=== PATIENT | female | born 1950 | race Caucasian/White ===

== ENCOUNTER 2020-04-09 13:37 | Emergency (ER) | payer MEDICARE, SELFPAY ==
--- NOTE | ~2020-04-09 | XR_ITS ---
XR ankle RT min 3V DATE: 04/09/2020 13:55 INDICATION: Fell one week ago. Right ankle and foot pain TECHNIQUE: 4 views COMPARISON: None FINDINGS: There is a virtually nondisplaced lateral malleolar fracture. The medial malleolus and post erior malleolus appear intact and the ankle mortise is preserved. Diffuse osteopenia. Plantar calcaneal enthesopathy. IMPRESSION: Virtually nondisplaced lateral malleolar fracture Reviewed, dictated and finalized at location B. TING PRESS MACHINE OPERATOR
--- NOTE | ~2020-04-09 | XR_ITS ---
XR foot RT min 3V DATE: 04/09/2020 13:55 INDICATION: Fall one week ago. Right ankle and foot pain TECHNIQUE: 4 views COMPARISON: None FINDINGS: Diffuse osteopenia. Mild plantar calcaneal enthesopathy. There is soft tissue swelling particularly along the dorsum of the forefoot. Minimally displaced lateral malleolar fracture is again demonstrated. No other fracture or dislocatio n. No periosteal reaction or bone destruction. IMPRESSION: Minimally displaced lateral malleolar fracture Plantar calcaneal enthesopathy Osteopenia Reviewed, dictated and finalized at location B. MANAGER
[2020-04-09 13:45] VITALS: BP 148/84; PULSE 75; RESP 16; TEMP 36.3; O2SAT 99
--- NOTE | 2020-04-09 14:09 | ED.LOWEXIN ---
HPI - Extremity Injury (Lower) General Chief Complaint: Extremity Injury, Lower Stated Complaint: FALL/INJURED R ANKLE/FOOT Time Seen by Provider: 04/09/20 14:00 Source: patient Mode of arrival: ambulatory Limitations: no limitations History of Present Illness HPI Narrative: Vibha Ryan is a 70 yo femalw with a PMH of breast cancer, nocturnal seizures, and high cholesterol, who comes [facility] today with right foot and ankle pain and swelling after a fall that occurred 1 week ago. Patient is feeding birds and fell on the ice and has had pain with ambulation, has been using cane to ambulate. There is mild swelling to the lower leg below the patella but no tenderness are redness, but lateral ankle appears quite swollen, rates pain as 4-5 out of 10 when tries to ambulate, not much pain at rest MD complaint: hip injury Related Data Home Medications Medication Instructions Recorded Confirmed levetiracetam 750 mg PO BID 04/09/20 04/09/20 omeprazole 20 mg PO DAILY 04/09/20 04/09/20 pravastatin 40 mg PO EVERY OTHER DAY 04/09/20 04/09/20 Allergies Allergy/AdvReac Type Severity Reaction Status Date / Time adhesive Allergy Unknown ITCHING Verified 04/09/20 14:16 cyclosporine [From Restasis] Allergy Blurry Verified 04/09/20 14:21 Vision exemestane Allergy Swelling Verified 04/09/20 14:21 ibandronate sodium Allergy Rash Verified 04/09/20 14:21 [From Boniva] melatonin Allergy Depression Verified 04/09/20 14:21 piroxicam Allergy Nose Bleed Verified 04/09/20 14:21 tamoxifen Allergy Other Verified 04/09/20 14:21 zolpidem Allergy Depression Verified 04/09/20 14:21 Review of Systems Review of Systems: Narrative: CONSTITUTIONAL: Denies fever, chills, sweats. EYES: Denies visual changes, redness, discharge. ENT: Denies rhinorrhea, congestion, sore throat, otalgia. CARDIOVASCULAR: Denies chest pain, palpitations, edema. RESPIRATORY: Denies dyspnea, wheezing, cough GASTROINTESTINAL: Denies abdominal pain, nausea, vomiting, diarrhea. GENITOURINARY: Denies dysuria, hematuria, abnormal discharge SKIN: Denies rash or itching. NEUROLOGIC: Denies numbness, or focal weakness. PSYCHIATRIC: Denies anxiety or depression. Right ankle pain and swelling (swelling starts below knee to foot) PMF Past Medical History Medical History (Updated 04/09/20 @ 14:43 by Jennifer Ho CNP) Breast cancer High cholesterol Nocturnal seizures Osteopenia Surgical History Surgical History H/O mastectomy Social History Social History (Updated 04/09/20 @ 14:37 by Jennifer Ho CNP) Smoking status: Never smoker Alcohol intake: current Comments At time of signature, I agree with nursing past medical, surgical, social and family history. There is no relevant family history pertinent to the presenting complaint. Exam Narrative: Exam Narrative: GENERAL: This is a well-nourished, well-developed patient, in mild distress. HEAD: normocephalic, atraumatic. EYES: PSclera clear/white. Vision is grossly intact. EARS: External ears normal, n. Hearing grossly intact. NOSE: External nose normal without nasal discharge, nares without redness, no rhinorrhea. THROAT: Mucous membranes moist, NECK: Neck supple, CARDIOVASCULAR: Regular rate and rhythm without murmurs, gallops, or rubs. RESPIRATORY: Clear to auscultation. Breath sounds equal bilaterally. No wheezes, rales, or rhonchi. GASTROINTESTINAL: Abdomen soft, SKIN: warm, intact with no suspicious lesions or rash, good texture and turgor. NEURO: awake, alert, and oriented to person, place and time. There were no obvious focal neurologic abnormalities. Steady gait EXTREMITIES: Normal range of motion on L; right ankle lateral swelling, able to wiggle toes with pain on any movement, pedal pulse, leg are swollen below the patella to foot but no warmth redness or pain in the calf, patient has normal strength and extremity normal
== END 2020-04-09 14:55 | disposition home or self-care (01) ==
PROVIDERS: Emergency Provider Nurse Practitioner; PCP Internal Medicine
DX: S82.61XA Displaced fracture of lateral malleolus of right fibula, initial encounter for closed fracture (principal); W00.0XXA Fall on same level due to ice and snow, initial encounter; Z85.3 Personal history of malignant neoplasm of breast; E78.00 Pure hypercholesterolemia, unspecified; M85.80 Other specified disorders of bone density and structure, unspecified site; G40.909 Epilepsy, unspecified, not intractable, without status epilepticus; Z90.10 Acquired absence of unspecified breast and nipple
CPT/HCPCS: 73610; 73630; 99214; G0463

== ENCOUNTER 2020-08-04 16:16 | Outpatient (CLI) | payer MEDICARE, SELFPAY ==
--- NOTE | ~2020-08-04 | US_ITS ---
EXAMINATION: US venous doppler LE RT DATE: 08/04/2020 16:47 INDICATION: Right lower limb pain and swelling TECHNIQUE: Grayscale ultrasound images without and with compression and Doppler ultrasound images of the right lower extremity veins were obtained. COMPARISON: None. FINDINGS: The [id number] right popliteal vein is noncompressible, filled with hypoechoic thrombus with smal l amount of residual flow seen on color Doppler. The visualized portions of right common femoral vein , profunda (deep) femoral vein, femoral vein, proximal popliteal vein, posterior tibial veins, perone al veins, gastrocnemius vein and greater saphenous vein outflow are patent. IMPRESSION: 1. Nonocclusive deep venous thrombosis in the pcpnz-[id number]-bgxd right popliteal vein. Reviewed, dictated and finalized at location A. IMPRESSION: 1. Nonocclusive deep venous thrombosis in the [id number]-[id number] right popliteal v ein.
[2020-08-04 17:46] LABS: Basophils Absolute Auto 0.1 K/mm3 (0.0-0.1); Basophils Percent Auto 0.7 % (0.2-1.2); Eosinophils Absolute Auto 0.1 K/mm3 (0-0.3); Eosinophils Percent Auto 1.2 % (0-4.4); Hematocrit 42.6 % (37.0-47.0); Hemoglobin 13.7 g/dL (12.0-15.0); Immature Granulocyte Absolute 0.03 K/mm3 (0.00-0.031); Immature Granulocyte Percent A 0.4 % (0-0.5); Lymphocytes Absolute Auto 2.29 K/mm3 (0.9-3.2); Lymphocytes Percent Auto 27.9 % (18.3-44.2); Mean Corpuscular HGB Conc 32.2 g/dl (32-36); Mean Corpuscular Hemoglobin 31.2 pg (26-34); Mean Platelet Volume 9.2 fl (7.4-10.4); Monocytes Absolute Auto 0.6 K/mm3 (0.1-0.6); Monocytes Percent Auto 7.3 % (2.6-8.5); Neutrophils Absolute Auto 5.1 K/mm3 (1.3-6.7); Neutrophils Percent Auto 62.5 % (45.5-73.1); Platelet Count Result 298 k/mm3 (150-375); Red Blood Count 4.39 M/mm3 (4.2-5.4); Red Cell Distribution Width 13.4 % (11.5-14.5); White Blood Count 8.2 K/mm3 (4.5-10.0)
[2020-08-04 17:56] LABS: Alanine Aminotransferase 38 U/L (4-35); Alkaline Phosphatase 76 U/L (38-126); Anion Gap 11 mmol/L (8-16); Aspartate Amino Transferase 50 U/L (14-36); Bilirubin,Total 0.5 mg/dL (0.2-1.3); Blood Urea Nitrogen 16 mg/dL (7-17); Calcium 10.1 mg/dL (8.4-10.2); Carbon Dioxide 28 mmol/L (22-30); Chloride 104 mmol/L (98-107); Estimated Glomerular Filt Rate > 60; Glucose 92 mg/dL (65-105); Potassium 4.2 mmol/L (3.4-5.0); Sodium 143 mmol/L (137-145)
== END 2020-08-04 16:17 | disposition home or self-care (01) ==
PROVIDERS: PCP Internal Medicine; Visit Provider Clinical Nurse Specialist
DX: I82.431 Acute embolism and thrombosis of right popliteal vein (principal)
CPT/HCPCS: 36415; 80053; 85025; 93971

== ENCOUNTER 2020-11-10 12:19 | Outpatient (CLI) | payer MEDICARE, SELFPAY ==
--- NOTE | ~2020-11-10 | US_ITS ---
EXAMINATION: US venous doppler LE RT DATE: 11/10/2020 12:51 INDICATION: Acute embolism and thrombosis of unspecified deep veins of unspecified lower extremity. TECHNIQUE: Grayscale ultrasound images without and with compression and Doppler ultrasound images of the right lower extremity veins were obtained. COMPARISON: Ultrasound 08/04/2020 FINDINGS: The visualized portions of right common femoral vein, profunda (deep) femoral vein, femoral vein, pop liteal vein, peroneal veins, posterior tibial veins, and greater saphenous vein outflow are patent. IMPRESSION: 1. No deep venous thrombosis. Reviewed, dictated and finalized at location A.
== END 2020-11-10 12:20 | disposition home or self-care (01) ==
LOC: ANHIMG 12:25
PROVIDERS: PCP Internal Medicine; Visit Provider Clinical Nurse Specialist
DX: I82.401 Acute embolism and thrombosis of unspecified deep veins of right lower extremity (principal); I82.431 Acute embolism and thrombosis of right popliteal vein
CPT/HCPCS: 93971

== ENCOUNTER 2020-11-25 08:00 | Outpatient (RCR) | payer MEDICARE, SELFPAY ==
--- NOTE | 2020-09-02 11:37 | PTOPEVAL ---
Thank you for referring Vibha Ryan to [facility].? The patient is scheduled to be seen for therapy? 2 x/week for 6 weeks. Please review, sign, date and return this plan of care MO. I agree with and certify that the following plan of care is medically necessary. Referring Physician Date Attending Provider: Rand Alvarado NP Diagnosis right fibula fx, left knee and hip pain with OA Onset 04/02/20 Cause fall Additional Evaluation Detail She went to feed the birds and she slipped on a wet ground. She was in a boot for 8 wks. She did not have an AD. On blood thinners due to DVT right lower leg Subjective Information She currently c/o right ankle Query Text:As Reported By Patient/ pain and left knee/hip pain. Family She reports limitations with walking, ADL's, bending activities, car transfers, transfers from low surfaces, negotiating steps. She has difficulty with prolonged standing. She has difficulty sleeping at night due to pain. She denies popping/clicking of left hip, but constant groin pain. Pain Assessment Left Knee(s) Reported Pain Level 1 Pain Description Aching Pain Frequency Continuous Lowest Pain Intensity 1 Greatest Pain Intensity 4 Pain Aggravating Factors ADL's,Bending,Lifting Left Hip(s) Reported Pain Level 4 Pain Description Sharp,Shooting Pain Frequency Continuous Greatest Pain Intensity 8 Pain Aggravating Factors ADL's,Bending,Exercise/ Activity,Lifting,Stair Climbing,Walking,Weight Bearing/Standing Right Ankle(s) Reported Pain Level 1 Pain Description Aching Pain Frequency Continuous Lowest Pain Intensity 1 Greatest Pain Intensity 8 Pain Aggravating Factors ADL's,Bending,Exercise/ Activity,Stair Climbing, Walking,Weight Bearing/ Standing Lower Extremity Range of Motion Ankle/Foot Range of Motion Right Ankle Dorsiflexion With Knee Extension 5 Range of Motion - Active Ankle Plantarflexion Range of Motion - 34 Active
--- NOTE | 2020-10-07 15:05 | PTOPEVAL ---
Physical Therapy Progress Note Thank you for referring Vibha Ryan to [facility].? She has received 10 therapy visits to address limitations. She is progressing slowly towards goals. See summary below for detail of information. The patient is scheduled to be seen for therapy? 1-2 x/week for 4 weeks. Please review, sign, date and return this plan of care MO. I agree with and certify that the following plan of care is medically necessary. Referring Physician Date Attending Provider: Rand Alvarado Diagnosis right fibula fx, left knee and hip pain with OA Onset 04/02/20 Cause fall Additional Evaluation Detail She went to feed the birds and she slipped on a wet ground. She was in a boot for 8 wks. She did not have an AD. On blood thinners due to DVT right lower leg until 11/09/20 Subjective Information She reports increased LE Query Text:As Reported By Patient/ swelling. She does feel her Family walking has improved with therapy. She has varied pain and ability to dominguez activities. She cont to intense left hip pain, ache pain of left knee and right ankle pain varies. She reports cont limitations with walking, ADL's, bending activities, car transfers, transfers from low surfaces, negotiating steps. She has difficulty with prolonged standing. She has difficulty sleeping at night due to left hip pain. Pain Assessment Left Knee(s) Reported Pain Level 3 Pain Description Aching,Tightness Lowest Pain Intensity 3 Greatest Pain Intensity 6 Pain Aggravating Factors Prolonged Position,Sitting Left Hip(s) Reported Pain Level 3 Pain Description Soreness,With Movement Pain Frequency Continuous Lowest Pain Intensity 3 Greatest Pain Intensity 7 Pain Aggravating Factors Exercise/Activity,Prolonged Position,Sitting,Walking, Weight Bearing/Standing Right Ankle(s) Reported Pain Level 3 Pain Description Tightness Lowest Pain Intensity 1 Greatest Pain Intensity 4 Pain Aggravating Factors ADL's,Bending,Exercise/ Activity,Stair Climb
--- NOTE | 2020-11-08 11:18 | PTOPEVAL ---
Physical Therapy progress note Thank you for referring Vibha Ryan to [facility].?Vibha has attended 19 therapy visits to address sona LE impairments. She is progress towards her therapy goals with improved pain, function, strength and joint motion. Please see update below for information on progress. The patient is scheduled to be seen for therapy? 2x/week for 4 weeks. Please review, sign, date and return this plan of care MO. I agree with and certify that the following plan of care is medically necessary. Referring Physician Date Admitting Provider: Attending Provider: Rand Alvarado NP Diagnosis right fibula fx, left knee and hip pain with OA Onset 04/02/20 Cause fall Additional Evaluation Detail She went to feed the birds and she slipped on a wet ground. She was in a boot for 8 wks. She did not have an AD. On blood thinners due to DVT right lower leg until 11/09/20 Subjective Information She reports improved right Query Text:As Reported By Patient/ ankle swelling. She has Family difficulty with sleeping due to pain and acheness with positional changes. She had increased pain after long car ride with prolong sitting position Pain Assessment Left Knee(s) Reported Pain Level 2 Pain Description Aching,Cramping Lowest Pain Intensity 1 Greatest Pain Intensity 5 Left Hip(s) Reported Pain Level 1 Pain Description Aching Lowest Pain Intensity 1 Greatest Pain Intensity 3 Right Ankle(s) Reported Pain Level 0 Lowest Pain Intensity 0 Greatest Pain Intensity 1 Lower Extremity Range of Motion General Lower Extremity Range of Motion Gross Lower Extremity Range of Motion left hip flex: 90 dg active Comments and 96 dg passive, left hip ext: -10 dg from neutral range and -2 passive hip ext from neutral left knee: 125 dg active Ankle/Foot Range of Motion Right Ankle Dorsiflexion With Knee Extension 5 Range of Motion - Active Ankle Plantarflexion Range of Motion - 50 Active Query Text: Ankle Eversion Range of Motion - Active 12 Ankle Eversion Range of Motion - Passive 18 Ankle Inversion Range of Motion - Active 22 Ankle Inversion Range of Motion - 25 Passive Ankle/Toe Range of Motion Limitations Edema,Soft Tissue Restriction Lower Extremity Muscle Strength Te
--- NOTE | 2020-11-29 11:58 | PCPTNOTE ---
This treatment is being continued on visit number [id number]. Please see documentation on both accounts to view progress. Completed interventions, outcomes, and problems have been marked as Inactive to facilitate the copying of the Care plan routine for recurring accounts.
== END 2020-11-29 09:22 | disposition home or self-care (01) ==
LOC: ANHPT 08:00
PROVIDERS: PCP Internal Medicine
DX: M17.12 Unilateral primary osteoarthritis, left knee (principal); M16.12 Unilateral primary osteoarthritis, left hip; S82.891D Other fracture of right lower leg, subsequent encounter for closed fracture with routine healing
CPT/HCPCS: 97110; 97112; 97140; 97162; 97530

== ENCOUNTER 2020-12-02 07:07 | Outpatient (RCR) | payer MEDICARE, SELFPAY ==
--- NOTE | 2020-11-29 11:59 | PCPTNOTE ---
The treatment documented on this account is a continuation of the treatment documented on visit number 23 from [id number]. Please see documentation on both accounts to view progress. The Plan of Care has been transitioned and updated within the new V#[id number]. I have addressed and agree with the discipline specific Problems, Interventions, and Goals for the current certification period. Completed interventions, outcomes, and problems have been marked as Inactive to facilitate the copying of the Care plan routine for recurring accounts.
--- NOTE | 2020-12-02 10:44 | PTOPEVAL ---
Physical Therapy Discharge Note Thank you for referring Vibha Ryan to [facility].? Vibha has attended 25 therapy visits to address her LE impairments. As result of skilled therapy services she demonstrates improved joint motion, LE strength, pain level and ability to perform functional task. She has partially achieved her therapy goals at this time. Will DC skilled therapy services with recommendations she continue with her walking and HEP. Please review, sign, date and return this discharge note MO. I agree with and certify that the following plan of care is medically necessary. Referring Physician Date Attending Provider: Rand Alvarado Diagnosis right fibula fx, left knee and hip pain with OA Onset 04/02/20 Cause fall Additional Evaluation Detail She went to feed the birds and she slipped on a wet ground. She was in a boot for 8 wks. She did not have an AD. On blood thinners due to DVT right lower leg until 11/09/20 Subjective Information She has improved right ankle Query Text:As Reported By Patient/ swelling, but change in shape Family of lower leg as swelling decreased. Reports improved ability to tolerate sleeping and turning in bed with improved symptoms. She denies any pain after long car ride with prolong sitting position. Pain Assessment Left Knee(s) Reported Pain Level 0 Pain Description Aching Lowest Pain Intensity 0 Greatest Pain Intensity 2 Left Hip(s) Reported Pain Level 3 Pain Description Aching Pain Frequency Continuous Lowest Pain Intensity 2 Greatest Pain Intensity 5 Right Ankle(s) Reported Pain Level 0 Lowest Pain Intensity 0 Greatest Pain Intensity 1 Lower Extremity Range of Motion General Lower Extremity Range of Motion Gross Lower Extremity Range of Motion sona hip flex: 110 dg passive left hip ext: 0 dg and 2 passive hip ext from neutral right hip ext: 8 dg left knee: 0-128 dg active Ankle/Foot Range of Motion Right Ankle Eversion Range of Motion - Active 15 Ankle Eversion Range of Motion - Passive 25 Ankle Inversion Range of Motion - Active 30 Lower Extremity Muscle Strength Testing Hip Strength Right Hip Flexion Strength 5 Normal Hip Extension Strength 4- Good - Hip Abduction Strength 4- Good - Left Hip Flexion Strength 5 Normal
== END 2020-12-02 15:34 | disposition home or self-care (01) ==
LOC: ANHPT 07:07
PROVIDERS: PCP Internal Medicine
DX: M17.12 Unilateral primary osteoarthritis, left knee (principal); M16.12 Unilateral primary osteoarthritis, left hip; S82.891D Other fracture of right lower leg, subsequent encounter for closed fracture with routine healing
CPT/HCPCS: 97110

== ENCOUNTER → 2020-12-15 13:21 | Outpatient (CLI) | payer MEDICARE, SELFPAY ==
--- NOTE | ~2020-12-15 | MM_ITS ---
EXAMINATION: MM screening kemal LT w enrike HISTORY: Screening mammogram TECHNIQUE: Craniocaudal and mediolateral oblique 3-D tomosynthesis images were obtained and synthetic 2-D images were generated. CAD analysis was submitted and interpreted. COMPARISON: No prior mammogram is available for comparison at this institution. BREAST PARENCHYMAL COMPOSITION: There are scattered areas of fibroglandular density. FINDINGS: There are two low density circumscribed 4 - 5 mm opacities in the mid to lower outer left b reast; the appearance is benign. There is no evidence of suspicious mass, calcification, or architec tural distortion to suggest malignancy in either breast. IMPRESSION: 1. No mammographic evidence of malignancy. 2. Recommend routine screening mammography in one year. BI-RADS Category 2: Benign finding(s). Reviewed, dictated and finalized at location A.
== END ==
PROVIDERS: PCP Internal Medicine; Visit Provider Clinical Nurse Specialist
DX: Z12.31 Encounter for screening mammogram for malignant neoplasm of breast (principal)
CPT/HCPCS: 77063; 77067

== ENCOUNTER 2020-12-27 01:56 | Day surgery (SDC) | payer MEDICARE, SELFPAY ==
[2020-12-07 12:50] VITALS: BMI 30.9
[2020-12-27 09:29] VITALS: BP 134/82; PULSE 84; RESP 22; TEMP 37.1; O2SAT 96; BMI 30.4
[2020-12-27] MEDS: LACTATED RINGERS 1,000 ML 150 ML IV CONT (09:40)
--- NOTE | 2020-12-27 09:46 | WPDANESEPPF ---
Anes - Initial Pre Proc Eval Procedure: Operation Date: 12/27/20 10:30 Proposed Procedures p Colonoscopy - Piter Mejia MD Date/Time: 12/27/20 09:46 Surgeon: Piter Mejia MD Pre Op Diagnosis: diarrhea Patient Data Age: 70 Gender: F Height: 1.75 m Weight: 93.5 kg Last Vital Signs Temp 37.1 C 12/27/20 09:29 Pulse 84 12/27/20 09:29 Resp 22 H 12/27/20 09:29 BP 134/82 12/27/20 09:29 Pulse Ox 96 12/27/20 09:29 Allergies Allergy/AdvReac Type Severity Reaction Status Date / Time adhesive Allergy Unknown ITCHING Verified 12/27/20 09:23 cyclosporine [From Restasis] Allergy Blurry Verified 12/27/20 09:23 Vision exemestane Allergy Swelling Verified 12/27/20 09:23 ibandronate sodium Allergy Rash Verified 12/27/20 09:23 [From Boniva] melatonin Allergy Depression Verified 12/27/20 09:23 piroxicam Allergy Nose Bleed Verified 12/27/20 09:23 tamoxifen Allergy Gave leg Verified 12/27/20 09:23 blood clot zolpidem Allergy Depression Verified 12/27/20 09:23 Home Medications Medication Instructions Recorded Confirmed Type aspirin 81 mg tablet,delayed 81 mg PO DAILY 04/13/20 12/07/20 History release calcium carbonate 600 mg calcium 600 mg PO DAILY 04/13/20 12/07/20 History (1,500 mg) tablet cholecalciferol (vitamin D3) 125 125 mcg PO DAILY 04/13/20 12/07/20 History mcg (5,000 unit) capsule mecobalamin (vitamin B12) 1,000 1,000 mcg PO DAILY 04/13/20 12/07/20 History mcg chewable tablet multivitamin 1 tablet PO DAILY 04/13/20 12/07/20 History vit C,E,zinc,copper-[id number] 250 1 cap PO DAILY 04/13/20 12/07/20 History mg-lutein 5 mg-zeaxanthin 1 mg capsule omeprazole 20 mg capsule,delayed 20 mg PO DAILY #90 cap 09/28/20 12/07/20 Rx release antiarthritic combination no.2 900 900 mg PO BID 11/17/20 12/07/20 History mg tablet atorvastatin 10 mg tablet 10 mg PO DAILY #90 tablet 11/23/20 12/07/20 Rx levetiracetam [Keppra] 750 mg PO BID 12/07/20 12/07/20 History azelastine-fluticasone 137 mcg-50 1 spray INTRANASAL BID #23 g 12/21/20 Rx mcg/spray nasal spray methylprednisolone 4 mg tablets in See Rx Instructions PO PER PKG DIR 12/21/20 Rx a dose pack #21 ea Patient hx anesthesia problems: none Family hx anesthesia problems: none Results Review: All pre-operative results and documents have been reviewed as part of the pre-operative evaluation. 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, permanent put in Right nipple reconstruction: 06/05/2011 H/O shoulder surgery Right: 03/24/2005 History of appendectomy 1979 History of arthroscopy of left knee 09/14/1997 History of hysterectomy 1979 History of rotator cuff surgery History of tonsillectomy 1958 Family History Family History Mother Cerebrovascular accident Sibling Thyroid disease Other Arthritis Social History Social History Smoking status: Never smoker Alcohol intake: current Drinks per week: 7 Substance use: never Substance use type: does not use Living arrangements: with family Gender identity (if verbalized by the patient): Female Spiritual care concerns: No Anes - Eval Final PreProcedure Day of Procedure 12/27/20 09:46 Patient weight: obese Heart: regular rate and rhythm Lungs: clear to auscultation Airway: Mallampati scale class 1 Neurological: alert and oriented Last oral inta
--- NOTE | 2020-12-27 10:11 | PM.HPGS ---
History of Present Illness History of Present Illness Consent: Risks, benefits, and alternatives have been discussed and questions answered. Patient agrees to proceed with procedure. Chief complaint: diarrhea Narrative: Vibha Ryan is a 70 year old female with last colonoscopy 7 years ago had polyp, self-limited diarrhea when she was using eliquis- discontinued and now back to her baseline BM's Review of Systems Constitutional: Constitutional: Denies headache(s) and Denies weakness Eyes: Eyes: Denies blurry vision ENT: Reports Normal hearing present, Denies headache(s) and Denies neck pain Cardiovascular: Cardiovascular: Denies chest pain and Denies dyspnea Respiratory: Respiratory: Denies dyspnea Gastrointestinal: Gastrointestinal: Reports no additional gastrointestinal complaints Genitourinary: Genitourinary: Denies dysuria Musculoskeletal: Musculoskeletal: Denies neck pain Integumentary/Breasts: Skin/Breast: Denies dry skin Neurologic: Reports Normal hearing present, Denies headache(s) and Denies weakness Psychiatric: Psychiatric: Denies anxiety Endocrine: Endocrine: Denies change in body appearance Hematologic/Lymphatic: Hematologic/Lymphatic: Denies easy bleeding Allergic/Immunologic: Allergic/Immunologic: Denies urticaria PMFSH Past Medical History Medical History (Updated 12/27/20 @ 10:24 by Piter Mejia MD) Adenomatous colon polyp Breast cancer Broken leg Right 03/2020 Constipation High cholesterol Mild acid reflux Nocturnal seizures Osteopenia Seizures Vision changes Wears glasses Surgical History Surgical History H/O hernia repair 1979 H/O mastectomy Right: 06/28/2010 H/O reduction mammoplasty 11/28/2010: Left breast Liposuction, him manager removed, permanent put in Right nipple reconstruction: 06/05/2011 H/O shoulder surgery Right: 03/24/2005 History of appendectomy 1979 History of arthroscopy of left knee 09/14/1997 History of hysterectomy 1979 History of rotator cuff surgery History of tonsillectomy 1958 Family History Family History Mother Cerebrovascular accident Sibling Thyroid disease Other Arthritis Social History Social History Smoking status: Never smoker Alcohol intake: current Drinks per week: 7 Substance use: never Substance use type: does not use Living arrangements: with family Gender identity (if verbalized by the patient): Female Spiritual care concerns: No Meds Home Medications and Allergies Home Medications Medication Instructions Recorded Confirmed Type aspirin 81 mg tablet,delayed 81 mg PO DAILY 04/13/20 12/07/20 History release calcium carbonate 600 mg calcium 600 mg PO DAILY 04/13/20 12/07/20 History (1,500 mg) tablet cholecalciferol (vitamin D3) 125 125 mcg PO DAILY 04/13/20 12/07/20 History mcg (5,000 unit) capsule mecobalamin (vitamin B12) 1,000 1,000 mcg PO DAILY 04/13/20 12/07/20 History mcg chewable tablet multivitamin 1 tablet PO DAILY 04/13/20 12/07/20 History vit C,E,zinc,copper-xuubj1s 250 1 cap PO DAILY 04/13/20 12/07/20 History mg-lutein 5 mg-zeaxanthin 1 mg capsule omeprazole 20 mg capsule,delayed 20 mg PO DAILY #90 cap 09/28/20 12/07/20 Rx release antiarthritic combination no.2 900 900 mg PO BID 11/17/20 12/07/20 History mg tablet atorvastatin 10 mg tablet 10 mg PO DAILY #90 tablet 11/23/20 12/07/20 Rx levetiracetam [Keppra] 750 mg PO BID 12/07/20 12/07/20 History azelastine-fluticasone 137 mcg-50 1 spray INTRANASAL BID #23 g 12/21/20 Rx mcg/spray nasal spray methylprednisolone 4 mg tablets in See Rx Instructions PO PER PKG DIR 12/21/20 Rx a dose pack #21 ea Allergies Allergy/AdvReac Type Severity Reaction Status Date / Time adhesive Allergy Unknown ITCHING Verified
[2020-12-27 10:26] VITALS: BP 108/76; PULSE 84; RESP 19; O2SAT 97
[2020-12-27 10:36] VITALS: BP 116/73; PULSE 81; RESP 20; O2SAT 97
[2020-12-27 10:46] VITALS: BP 129/78; PULSE 71; RESP 20; O2SAT 97
== END 2020-12-27 11:16 | disposition home or self-care (01) ==
PROVIDERS: PCP Internal Medicine; Visit Provider Internal Medicine Gastroenterology
PROC: 0DJD8ZZ Inspection of Lower Intestinal Tract, Via Natural or Artificial Opening Endoscopic (ICD-10-PCS; CPT 45378; principal; 2020-12-27 10:30)
DX: Z12.11 Encounter for screening for malignant neoplasm of colon (principal); D12.2 Benign neoplasm of ascending colon; K57.30 Diverticulosis of large intestine without perforation or abscess without bleeding; R19.7 Diarrhea, unspecified; K64.8 Other hemorrhoids; Z85.3 Personal history of malignant neoplasm of breast; E78.00 Pure hypercholesterolemia, unspecified; K21.9 Gastro-esophageal reflux disease without esophagitis; M19.90 Unspecified osteoarthritis, unspecified site; E66.9 Obesity, unspecified; Z68.30 Body mass index [BMI] 30.0-30.9, adult
CPT/HCPCS: 45385; 88305; J2704; J7120

== ENCOUNTER → 2021-02-09 08:43 | Outpatient (CLI) | payer MEDICARE, SELFPAY ==
--- NOTE | ~2021-02-09 | DEXA_ITS ---
Bone Density Report Name: PATEL ROBERTS Age: 70 Sex: Female Ethnicity: White Date of : 1950 Indication: postmenopausal; screening for osteoporosis; prior fracture; seizure disorder; hysterectomy; Referring Provider: Taniya Campbell Study: Bone densitometry was performed. Exam Date: February 09, 2021 Accession number: [id number] Bone Density: Region BMD T-score Z-score Classification AP Spine (L1, L2, L3) 0.986 -0.3 1.8 Normal Femoral Neck (Left) 0.863 0.1 2.0 Normal Total Hip (Left) 0.887 -0.5 1.1 Normal Femoral Neck (Right) 0.697 -1.4 0.5 Osteopenia Total Hip (Right) 0.872 -0.6 1.0 Normal Total Hip Mean 0.880 -0.6 1.1 Normal World Health Organization criteria for BMD impression classify patients as: Normal (T-score at or above -1.0), Osteopenia (T-score between -1.0 and -2.5), or Osteoporosis (T-score at or below -2.5). 10-year Fracture Risk(1): Major Osteoporotic Fracture 15% Hip Fracture 1.8% Reported Risk Factors: [place] (), Neck BMD=0.697, BMI=31.5, previous fracture (1) FRAX(R) Version 3.08. Fracture probability calculated for an untreated patient. Fracture probability may be lower if the patient has received treatment. Clinical Information Provided by Patient: Has had a low trauma fracture Has used the following medications: Vitamin D, Calcium, MTV Has the following medical conditions: Any Seizure Disorders, Hysterectomy, breast cancer age 60 Patient maximum height was 69 Menopause Age: 29 No regular weight bearing exercise Drinks caffeinated beverages Onset of menses at age 12 Number of children 2 Impression: The patient has low bone mass, based on the Right Femoral Neck T-score. The patient has an estimated ten-year risk of hip fracture of 1.8% and an estimated ten-year risk of major fracture of 15%, based on the WHO FRAX algorithm. The patient has risk factors, including: previous fracture. Discussion: BONE DENSITY IS LOW AT ONE OR MORE SKELETAL SITES. This patient's lowest T-score is low at one or more skeletal sites. It meets the World Health Organization's (WHO) criteria for ?low bone mass? (T-score between -1.0 and -2.5). The patient's 10-year risk of fracture as calculated by FRAX is less than the threshold where pharmacological therapy is recommended by the National Osteoporosis Foundation (NOF). However, all treatment decisions require clinical judgment and consideration of individual patient factors, including patient preferences, comorbidities, previous drug use, risk factors not captured in the FRAX model (e.g., frailty, falls, vitamin D deficiency, increased bone turnover, interval significant decline in bone density) and possible under or overestimation of fracture risk by FRAX. The patient should follow a healthful lifestyle (good nutrition with a
== END ==
PROVIDERS: PCP Internal Medicine; Visit Provider Clinical Nurse Specialist
DX: Z78.0 Asymptomatic menopausal state (principal); M85.851 Other specified disorders of bone density and structure, right thigh
CPT/HCPCS: 77080

== ENCOUNTER 2021-05-16 08:59 | Outpatient (CLI) | payer MEDICARE, SELFPAY ==
--- NOTE | 2021-05-16 | EST_ITS ---
Patient Info Name: Vibha Ryan Age: 71 years : 1950 Gender: Female Ht: 69 in Wt: 202 lbs BSA: 2.14 m2 HR: 61 bpm BP: 157 / 96 mmHg Heart Rhythm: Sinus Rhythm Exam Date: 05/16/2021 10:34 AM Exam Location: [facility], [place] Stress Patient Status: Outpatient Admit Date: 05/16/2021 Staff Ordering Physician: Jayy Morris DO Attending Provider: Jayy Morris DO Exercise Technologist: Tahira Morgan CT Exercise Physician: Urbano Franco DO Exam Type: CA stress test treadmill Study Info Indications R07.9 - Chest pain, unspecified A regadenoson stress test was performed. Summary 1. 1. Negative lexiscan stress test for ischemic ST changes by ECG criteria. 2. 2. Baseline hypertension. 3. 3. Nuclear scan to follow and will be reported separately. Please correlate with it. 4. 4. Patient informed of the above results. Protocol: Lexiscan Stress ECG Details Stage: REST Duration (min): 4 min : 13 sec HR (bpm): 65 SBP (mmHg): 147 DBP (mmHg): 92 Stage: REST Duration (min): 11 min : 39 sec HR (bpm): 62 SBP (mmHg): 147 DBP (mmHg): 92 Stage: STAGE 1 Duration (min): 1 min : 0 sec HR (bpm): 82 SBP (mmHg): 147 DBP (mmHg): 92 Stage: RECOVERY Duration (min): 1 min : 0 sec HR (bpm): 74 SBP (mmHg): 147 DBP (mmHg): 92 Stage: RECOVERY Duration (min): 2 min : 0 sec HR (bpm): 71 SBP (mmHg): 147 DBP (mmHg): 92 Stage: RECOVERY Duration (min): 3 min : 0 sec HR (bpm): 71 SBP (mmHg): 147 DBP (mmHg): 92 Stage: RECOVERY Duration (min): 3 min : 47 sec HR (bpm): 73 SBP (mmHg): 140 DBP (mmHg): 85 Rest HR: 62 bpm Peak HR: 82 bpm Rest Sys BP: 147 mmHg Peak Sys BP: 140 mmHg Max Pred HR: 149 bpm % Max Pred HR: 55 % Target HR: 127 bpm Max RPP: 11,480 bpm*mmHg Termination Reason: Completed protocol Cardiac Symptoms: Headache Total Time: 1 min : 0 sec Rest Davies BP: 92 mmHg Peak Davies BP: 85 mmHg Total Dose: 0.4 mg Resting ECG Sinus rhythm. Stress ECG No ST changes. Arrhythmias None. Report Signatures
--- NOTE | ~2021-05-16 | NM_ITS ---
EXAMINATION: NM ovi stress w perfusion DATE: 05/16/2021 13:02 INDICATION: Chest pain. TECHNIQUE: Rest images were obtained following intravenous administration of 9.7 mCi Tc99m tetrofosmi n (Myoview). The patient was infused intravenously with Lexiscan (regadenoson). Then, 30.4 mCi Tc99m tetrofosmin (Myoview) was administered intravenously, and stress images were obtained. Data was recon structed into short axis and horizontal and vertical long axis SPECT images. Gated SPECT images were also obtained. COMPARISON: None. FINDINGS: There is no definite reversible or fixed perfusion abnormality to suggest ischemia or infar ction. There is no segmental wall motion abnormality. Left ventricular ejection fraction measures 6 7%. IMPRESSION: 1. No definite ischemia or infarct. 2. Normal left ventricular ejection fraction measuring 67%. Reviewed, dictated and finalized at location A.
== END 2021-05-16 09:00 | disposition home or self-care (01) ==
PROVIDERS: PCP Internal Medicine; Visit Provider Internal Medicine
DX: R07.89 Other chest pain (principal)
CPT/HCPCS: 78452; 93017; A9502; J2785

== ENCOUNTER 2021-09-26 07:48 | Outpatient (CLI) | payer MEDICARE, SELFPAY ==
[2021-09-26 19:40] LABS: Alanine Aminotransferase 31 U/L (6-35); Albumin Level 4.6 g/dL (3.5-5.1); Alkaline Phosphatase 72 U/L (38-126); Anion Gap 10 mmol/L (8-16); Aspartate Amino Transferase 37 U/L (14-36); Bilirubin,Total 0.5 mg/dL (0.2-1.3); Blood Urea Nitrogen 16 mg/dL (7-17); Calcium 9.2 mg/dL (8.4-10.2); Carbon Dioxide 30 mmol/L (22-30); Chloride 104 mmol/L (98-107); Cholesterol 206 mg/dL (0-200); Estimated Glomerular Filt Rate > 60; Glucose 103 mg/dL (65-110); HDL Direct 34 mg/dL; Potassium 4.3 mmol/L (3.4-5.0); Sodium 144 mmol/L (137-145); Triglycerides 169 mg/dL (<150)
[2021-09-26 19:53] LABS: LDL Cholesterol Direct 114 mg/dL
[2021-09-26 20:02] LABS: Vitamin D 25 Hydroxy 71.1 ng/mL
[2021-09-26 20:26] LABS: Basophils Absolute Auto 0.1 K/mm3 (0.0-0.1); Eosinophils Absolute Auto 0.2 K/mm3 (0-0.3); Eosinophils Percent Auto 2.6 % (0-4.4); Hematocrit 42.1 % (37.0-47.0); Hemoglobin 12.7 g/dL (12.0-15.0); Immature Granulocyte Absolute 0.02 K/mm3 (0.00-0.031); Immature Granulocyte Percent A 0.3 % (0-0.5); Lymphocytes Percent Auto 31.9 % (18.3-44.2); Mean Corpuscular HGB Conc 30.2 g/dl (32-36); Mean Corpuscular Hemoglobin 30.8 pg (26-34); Mean Corpuscular Volume 102.2 fl (80-100); Mean Platelet Volume 9.9 fl (7.4-10.4); Monocytes Absolute Auto 0.6 K/mm3 (0.1-0.6); Monocytes Percent Auto 10.2 % (2.6-8.5); Neutrophils Absolute Auto 3.4 K/mm3 (1.3-6.7); Platelet Count Result 339 k/mm3 (150-375); Red Blood Count 4.12 M/mm3 (4.2-5.4); Red Cell Distribution Width 13.2 % (11.5-14.5); White Blood Count 6.3 K/mm3 (4.5-10.0)
[2021-09-29 08:06] LABS: Levetiracetam Keppra 21.2
== END 2021-09-26 07:49 | disposition home or self-care (01) ==
LOC: ANHGOSHLAB 07:50
PROVIDERS: PCP Internal Medicine; Visit Provider Clinical Nurse Specialist
DX: G40.909 Epilepsy, unspecified, not intractable, without status epilepticus (principal); E78.5 Hyperlipidemia, unspecified; E55.9 Vitamin D deficiency, unspecified
CPT/HCPCS: 36415; 80053; 80061; 80177; 82306; 84443; 85025

== ENCOUNTER → 2022-03-15 11:19 | Outpatient (CLI) | payer MEDICARE, SELFPAY ==
--- NOTE | ~2022-03-15 | MM_ITS ---
EXAMINATION: MM screening kemal LT w enrike HISTORY: Screening mammogram; status post right mastectomy for breast cancer TECHNIQUE: Craniocaudal and mediolateral oblique 3-D tomosynthesis images were obtained and synthetic 2-D images were generated. CAD analysis was submitted and interpreted. COMPARISON: 12/15/2020 bilateral screening mammogram BREAST PARENCHYMAL COMPOSITION: There are scattered areas of fibroglandular density. FINDINGS: At the outer most aspect of the lower outer quadrant of the left breast there is a chronic stable circumscribed 4 mm opacity, unchanged since 12/15/2020, benign in appearance and behavior. No suspicious mass, architectural distortion, malignant calcification, skin thickening or retraction or significant new or developing density is noted otherwise. IMPRESSION: 1. No mammographic evidence of malignancy. 2. Recommend routine screening mammography in one year. BI-RADS Category 2: Benign finding(s). Reviewed, dictated and finalized at location A. ESSIONAL BENEFITS SALES CONSULTANT
== END ==
PROVIDERS: PCP Clinical Nurse Specialist; Visit Provider Clinical Nurse Specialist
DX: Z12.31 Encounter for screening mammogram for malignant neoplasm of breast (principal)
CPT/HCPCS: 77063; 77067

== ENCOUNTER → 2022-04-05 08:28 | Outpatient (CLI) | payer MEDICARE, SELFPAY ==
--- NOTE | ~2022-04-05 | XR_ITS ---
XR hip LT min 2V 04/05/2022 08:50 Indication: Left hip pain Procedure: 2 views left Comparison: No prior studies for comparison. Findings: There is severe osteoarthritis of the left hip. No fracture or traumatic malalignment. No s ignificant soft tissue abnormality. No foreign bodies. Impression: 1: Severe osteoarthritis of the left hip. Reviewed, dictated and finalized at location A. EMATICS PROFESSOR Impression: 1: Severe osteoarthritis of the left hip.
--- NOTE | ~2022-04-05 | XR_ITS ---
XR knee LT 2V 04/05/2022 08:50 Indication: Left knee pain Procedure: 2 views left knee Comparison: No prior studies for comparison. Findings: There is mild osteoarthritis of the left knee. No fracture, subluxation or dislocation. No joint effusion. No foreign bodies. Impression: 1: Mild osteoarthritis of the left knee. Reviewed, dictated and finalized at location A. RAL PLANNER Impression: 1: Mild osteoarthritis of the left knee.
== END ==
PROVIDERS: PCP Internal Medicine; Visit Provider Nurse Practitioner Family
DX: M17.12 Unilateral primary osteoarthritis, left knee (principal); M16.12 Unilateral primary osteoarthritis, left hip
CPT/HCPCS: 73502; 73560

== ENCOUNTER → 2022-12-11 11:54 | Outpatient (CLI) | payer MEDICARE, SELFPAY ==
--- NOTE | ~2022-12-11 | CT_ITS ---
Clinical Indication: Pulmonary embolus CT Scan of the Chest with Contrast: Technique: Contiguous sections were acquired throughout the chest after intravenous administration of 100 cc of Omnipaque 350. Dose reduction technique was used on this scan by utilizing automated expos ure control and iterative reconstruction technique. The dose-length product (DLP) was 512.03 mGy-cm. Findings: There is no evidence of any significant mediastinal, hilar or axillary lymphadenopathy. There are pul monary emboli in the right main pulmonary artery at the bifurcation of the right middle and right low er lobar pulmonary arteries, extending into the right lower lobar/segmental branches. No left-sided p ulmonary embolus identified. No definite evidence for right heart strain.. There is no evidence of ao rtic dissection or aneurysm. There is no evidence of pleural or pericardial effusion. The lungs are clear. No pulmonary nodules or infiltrates are noted. Images through the upper abdomen reveal 1.3 cm right adrenal nodule, indeterminate by Hounsfield unit s. Impression: Pulmonary emboli the right main pulmonary artery at the bifurcation of the right middle and right low er lobar pulmonary arteries, extending to the right lower lobar/omental branches. No definite evidence for right heart strain. Indeterminate 1.3 cm right adrenal nodule. Consider follow-up nonemergent MR or comparison with prior exams to assess for adenoma/benign lesion. Case discussed with nurse practitioner Annamarie Campbell at the time of this reading. Reviewed, dictated and finalized at [facility]. Impression: Pulmonary emboli the right main pulmonary artery at the bifurcation of the righ t middle and right lower lobar pulmonary arteries, extending to the right lower lobar/omental branches. No definite evidence for right heart strain. Indeterminate 1.3 cm right adrenal nodule. Consider follow-up nonemergent MR or comparison with prior exams to assess for adenoma/benign lesion. Case discussed with nurse practitioner Annamarie Campbell at the time of this readanaid sifuentes
[2022-12-11 12:13] LABS: Estimated Glomerular Filt Rate > 60
== END ==
PROVIDERS: PCP Clinical Nurse Specialist; Visit Provider Clinical Nurse Specialist
DX: I82.409 Acute embolism and thrombosis of unspecified deep veins of unspecified lower extremity (principal); R06.02 Shortness of breath; I26.99 Other pulmonary embolism without acute cor pulmonale
CPT/HCPCS: 71275; Q9967

== ENCOUNTER 2022-12-14 10:43 | Outpatient (CLI) | payer MEDICARE, SELFPAY ==
--- NOTE | 2022-12-14 10:55 | ECHO_ITS ---
Patient Info Name: Vibha Ryan Age: 72 years : 1950 Gender: Female Ht: 69 in Wt: 200 lbs BSA: 2.12 m2 HR: 69 bpm BP: 141 / 86 mmHg Heart Rhythm: Sinus Rhythm Technical Quality: Good Exam Date: 12/14/2022 11:23 AM Exam Location: [facility] Patient Status: Outpatient Admit Date: 12/14/2022 Staff Ordering Physician: Taniya Campbell Medical Record Consultant: Angelita Carrillo RDCS Attending Provider: Taniya Campbell Referring Physician: Shannan BERRY; Exam Type: CA echo doppler color flow Study Info Indications - other pul embolism without acute cor pul Complete two-dimensional, color flow and Doppler transthoracic echocardiogram is performed. Summary 1. Complete two-dimensional, color flow and Doppler transthoracic echocardiogram is performed. 2. Normal left ventricular size and thickness with good contractility of all segments. No segmental wall motion abnormalities. Ejection fraction 66%. Normal diastolic function. 3. Normal right ventricular size and function. 4. Left atrial chamber dimension is mildly enlarged. 5. There is mild tricuspid valve regurgitation. 6. No pulmonary hypertension, estimated pulmonary arterial systolic pressure is 33 mmHg. 7. Normal sinus rhythm. Left Ventricle Left ventricular chamber dimension is normal. Left ventricular systolic function is normal, estimated at 65-70%. There is no increased left ventricular wall thickness. Left ventricular septal wall motion is normal. The left ventricular diastolic function is normal. Right Ventricle Right ventricular chamber dimension is normal. Right ventricular systolic function is normal. Left Atria Left atrial chamber dimension is mildly enlarged. Right Atria Right atrial chamber dimension is normal. Aortic Valve The aortic valve is trileaflet. There is no aortic valve sclerosis. There is no aortic valve stenosis. There is no aortic valve regurgitation. Pulmonic Valve The pulmonic valve is normal. There is no pulmonic valve stenosis. There is no pulmonic regurgitation. Mitral Valve The mitral valve has normal leaflets. There is no mitral valve stenosis. There is trace mitral valve regurgitation. Tricuspid Valve The tricuspid valve leaflets are normal. There is no significant tricuspid valve stenosis. There is mild tricuspid valve regurgitation. No pulmonary hypertension, estimated pulmonary arterial systolic pressure is 33 mmHg. Pericardium/Pleural The pericardium appears normal. There is no pericardial effusion. Inferior Vena Cava Normal inferior vena cava with >50% collapse upon inspiration consistent with Empty right atrial pressure, 10 mmHg. Aorta The aortic root size at the sinus of Valsalva is normal. The prox ascending aorta size is normal. Left Ventricular Outflow Tract Name Value Normal LVOT 2D LVOT Diameter 1.9 cm LVOT Doppler LVOT Peak Gradient 4 mmHg LVOT Mean Gradient 3 mmHg LVOT VTI 28 cm LVOT VTI/AV VTI Ratio 0.8 LVOT Stroke Volume 79 ml LVOT CO 4.8 l/min
== END 2022-12-14 10:44 | disposition home or self-care (01) ==
LOC: ANHCARD 10:49
PROVIDERS: PCP Clinical Nurse Specialist; Visit Provider Clinical Nurse Specialist
DX: I26.99 Other pulmonary embolism without acute cor pulmonale (principal); I36.1 Nonrheumatic tricuspid (valve) insufficiency
CPT/HCPCS: 93306

== ENCOUNTER 2023-03-05 08:27 | Outpatient (CLI) | payer MEDICARE, SELFPAY ==
--- NOTE | ~2023-03-05 | US_ITS ---
EXAMINATION: US venous doppler [facility] DATE: 03/05/2023 09:12 INDICATION: Recent prior acute deep venous thrombosis and pulmonary emboli. Patient currently on bloo d thinners. TECHNIQUE: Grayscale ultrasound images without and with compression and Doppler ultrasound images of the left lower extremity veins were obtained. COMPARISON: None. FINDINGS: The visualized portions of left common femoral vein, profunda (deep) femoral vein, proximal femoral v ein, popliteal vein, peroneal veins, posterior tibial veins and greater saphenous vein outflow are pa tent. Noncompressible nonocclusive deep venous thrombosis in the mid and distal right femoral vein an d in the right gastrocnemius vein. IMPRESSION: 1. Deep venous thrombosis in the mid to distal left femoral vein and left gastrocnemius vein. Prior imaging unavailable to assess whether this is new or chronic. Reviewed, dictated and finalized at location A. DENTIAL PROGRAM DIRECTOR IMPRESSION: 1. Deep venous thrombosis in the mid to distal left femoral vein and left john rocnemius vein. Prior imaging unavailable to assess whether this is new or supervisor wheel shop [place].
--- NOTE | ~2023-03-05 | CT_ITS ---
CT of the Abdomen and Pelvis: Indication: Adrenal nodule Technique: 2.5 mm axial scans were obtained through the abdomen and pelvis prior to and following in travenous administration of 100 cc of Omnipaque 350. Dose reduction technique was used on this scan b y utilizing automated exposure control and iterative reconstruction technique. The dose-length produc t (DLP) was 1815.83 mGy-cm. Findings: Scans through the lung bases demonstrate linear bibasilar atelectasis or scarring. The liver, spleen, pancreas, and gallbladder are within normal limits. There are small bilateral nono bstructing renal stones. There is a 1.5 cm right adrenal nodule, which demonstrates Hounsfield units of 12 on precontrast images, 110 on postcontrast images, and 33 on delayed images. No evidence of aor tic aneurysm. No lymphadenopathy. No bowel obstruction or bowel wall thickening. There is no evidence to suggest acute appendicitis. Images through the pelvis there are mildly degraded by streak artifact from left hip arthroplasty. Ur inary bladder unremarkable. No pelvic mass seen. No ascites seen. Fat-containing bilateral inguinal h ernias are present. Impression: 1.5 cm right adrenal nodule nodule. Based on Hounsfield units as detailed above, the precontrast and washout values are indicative of benign adenoma. Bilateral nonobstructing nephrolithiasis. Fat-containing bilateral inguinal hernias. Reviewed, dictated and finalized at [facility]. RVISOR DECORATING Impression: 1.5 cm right adrenal nodule nodule. Based on Hounsfield units as detailed above , the precontrast and washout values are indicative of benign adenoma. Bilateral nonobstructing nephrolithiasis. Fat-containing bilateral inguinal hernias.
[2023-03-05 09:26] LABS: Estimated Glomerular Filt Rate > 60
== END 2023-03-05 08:28 | disposition home or self-care (01) ==
PROVIDERS: PCP Clinical Nurse Specialist; Visit Provider Internal Medicine Hematology & Oncology
DX: E27.8 Other specified disorders of adrenal gland (principal); I82.4Y2 Acute embolism and thrombosis of unspecified deep veins of left proximal lower extremity; D35.01 Benign neoplasm of right adrenal gland; N20.0 Calculus of kidney; K40.20 Bilateral inguinal hernia, without obstruction or gangrene, not specified as recurrent
CPT/HCPCS: 74178; 93971; Q9967

== ENCOUNTER 2023-06-28 11:47 | Outpatient (CLI) | payer MEDICARE, SELFPAY ==
--- NOTE | ~2023-06-28 | US_ITS ---
EXAMINATION: US venous doppler [facility] DATE: 06/28/2023 13:01 INDICATION: Left lower limb pain. Acute deep vein thrombosis. TECHNIQUE: Grayscale ultrasound images without and with compression and Doppler ultrasound images of the bilateral lower extremity veins were obtained. COMPARISON: Ultrasound 03/05/2023 FINDINGS: The visualized portions of right common femoral vein, profunda (deep) femoral vein, femoral vein, pop liteal vein, peroneal veins, posterior tibial veins, and greater saphenous vein outflow are patent. The visualized portions of left common femoral vein, profunda femoral vein, popliteal vein, peroneal veins, posterior tibial veins, and greater saphenous vein outflow are patent. There is thrombus in le ft femoral vein and a left gastrocnemius vein. IMPRESSION: 1. Deep vein thrombosis again seen involving left femoral vein and a left gastrocnemius vein. Reviewed, dictated and finalized at location A. IMPRESSION: 1. Deep vein thrombosis again seen involving left femoral vein and a left john rocnemius vein.
== END 2023-06-28 11:48 | disposition home or self-care (01) ==
LOC: ANHIMG 11:50
PROVIDERS: PCP Clinical Nurse Specialist; Visit Provider Nurse Practitioner Family
DX: I82.4Y2 Acute embolism and thrombosis of unspecified deep veins of left proximal lower extremity (principal)
CPT/HCPCS: 93970

== ENCOUNTER 2023-11-08 13:31 | Outpatient (CLI) | payer MEDICARE, SELFPAY ==
--- NOTE | ~2023-11-08 | MM_ITS ---
EXAMINATION: MM screening kemal LT w enrike HISTORY: Screening mammogram TECHNIQUE: Craniocaudal and mediolateral oblique 3-D tomosynthesis images were obtained and synthetic 2-D images were generated. CAD analysis was submitted and interpreted. COMPARISON: 03/15/2022, 12/15/2020 BREAST PARENCHYMAL COMPOSITION:Not Dense. There are scattered areas of fibroglandular density. FINDINGS: Possible developing asymmetry in the outer left subareolar region. No suspicious mitral haroldo cification. IMPRESSION: Possible developing asymmetry in the outer left subareolar area. Spot compression views, and possibl y ultrasound, recommended for further evaluation. BI-RADS Category 0: Incomplete: Needs additional imaging evaluation. Reviewed, dictated and finalized at location . IMPRESSION: Possible developing asymmetry in the outer left subareolar area. Spot compress ion views, and possibly ultrasound, recommended for further evaluation. BI-RADS Category 0: Incomplete: Needs additional imaging evaluation.
== END 2023-11-08 13:32 | disposition home or self-care (01) ==
LOC: MICIMG 13:31
PROVIDERS: PCP Clinical Nurse Specialist; Visit Provider Clinical Nurse Specialist
DX: Z12.31 Encounter for screening mammogram for malignant neoplasm of breast (principal); R92.8 Other abnormal and inconclusive findings on diagnostic imaging of breast
CPT/HCPCS: 77063; 77067

== ENCOUNTER 2023-11-26 08:43 | Outpatient (CLI) | payer MEDICARE, SELFPAY ==
--- NOTE | ~2023-11-26 | MMUS_ITS ---
EXAMINATION: MM diagnostic kemal LT w enrike, US breast LT limited HISTORY: Left breast mass TECHNIQUE: Additional 3-D tomosynthesis images of the left breast were performed and synthetic 2-D im ages were generated. CAD analysis was submitted and interpreted. High resolution limited left breast ultrasound was performed. COMPARISON: 11/08/2023, 03/15/2022 BREAST PARENCHYMAL COMPOSITION:Not Dense. There are scattered areas of fibroglandular density. FINDINGS: MAMMOGRAPHIC FINDINGS: Additional views demonstrate a 9 mm mass at the outer right breast, low-density, circumscribed. ULTRASOUND: At the 3:00 position left breast, 3 cm from the nipple, there is a 1 cm circumscribed wider than tall anechoic cyst with posterior through transmission. IMPRESSION: No evidence for malignancy. 1 cm simple left breast cyst, as above. BI-RADS Category 2: Benign finding(s). Reviewed, dictated and finalized at location . IMPRESSION: No evidence for malignancy. 1 cm simple left breast cyst, as above. BI-RADS Category 2: Benign finding(s).
== END 2023-11-26 08:44 | disposition home or self-care (01) ==
LOC: MICIMG 08:43
PROVIDERS: PCP Internal Medicine; Visit Provider Clinical Nurse Specialist
DX: R92.8 Other abnormal and inconclusive findings on diagnostic imaging of breast (principal)
CPT/HCPCS: 76642; 77061; 77065; G0279

== ENCOUNTER 2023-12-28 22:02 | Emergency (ER) | payer MEDICARE, SELFPAY ==
[2023-12-28 22:02] VITALS: BP 133/80; PULSE 85; RESP 14; TEMP 36.6; O2SAT 95
[2023-12-28 22:12] VITALS: O2SAT 94
[2023-12-28 22:16] VITALS: BP 138/78; PULSE 88; RESP 17; O2SAT 95
[2023-12-28 23:03] LABS: Basophils Absolute Auto 0.1 K/mm3 (0.0-0.1); Basophils Percent Auto 0.7 % (0.2-1.2); Eosinophils Absolute Auto 0.1 K/mm3 (0-0.3); Eosinophils Percent Auto 1.2 % (0-4.4); Hematocrit 37.4 % (37.0-47.0); Hemoglobin 12.2 g/dL (12.0-15.0); Immature Granulocyte Absolute 0.12 K/mm3 (0.00-0.031); Immature Granulocyte Percent A 1.4 % (0-0.5); Lymphocytes Absolute Auto 1.72 K/mm3 (0.9-3.2); Lymphocytes Percent Auto 20.1 % (18.3-44.2); Mean Corpuscular HGB Conc 32.6 g/dl (32-36); Mean Corpuscular Hemoglobin 32.4 pg (26-34); Mean Corpuscular Volume 99.2 fl (80-100); Mean Platelet Volume 9.3 fl (7.4-10.4); Monocytes Absolute Auto 0.7 K/mm3 (0.1-0.6); Monocytes Percent Auto 7.6 % (2.6-8.5); Neutrophils Absolute Auto 5.9 K/mm3 (1.3-6.7); Platelet Count Result 233 k/mm3 (150-375); Red Blood Count 3.77 M/mm3 (4.2-5.4); Red Cell Distribution Width 12.9 % (11.5-14.5); White Blood Count 8.6 K/mm3 (4.5-10.0)
[2023-12-28 23:13] LABS: Alanine Aminotransferase 28 U/L (6-35); Albumin Level 4.4 g/dL (3.5-5.1); Alkaline Phosphatase 58 U/L (38-126); Anion Gap 6 mmol/L (4-12); Aspartate Amino Transferase 33 U/L (14-36); Bilirubin,Total 0.4 mg/dL (0.2-1.3); Blood Urea Nitrogen 15 mg/dL (7-17); Carbon Dioxide 28 mmol/L (22-30); Chloride 105 mmol/L (98-107); Estimated CRCL calculation 75 ml/min; Estimated Glomerular Filt Rate > 60; Glucose 144 mg/dL (65-110); Magnesium 2.3 mg/dL (1.6-2.3); Potassium 3.7 mmol/L (3.4-5.0); Sodium 139 mmol/L (137-145)
[2023-12-28] MEDS: ACETAMINOPHEN 500 MG TABLET 1000 MG PO (23:14)
[2023-12-28 23:27] VITALS: BP 144/80; PULSE 74; RESP 16; O2SAT 100
[2023-12-28 23:29] LABS: Add Urine Microscopic? YES; Appearance Urine Cloudy (Clear); Bacteria Urine 4+ /hpf; Bilirubin Urine Negative (Negative); Blood Urine Negative (Negative); Color Urine Yellow (Yellow); Glucose Urine UA Negative (Negative); Ketones Urine Trace mg/dL (Negative); Leukocyte Esterase Ur 2+ LEU/UL (Negative); Need Manual Microscopic Reviewed; Nitrate Urine Positive (Negative); Protein Urine 1+ mg/dL (Negative); RBC Urine 0-2 /hpf (0-2); Specific Grav Ur 1.021 (1.001-1.035); Squamous Epithelial Cell Urine Occasional /hpf (Few); Urobilinogen Urine 0.2 mg/dL (<2.0); WBC Urine 51-100 /hpf (0-3); pH Urine 5.5 (5.0-9.0)
[2023-12-29] MEDS: CEPHALEXIN 500 MG CAPSULE PO (00:13)
[2023-12-29] MEDS: levETIRAcetam 500 MG TABLET 1000 MG PO (00:14)
--- NOTE | 2023-12-29 00:16 | ED.SEIZURE ---
HPI - Seizure General Chief Complaint: Seizure Stated Complaint: seizure Time Seen by Provider: 12/28/23 22:24 Source: patient, family and EMS Mode of arrival: EMS Limitations: no limitations History of Present Illness HPI Narrative: This is a 73-year-old female, with history of seizures, brought in by EMS from home after a seizure. The patient's (at bedside) states patient was in her normal state of health, when at approximately 2100, the patient screamed and had a seizure. He states she typically has seizures in her sleep. She was seated in a recliner and did not fall or hit her head. The patient states she takes her medications regularly and has not missed any doses. She denies chest pain, cough, fevers, chills, nausea, vomiting and has no other complaints at this time. Seizure History: Yes (NOCTURNAL, ON MEDS) Related Data Home Medications Medication Instructions Recorded Confirmed calcium carbonate (Calcium 600) 600 mg PO DAILY 04/13/20 09/25/23 cholecalciferol (vitamin D3) 125 125 mcg PO DAILY 04/13/20 09/25/23 mcg (5,000 unit) capsule mecobalamin (vitamin B12) 1,000 1,000 mcg PO DAILY 04/13/20 09/25/23 mcg chewable tablet multivitamin (One-A-Day Essential 1 tablet PO DAILY 04/13/20 09/25/23 tablet) vit C,E,zinc,copper-qizbo2s 250 1 cap PO DAILY 04/13/20 09/25/23 mg-lutein 5 mg-zeaxanthin 1 mg capsule (Ocuvite Adult 50 Plus) antiarthritic combination no.2 900 900 mg PO BID 11/17/20 09/25/23 mg tablet (glucosamine-chondroitin) Allergies Allergy/AdvReac Type Severity Reaction Status Date / Time alendronate sodium Allergy Mild scalp Verified 09/25/23 10:01 [From Fosamax] burning,hairloss,acid reflux adhesive Allergy Unknown ITCHING Verified 09/25/23 10:01 cyclosporine [From Restasis] Allergy Blurry Verified 09/25/23 10:01 Vision exemestane Allergy Swelling Verified 09/25/23 10:01 ibandronate sodium Allergy Rash Verified 09/25/23 10:01 [From Boniva] melatonin Allergy Depression Verified 09/25/23 10:01 piroxicam Allergy Nose Bleed Verified 09/25/23 10:01 tamoxifen Allergy Gave leg Verified 09/25/23 10:01 blood clot zolpidem Allergy Depression Verified 09/25/23 10:01 Astrastatin Allergy Mild Nose Bleed Uncoded 09/25/23 10:01 crestor Allergy Mild Unknown Uncoded 09/25/23 10:01 Review of Systems Review of Systems: All systems reviewed & are unremarkable except as noted in HPI and below PMFSH Past Medical History Medical History Adenomatous colon polyp Breast cancer Broken leg Right 03/2020 Constipation High cholesterol Mild acid reflux Nocturnal seizures Osteopenia Seizures Vision changes Wears glasses Surgical History Surgical History H/O hernia repair 1979 H/O mastectomy Right: 06/28/2010 H/O reduction mammoplasty 11/28/2010: Left breast Liposuction, blanching machine operator removed, permanent put in Right nipple reconstruction: 06/05/2011 H/O shoulder surgery Right: 03/24/2005 History of appendectomy 1980 History of arthroscopy of left knee 09/14/1997 History of hysterectomy 1980 History of rotator cuff surgery History of tonsillectomy 1958 Hx of total mastectomy of right breast Status post left hip replacement Family History Family History Mother Cerebrovascular accident Sibling Thyroid disease Other Arthritis Social History Social History Smoking status: Never smoker Alcohol intake: current Drinks per week: 7 Substance use: never Substance use type: does not use Do You Feel Safe in your Home?: Yes Lack of Transportation: No Lack of Food: Never True Current Housing: I Have Housing Concerned About Future Housing: No Difficulty Paying Gas/Electric Bills: No Difficulty Paying for Meds: No Currently Unemployed: No Difficulty w/ Childcare or Family Care: No Living arrangements: with family Gender identity (if verbalized by the patient): Female Spiritual care concerns: No Exam Narrative: GENERAL: Well-developed, well-nourished, In no acute distress HEAD: Normocephalic, atraumatic. EYES: PERRLA and EOMI. CHEST: Clear to auscultation. No respiratory distress. No wheezes rales or rhonchi HEART: Regular rate and rhythm. No murmur heard. Normal peripheral pulses. ABDOMEN: Soft, nontender, nondistended, normal active bowel sounds. no CVA tenderness EXTREMITIES: Normal range of motion. No edema. SKIN: Warm, dry, no rash. NEURO: Alert and oriented x3. No focal deficit. Moving all 4 limbs spontaneously PSYCH: Normal mood and affect. Course Course Emergency Course: 00:05 - UA shows changes consistent with urinary tract infection. CBC unremarkable. Chemistries unremarkable. I suspect this is the cause of the patient's seizure. Will discharge with Keflex and recommendation for primary care and Neurology follow-up. I discussed the findings and recommendations with The patient and family. Discussed return and emergency precautions including signs/symptoms of acute abdomen and focal neural deficit. The patient voiced understanding and agreement with the plan. All questions answered to her satisfaction. Vital Signs Vital signs: Vital Signs Temperature 97.9 F 12/28/23 22:02 Pulse Rate 85 12/28/23 22:02 Respiratory Rate 14 12/28/23 22:02 Blood Pressure 133/80 12/28/23 22:02 Pulse Oximetry 95 12/28/23 22:02 Oxygen Delivery Room Air 12/28/23 22:02 Temperature 97.9 F 12/28/23 22:02 Pulse Rate 71 12/29/23 00:30 Respiratory Rate 16 12/29/23 00:30 Blood Pressure 144/76 H 12/29/23 00:30 Pulse Oximetry 100 12/29/23 00:30 Oxygen Delivery Room Air 12/28/23 22:12 MDM - Seizure MDM Narrative Medical decision making narrative: Plan: Labs, anti epileptics, reassess Differential Diagnosis Differential diagnosis: Likely generalized seizure, epileptic seizure and other ( medication noncompliance, metabolic abnormality, UTI, other) Lab Data 12/28/23 22:57 12/28/23 22:57 Labs: Lab Results 12/28/23 Range/Units 22:57 WBC 8.6 (4.5-10.0) K/mm3 RBC 3.77 L (4.2-5.4) M/mm3 Hgb 12.2 (12.0-15.0) g/dL Hct 37.4 (37.0-47.0) % MCV 99.2 (80-100) fl MCH 32.4 (26-34) pg MCHC 32.6 (32-36) g/dl RDW 12.9 (11.5-14.5) % Plt Count 233 (150-375) k/mm3 MPV 9.3 (7.4-10.4) fl Immature Gran % (Auto) 1.4 H (0-0.5) % Neut % (Auto) 69.0 (45.5-73.1) % Lymph % (Auto) 20.1 (18.3-44.2) % Emmet % (Auto) 7.6 (2.6-8.5) % Eos % (Auto) 1.2 (0-4.4) % Baso % (Auto) 0.7 (0.2-1.2) % Lymph # (Auto) 1.72 (0.9-3.2) K/mm3 Emmet # (Auto) 0.7 H (0.1-0.6) K/mm3 Eos # (Auto) 0.1 (0-0.3) K/mm3 Baso # (Auto) 0.1 (0.0-0.1) K/mm3 Abs Immat Gran (auto) 0.12 H (0.00-0.031) K/mm3 Absolute Neuts (auto) 5.9 (1.3-6.7) K/mm3 Absolute Nucleated RBC 0.000 (0.0-0.012) K/mm3 Nucleated RBC % 0.0 (0.0-0.2) % Sodium 139 (137-145) mmol/L Potassium 3.7 (3.4-5.0) mmol/L Chloride 105 (98-107) mmol/L Carbon Dioxide 28 (22-30) mmol/L Anion Gap 6 (4-12) mmol/L BUN 15 (7-17) mg/dL Creatinine 0.70 (0.7-1.0) mg/dL Estim Creat Clear Calc 75 ml/min Estimated GFR > 60 (59 - ) Glucose 144 H (65-110) mg/dL Calcium 9.0 (8.4-10.2) mg/dL Magnesium 2.3 (1.6-2.3) mg/dL Total Bilirubin 0.4 (0.2-1.3) mg/dL AST 33 (14-36) U/L ALT 28 (6-35) U/L Alkaline Phosphatase 58 (38-126) U/L Total Protein 8.0 (6.3-8.2) g/dL Albumin 4.4 (3.5-5.1) g/dL Urine Color Yellow (Yellow) Urine Appearance Cloudy H (Clear) Urine pH 5.5 (5.0-9.0) Ur Specific [place] 1.021 (1.001-1.035) Urine Protein 1+ H (Negative) mg/dL Urine Glucose (UA) Negative (Negative) mg/dL Urine Ketones Trace H (Negative) mg/dL Ur Blood (Man) Negative (Negative) Urine Nitrate Positive H (Negative) Urine Bilirubin Negative (Negative) Urine Urobilinogen 0.2 (<2.0) mg/dL Add Ur Microanalysis Reviewed Leukocyte Esterase Rfl 2+ H (Negative) HARVINDER/UL Urine RBC 0-2 (0-2) /hpf Urine WBC 51-100 H (0-3) /hpf Ur Squamous Epith Cells Occasional (Few) /hpf Urine Bacteria 4+ H /hpf Urine Casts 6-10 Discharge Plan Discharge Clinical Impression: Seizures, Acute UTI Patient Disposition: Home, Self-Care Condition: Stable Instructions: Antibiotic Form, Urinary Tract Infection in Women (ED), Epilepsy (ED) Additional Instructions: You were seen in the emergency department. your exam and vital signs are reassuring. Your labs are not concerning for liver kidney injury. A urinalysis shows changes consistent with urinary tract infection. I suspect this is the cause of your seizure. I recommend oral antibiotics, continued use of your seizure medications and follow-up with your primary care doctor and neurologist. If you develop weakness/ numbness, persistent vomiting, change/loss of vision/ hearing, severe abdominal pain, or if you have other emergent concerns for life, limb, or eyesight, return to the emergency department. Patient Language: Vietnamese Prescriptions: New cephalexin 500 mg capsule 500 mg PO Q12H Qty: 14 0RF No Action multivitamin [One-A-Day Essential] Tablet 1 tablet PO DAILY mecobalamin (vitamin B12) 1,000 mcg tablet,chewable 1,000 mcg PO DAILY cholecalciferol (vitamin D3) 125 mcg (5,000 unit) capsule 125 mcg PO DAILY calcium carbonate [Calcium 600] 600 mg calcium (1,500 mg) tablet 600 mg PO DAILY Ocuvite Adult 50 Plus 250-5-1 mg capsule 1 cap PO DAILY glucosamine-chondroitin 900 mg tablet 900 mg PO BID Eliquis 5 mg tablet 5 mg PO BID Qty: 180 0RF levetiracetam [Keppra] 750 mg tablet 1,000 mg PO BID Qty: 180 0RF Rx Instructions: LAST REFILL UNTIL SEEING NEUROLOGY pravastatin 40 mg tablet See Rx Instructions .ROUTE .COMPLEX Qty: 45 1RF Dose Instruction: TAKE 1 TABLET BY MOUTH EVERY OTHER DAY Rx Instructions: TAKE 1 TABLET BY MOUTH EVERY OTHER DAY Follow-up/Referrals: Jayy Morris DO [Primary Care Provider] - 1 Week Time of Disposition: 00:17
[2023-12-29 00:30] VITALS: BP 144/76; PULSE 71; RESP 16; O2SAT 100
--- NOTE | 2023-12-29 07:40 | ECG_ITS ---
Test Date: 2023-12-28 22:15:58 Measurements Intervals Rembrandt Rate: 77 P: 37 MA: 153 QRS: -20 QRSD: 109 T: 8 QT: 382 QTc: 434 Interpretive Statements SINUS RHYTHM LOW QRS VOLTAGE IN PRECORDIAL LEADS INCOMPLETE RIGHT BUNDLE BRANCH BLOCK LEFT VENTRICULAR HYPERTROPHY BORDERLINE R WAVE PROGRESSION, ANTERIOR LEADS BORDERLINE T WAVE ABNORMALITY- ANT/INF LEADS BASELINE ARTIFACT- I, II, III, AVR, AVL BORDERLINE ECG No previous ECG available for comparison Electronically Signed On 12-29-2023 11:46:21 EQUIPMENT HIRE MANAGER by Urbano Franco D.O.
== END 2023-12-29 00:30 | disposition home or self-care (01) ==
PROVIDERS: Emergency Provider Preventive Medicine Aerospace Medicine; PCP Internal Medicine
DX: R56.9 Unspecified convulsions (principal); N39.0 Urinary tract infection, site not specified; Z85.3 Personal history of malignant neoplasm of breast; Z96.642 Presence of left artificial hip joint
CPT/HCPCS: 36415; 80053; 81001; 83735; 85025; 87077; 87086; 87186; 93005; 99283; A9270

== ENCOUNTER 2024-01-28 08:29 | Outpatient (CLI) | payer MEDICARE, SELFPAY ==
--- NOTE | ~2024-01-28 | MR_ITS ---
EXAMINATION: MR brain/brain stem wo con DATE: 01/28/2024 09:11 INDICATION: Breakthrough seizure TECHNIQUE: Magnetic resonance imaging (MRI) of the brain and brainstem was performed without intraven ous contrast. Sequences included sagittal and axial T1-weighted SE, axial diffusion-weighted FS SE, a xial T2*-weighted GRE, axial T2-weighted FLAIR, and axial T2-weighted FSE. Postcontrast axial and cor onal T1-weighted SE was obtained. Apparent diffusion coefficient (ADC) maps were created. COMPARISON: None. FINDINGS: There are no areas of restricted diffusion to suggest acute infarction. No intracranial hemorrhage or abnormal intracranial mass lesion. Interval progression of now mild to moderate scattered nonspecifi c increased T2-weighted signal intensity in the cerebral white matter, predominantly involving the de ep and periventricular white matter. There are no intraparenchymal signal abnormalities seen on the o ther pulse sequences. Diffuse mild increased prominence of the perivascular spaces. The ventricles ar e symmetric and normal in size with normal variant cavum septum pellucidum and vergae. There are no a bnormal extra-axial fluid collections. Flow voids are seen in the cerebral arteries on the T2-weighte d sequences consistent with their expected patency. Visualized orbits and soft tissues are unremarkab le. Moderate mucosal thickening in the paranasal sinuses most prominent in the left maxillary and sona ateral ethmoid sinuses. IMPRESSION: 1. Interval progression of now mild to moderate nonspecific scattered cerebral white matter T2 hyperi ntensity, likely sequela of chronic small vessel ischemic disease. No acute intracranial process. Reviewed, dictated and finalized at location A. LATORY ATTORNEY IMPRESSION: 1. Interval progression of now mild to moderate nonspecific scattered cerebral white matter T2 hyperintensity, likely sequela of chronic small vessel ischemic disease. No acute intracranial process.
== END 2024-01-28 08:30 | disposition home or self-care (01) ==
PROVIDERS: PCP Internal Medicine; Visit Provider Nurse Practitioner Gerontology
DX: G40.909 Epilepsy, unspecified, not intractable, without status epilepticus (principal); R90.82 White matter disease, unspecified
CPT/HCPCS: 70551

== ENCOUNTER 2024-01-31 13:31 | Outpatient (CLI) | payer MEDICARE, SELFPAY ==
--- NOTE | ~2024-01-31 | XR_ITS ---
EXAMINATION: XR chest 2V 01/31/2024 13:52 INDICATION: Cough PROCEDURE: 2 view chest COMPARISON: 08/15/2018 and 12/11/2022 FINDINGS: The lungs are clear. The cardiomediastinal silhouette is within normal limits. There are no pleural effusions. There is no pneumothorax suspected. There is a new superior endplate compress ion fracture of T12 compared with CT dated 12/11/2022, age indeterminate. IMPRESSION: 1: NO ACUTE CARDIOPULMONARY DISEASE. 2: Age-indeterminate T12 superior endplate compression fracture, new compared with CT dated 3. Reviewed, dictated and finalized at location B. F REGISTERED NURSE IMPRESSION: 1: NO ACUTE CARDIOPULMONARY DISEASE. 2: Age-indeterminate T12 superior endplate compression fracture, new compared w ith CT dated 12/11/2022.
== END 2024-01-31 13:32 | disposition home or self-care (01) ==
LOC: GOSHIMG 13:32
PROVIDERS: PCP Internal Medicine; Visit Provider Nurse Practitioner
DX: S22.080D Wedge compression fracture of T11-T12 vertebra, subsequent encounter for fracture with routine healing (principal); X58.XXXD Exposure to other specified factors, subsequent encounter
CPT/HCPCS: 71046

== ENCOUNTER 2024-02-01 08:10 | Outpatient (CLI) | payer MEDICARE, SELFPAY ==
--- NOTE | 2024-02-04 09:52 | WPDNEUROLOGY ---
Neurology EEG Report General Information Date of Study: 02/01/24 TEST Electroencephalogram DIAGNOSIS seizure disorder CONDITION OF RECORDING bedside recording EEG NUMBER [id number] CLINICAL HISTORY History of nocturnal seizures controlled with medications. The patient is currently on levetiracetam. EEG DESCRIPTION During wakefulness the background activity consists of posterior dominant alpha rhythm at 11-12 hertz with an amplitude of 35-70 microvolts which appears very well-formed and modulated. It is reactive to eye opening. Anteriorly low amplitude mixed frequency activity was seen. There is a good anteroposterior gradient. Hyperventilation was not performed. Photic showed some work performed during which no significant abnormal background changes were seen. Patient did not progress to stage 2 sleep. IMPRESSION This is a normal EEG obtained during awake state. Since the patient has history of nocturnal seizures a sleep-deprived recording with inclusion of sleep recording may be helpful.
== END 2024-02-01 08:11 | disposition home or self-care (01) ==
LOC: ANHNEURO 08:12
PROVIDERS: PCP Internal Medicine; Visit Provider Nurse Practitioner Gerontology
DX: G40.909 Epilepsy, unspecified, not intractable, without status epilepticus (principal)
CPT/HCPCS: 95816

== ENCOUNTER 2024-03-17 13:04 | Outpatient (CLI) | payer MEDICARE, SELFPAY ==
--- NOTE | ~2024-03-17 | DEXA_ITS ---
Bone Density Report Name: PATEL ROBERTS Age: 73 Sex: Female Ethnicity: White Date of : 1950 Indication: postmenopausal; screening for osteoporosis; seizure disorder; hysterectomy; Referring Provider: JOZEF AKHTAR Study: Bone densitometry was performed. Exam Date: March 17, 2024 Accession number: [id number] Bone Density: Region BMD T-score Z-score Classification AP Spine(L1, L2, L3) 0.987 -0.3 2.0 Normal Femoral Neck (Right) 0.660 -1.7 0.3 Osteopenia Total Hip (Right) 0.860 -0.7 1.1 Normal World Health Organization criteria for BMD impression classify patients as: Normal (T-score at or above -1.0), Osteopenia (T-score between -1.0 and -2.5), or Osteoporosis (T-score at or below -2.5). 10-year Fracture Risk(1): Major Osteoporotic Fracture 11% Hip Fracture 2.1% Reported Risk Factors: [place] (), Neck BMD=0.660, BMI=30.7 (1) FRAX(R) Version 3.08. Fracture probability calculated for an untreated patient. Fracture probability may be lower if the patient has received treatment. Clinical Information Provided by Patient: Has used the following medications: Vitamin D, Calcium Has the following medical conditions: Any Seizure Disorders, Hysterectomy Patient maximum height was 69 Menopause Age: 29 No regular weight bearing exercise Drinks caffeinated beverages Onset of menses at age 13 Number of children 2 Impression: The patient has low bone mass, based on the Right Femoral Neck T-score. The patient has an estimated ten-year risk of hip fracture of 2.1% and an estimated ten-year risk of major fracture of 11%, based on the WHO FRAX algorithm. Discussion: BONE DENSITY IS LOW AT ONE OR MORE SKELETAL SITES. This patient's lowest T-score is low at one or more skeletal sites. It meets the World Health Organization's (WHO) criteria for ?low bone mass? (T-score between -1.0 and -2.5). The patient's 10-year risk of fracture as calculated by FRAX is less than the threshold where pharmacological therapy is recommended by the National Osteoporosis Foundation (NOF). However, all treatment decisions require clinical judgment and consideration of individual patient factors, including patient preferences, comorbidities, previous drug use, risk factors not captured in the FRAX model (e.g., frailty, falls, vitamin D deficiency, increased bone turnover, interval significant decline in bone density) and possible under or overestimation of fracture risk by FRAX. The patient should follow a healthful lifestyle (good nutrition with adequate calcium and vitamin D, and appropriate weight-bearing exercise). Follow-Up: Consider repeating this study in 2 to 3 years to reassess this patient's status, or sooner if there is some new clinical indication. Reported by: NICOLE on 03/17/2024 1:33:00 PM. Reviewed, dictated and finalized at location AJeanette BRAGA
--- OUTSIDE RECORDS SUMMARY | 2024-03-17 13:45 | XMS_ITS | Encounter Summary ---
Author Organization [facility] Address [address] [place] [address] Care Team Providers Care Petroleum Engineering Teacher Name Role Phone Jayy Morris DO Primary Care Provider Encounter Details Date Type Department Care Team (Late st Contact Info) Description 03/13/2024 External Device Data STL ABSTRACTION Provider, Abstract NO ADDRESS ON FILE Social History Tobacco Use Types Packs/Day Years Used Date Smoking Tobacco: Never Smokeless Tobacco: Never Alcohol Use Standard Drinks/Week Comments Not Currently 0 (1 standard drink = 0.6 oz pur e alcohol) Comments Unknown Sex and Gender Information Value Date Recorded Sex Assigned at Not on file Legal Sex Female 4:23 AM WALL TAPER Gender Identity Not on file Sexual Orientation Not on file documented as of this encounter Plan of Treatment Upcoming Encounters Date Type Department Care Team (Late st Contact Info) Description 03/20/2024 1:00 PM WALL TAPER Office Visit [facility] Oncology and Hematology - Mehul [address] [facility] [address] [place] [address] Pierre Andres MD [address] [facility] [address] [place] [address] documented as of this encounter Visit Diagnoses Not on filedocumented in this encounter Care Teams Petroleum Engineering Teacher Relationship Specialty Start Date End Date Jayy Morris DO [address] [facility] [address] [place] [address] PCP - General Internal Medicine 01/02/23 documented as of this encounter
--- OUTSIDE RECORDS SUMMARY | 2024-03-17 13:45 | XMS_ITS | Encounter Summary ---
Author Organization [facility] Address [address] [place] [address] Care Team Providers Care Zinc Miner Blasting Name Role Phone Jayy Morris DO Primary Care Provider Encounter Details Date Type Department Care Team (Late Contact Info) Description 12/20/2000 Outpatient Historical Division of Neurology 1 [facility], [address] [address] Balaji Arciniega MD [address] [facility] [address] [place] [address] Social History Tobacco Use Types Packs/Day Years Used Date Smoking Tobacco: Never Assessed Comments Unknown Sex and Gender Information Value Date Recorded Sex Assigned at Not on file Legal Sex Female 4:23 AM RESISTANCE WELDER Gender Identity Not on file Sexual Orientation Not on file documented as of this encounter Plan of Treatment Upcoming Encounters Date Type Department Care Team (Late st Contact Info) Description 03/20/2024 1:00 PM RESISTANCE WELDER Office Visit [facility] Oncology and Hematology - Mehul [address] [facility] [address] [place] [address] Pierre Andres MD [address] [facility] [address] [place] [address] documented as of this encounter Visit Diagnoses Not on filedocumented in this encounter Care Teams Zinc Miner Blasting Relationship Specialty Start Date End Date Jayy Morris DO [address] [facility] [address] [place] [address] PCP - General Internal Medicine 01/02/23 documented as of this encounter
--- OUTSIDE RECORDS SUMMARY | 2024-03-17 13:45 | XMS_ITS | Encounter Summary ---
Author Organization [facility] Address [address] [place] [address] Care Team Providers Care Networking Technology Instructor Name Role Phone Jayy Morris DO Primary Care Provider Encounter Details Date Type Department Care Team (Late Contact Info) Description 05/10/2006 Outpatient Historical Division of Neurology [address] [facility], [address] [address] Balaji Arciniega MD [address] [facility] [address] [place] [address] Social History Tobacco Use Types Packs/Day Years Used Date Smoking Tobacco: Never Assessed Comments Unknown Sex and Gender Information Value Date Recorded Sex Assigned at Not on file Legal Sex Female 4:23 AM CUT LACE MACHINE OPERATOR Gender Identity Not on file Sexual Orientation Not on file documented as of this encounter Plan of Treatment Upcoming Encounters Date Type Department Care Team (Late st Contact Info) Description 03/20/2024 1:00 PM CUT LACE MACHINE OPERATOR Office Visit [facility] Oncology and Hematology - Mehul [address] [facility] [address] [place] [address] Pierre Andres MD [address] [facility] [address] [place] [address] documented as of this encounter Visit Diagnoses Not on filedocumented in this encounter Care Teams Networking Technology Instructor Relationship Specialty Start Date End Date Jayy Morris DO [address] [facility] [address] [place] [address] PCP - General Internal Medicine 01/02/23 documented as of this encounter
--- OUTSIDE RECORDS SUMMARY | 2024-03-17 13:45 | XMS_ITS | Encounter Summary ---
Author Organization [facility] Address [address] [place] [address] Care Team Providers Care Insurance Administrator Name Role Phone Jayy Morris DO Primary Care Provider Encounter Details Date Type Department Care Team (Late Contact Info) Description 05/04/2003 Outpatient Historical Division of Neurology 1 [facility], [address] [address] Balaji Arciniega MD [address] [facility] [address] [place] [address] Social History Tobacco Use Types Packs/Day Years Used Date Smoking Tobacco: Never Assessed Comments Unknown Sex and Gender Information Value Date Recorded Sex Assigned at Not on file Legal Sex Female 4:23 AM REMEDIAL MASSEUR Gender Identity Not on file Sexual Orientation Not on file documented as of this encounter Plan of Treatment Upcoming Encounters Date Type Department Care Team (Late st Contact Info) Description 03/20/2024 1:00 PM REMEDIAL MASSEUR Office Visit [facility] Oncology and Hematology - Mehul [address] [facility] [address] [place] [address] Pierre Andres MD [address] [facility] [address] [place] [address] documented as of this encounter Visit Diagnoses Not on filedocumented in this encounter Care Teams Insurance Administrator Relationship Specialty Start Date End Date Jayy Morris DO [address] [facility] [address] [place] [address] PCP - General Internal Medicine 01/02/23 documented as of this encounter
--- OUTSIDE RECORDS SUMMARY | 2024-03-17 13:45 | XMS_ITS | Encounter Summary ---
Author Organization [facility] Address [address] [place] [address] Care Team Providers Care Industrial Locomotive Operator Name Role Phone Jayy Morris DO Primary Care Provider Encounter Details Date Type Department Care Team (Late Contact Info) Description 10/19/2005 Outpatient Historical Division of Neurology 1 [facility] [address] [address] Balaji Arciniega MD [address] [facility] [address] [place] [address] Social History Tobacco Use Types Packs/Day Years Used Date Smoking Tobacco: Never Assessed Comments Unknown Sex and Gender Information Value Date Recorded Sex Assigned at Not on file Legal Sex Female 4:23 AM INTERNET DATABASE SPECIALIST Gender Identity Not on file Sexual Orientation Not on file documented as of this encounter Plan of Treatment Upcoming Encounters Date Type Department Care Team (Late st Contact Info) Description 03/20/2024 1:00 PM INTERNET DATABASE SPECIALIST Office Visit [facility] Oncology and Hematology - Mehul [address] [facility] [address] [place] [address] Pierre Andres MD [address] [facility] [address] [place] [address] documented as of this encounter Visit Diagnoses Not on filedocumented in this encounter Care Teams Industrial Locomotive Operator Relationship Specialty Start Date End Date Jayy Morris DO [address] [facility] [address] [place] [address] PCP - General Internal Medicine 01/02/23 documented as of this encounter
--- OUTSIDE RECORDS SUMMARY | 2024-03-17 13:45 | XMS_ITS | Encounter Summary ---
Author Organization [facility] Address [address] [place] [address] Care Team Providers Care Veterinarian Laboratory Animal Care Name Role Phone Jayy Morris DO Primary Care Provider Encounter Details Date Type Department Care Team (Late Contact Info) Description 01/24/2002 Outpatient Historical Division of Neurology 1 [facility], [address] [address] Balaji Arciniega MD [address] [facility] [address] [place] [address] Social History Tobacco Use Types Packs/Day Years Used Date Smoking Tobacco: Never Assessed Comments Unknown Sex and Gender Information Value Date Recorded Sex Assigned at Not on file Legal Sex Female 4:23 AM COLLAR SEWER Gender Identity Not on file Sexual Orientation Not on file documented as of this encounter Plan of Treatment Upcoming Encounters Date Type Department Care Team (Late st Contact Info) Description 03/20/2024 1:00 PM COLLAR SEWER Office Visit [facility] Oncology and Hematology - Mehul [address] [facility] [address] [place] [address] Pierre Andres MD [address] [facility] [address] [place] [address] documented as of this encounter Visit Diagnoses Not on filedocumented in this encounter Care Teams Veterinarian Laboratory Animal Care Relationship Specialty Start Date End Date Jayy Morris DO [address] [facility] [address] [place] [address] PCP - General Internal Medicine 01/02/23 documented as of this encounter
--- OUTSIDE RECORDS SUMMARY | 2024-03-17 13:45 | XMS_ITS | Encounter Summary ---
Author Organization [facility] Address [address] [place] [address] Care Team Providers Care Automotive Maintenance Technician Name Role Phone Jayy Morris DO Primary Care Provider Encounter Details Date Type Department Care Team (Late Contact Info) Description 02/06/2000 Outpatient Historical Division of Neurology [address] [facility], [address] [address] Balaji Arciniega MD [address] [facility] [address] [place] [address] Social History Tobacco Use Types Packs/Day Years Used Date Smoking Tobacco: Never Assessed Comments Unknown Sex and Gender Information Value Date Recorded Sex Assigned at Not on file Legal Sex Female 4:23 AM GENERAL PASSENGER AGENT Gender Identity Not on file Sexual Orientation Not on file documented as of this encounter Plan of Treatment Upcoming Encounters Date Type Department Care Team (Late Contact Info) Description 03/20/2024 1:00 PM GENERAL PASSENGER AGENT Office Visit [facility] Oncology and Hematology - Mehul [address] [facility] [address] [place] [address] Pierre Andres MD [address] [facility] [address] [place] [address] documented as of this encounter Visit Diagnoses Not on filedocumented in this encounter Care Teams Automotive Maintenance Technician Relationship Specialty Start Date End Date Jayy Morris DO [address] [facility] [address] [place] [address] PCP - General Internal Medicine 01/02/23 documented as of this encounter
--- OUTSIDE RECORDS SUMMARY | 2024-03-17 13:45 | XMS_ITS | Clinical Summary ---
Author Organization [facility] Administrative Offices Address [address] [place] [id number] Care Team Providers Care Shine Worker Name Role Phone Jayy Morris DO Primary Care Provider Allergies Active Allergy Reactions Criticality Noted Date Comments Adhesive Tape-Silicones Other (See Comments) Alendronate Other (See Comments) Medium 06/01/2021 Apixaban Diarrhea Low 06/01/2021 Atorvastatin Muscle Pain Low 09/20/2022 Cyclosporine Other (See Comments) 01/02/2023 Exemestane Muscle Pain,Swelling Medium 06/01/2021 Ibandronate Other (See Comments) 09/21/2022 Ibandronate Sodium Other (See Comments) 023 Melatonin Other (See Comments) 09/21/2022 Meloxicam Other (See Comments) Low 06/16/2021 Nose bleed Piroxicam Other (See Comments) High 09/20/2022 Reaction: nose bleeds, Rosuvastatin Other (See Comments) Low 06/01/2021 Stopped 2010 Tamoxifen Other (See Comments) Low 11/15/2016 Blood clots Zolpidem Other (See Comments) High 09/20/2022 Reaction: depression, Medications acetaminophen (TYLENOL) 500 mg Capsule Take 1,000 mg by mouth every 8 hours. 3 Active aspirin (ECOTRIN EC) 81 mg Tablet, Delayed Release (E.C.) Take 81 mg by mouth 2 times daily. 3 Active calcium carbonate + vitamin D (CALTRATE+D) 600 mg-10 mcg (400 unit) Tablet Take 1 Tablet by mouth daily at bedtime. 3 Active estradioL (ESTRACE) 0.01% (0.1 mg/g) vaginal cream 3 Active levETIRAcetam (KEPPRA) 1,000 mg tablet Take 1 Tablet by mouth 2 times daily. 3 Active omeprazole (PriLOSEC) 20 mg Capsule, Delayed Release(E.C.) TAKE 1 CAPSULE BY MOUTH DAILY BEFORE BREAKFAST 1 Active pravastatin (PRAVACHOL) 40 mg tablet TAKE 1 TABLET BY MOUTH EVERY OTHER DAY 0 Active multivitamin (DAILY-KENTRELL) tablet Take 1 Tablet by mouth daily. Active cyanocobalamin 1,000 mcg Tablet Take 1,000 mcg by mouth daily. Active cranberry-vitam in C-mannose 250-30-50 mg Tablet, Chewable Take by mouth. Activ e apixaban (Eliquis) 5 mg tablet Take 1 tablet by mouth twice daily. 180 Tablet 3 4 Active Active Problems No known active problems Encounters Date Type Department Care Team Description 03/13/2024 External Device Data [facility] ABSTRACTION Provider, Abstract 12/25/2023 External Device Data [facility] ABSTRACTION Provider, Abstract from Last 3 Months Family History Relation Name Status Comments Brother Alive Father Mother Sister 1 Alive Sister 2 Alive Sister 3 Alive Sister 4 Alive Sister 5 Alive Son 1 Alive Son 2 Alive Social History Tobacco Use Types Packs/Day Years Used Date Smoking Tobacco: Never Smokeless Tobacco: Never Tobacco Cessation:Counseling Given: Not Answered Alcohol Use Standard Drinks/Week Comments Not Currently 0 (1 standard drink = 0.6 oz pur e alcohol) Comments Unknown Sex and Gender Information Value Date Recorded Sex Assigned at Not on file Legal Sex Female 4:23 AM LUMITE INJECTOR Gender Identity Not on file Sexual Orientation Not on file Last Filed Vital Signs Vital Sign Reading Time Taken Comments Blood Pressure 131/74 03/15/2023 1:00 PM LUMITE INJECTOR Pulse 72 03/15/2023 1:00 PM LUMITE INJECTOR Temperature 35.8 ??C (96.5 ??F) 03/15/2023 1:00 PM CS T Respiratory Rate 10 03/15/2023 1:00 PM LUMITE INJECTOR Oxygen Saturation 93% 03/15/2023 1:00 PM LUMITE INJECTOR Inhaled Oxygen Concentration - - Weight 91.6 kg (202 lb) 03/15/2023 1:00 PM LUMITE INJECTOR Height 175.3 cm (5' 9 ) 01/02/2023 2:36 PM LUMITE INJECTOR Body Mass Index 29.83 01/02/2023 2:36 PM LUMITE INJECTOR Plan of Treatment Upcoming Encounters Date Type Department Care Team (Late st Contact Info) Description 03/20/2024 1:00 PM LUMITE INJECTOR Office Visit [facility] Oncology and Hematology - Mehul [address] [facility] [address] [place] [address] Pierre Andres MD [address] [facility] [address] [place] [address] Health Maintenance Due Date Last Done Comments COLORECTAL SCREENING 1995 Colorectal Cancer Screening 1995 FIT-DNA Q 3 years 1995 FIT/FOBT Q 1 year 1995 Flex Sig/CT Colonography Q 5 years 1995 ZOSTER VACCINE (1 of 2) 2000 BREAST CANCER SCREENING 08/04/2020 08/05/19 20, 07/25/2018, 06/25/2017, Additional history exists DTAP/TDAP/TD VACCINES (2 - T d or Tdap) 11/27/2020 11/27/2010 INFLUENZA VACCINE (#1) 2023 , 12/15/2014, 12/02/2013 COVID-19 Vaccine (3 - 2023-2 5 season) 2023 05/13/2020, 04/16/2020 RSV VACCINE (60+ or ) (1 - 1-dose 75+ series) 2025 OSTEOPOROSIS SCREENING Completed 07/16/2015, 2012 PNEUMOCOCCAL VACCINE 65+ YEARS Completed 04/05/2016 , 09/07/2015 Insurance [employer] PPO [facility] Care Teams Shine Worker Relationship Specialty Start Date End Date Jayy Morris DO [address] [facility] [address] [place] [address] PCP - General Internal Medicine 01/02/23
--- OUTSIDE RECORDS SUMMARY | 2024-03-17 13:45 | XMS_ITS | Clinical Summary ---
Author Organization [facility] Address [address] [place] [address] Care Team Providers Care Scallop Raker Name Role Phone Aubree Burch MD Unavailable [phone] Roddy Junior MD PhD Unavailable [phone] Ester Carranza MD Unavailable [phone] Cristian Barrera MD Unavailable [phone] Jayy Morris DO Primary Care Provider [phone] Allergies Active Allergy Reactions Criticality Noted Date Comments Adhesive Tape-Silicones Other (See comments) Low Atorvastatin Rosuvastatin Other (See comments) Low 06/01/2021 Stopped 2009 Cyclosporine Apixaban Diarrhea Low 06/01/2021 Exemestane Muscle pain,Swelling Medium 06/01/2021 Alendronate Urticaria Medium 06/01/2021 Ibandronate Melatonin Other (See comments) Low 09/21/2022 Meloxicam Other (See comments) Low 06/16/2021 Nose bleed Piroxicam Other (See comments) High Reaction: nose bleeds, Tamoxifen Other (See comments) Low 11/15/2016 Blood clots Zolpidem Other (See comments) High Reaction: depression, Medications cholecalciferol (VITAMIN D-3) 5,000 unit tablet Take 1 tablet (5,000 Units total) by mouth daily Active pravastatin (PRAVACHOL) 40 mg tablet TAKE 1 TABLET BY MOUTH EVERY OTHER DAY 45 tablet 3 0 Active Additional Information Patient taking differently: 40 mg oral Every 48 hours, Indications: hyperlipidemia, Informant: Self, Reported on 02/11/2024 omeprazole (PriLOSEC) 20 mg capsule TAKE 1 CAPSULE BY MOUTH DAILY BEFORE BREAKFAST 90 capsule 1 Active Additional Information Patient not taking.Informant: Self, Reported on 02/11/2024 amitriptyline (ELAVIL) 10 mg tablet TAKE 1 TABLET BY MOUTH EVERY DAY AT BEDTIME FOR 90 DAYS 3 Active estradioL (ESTRACE) 0.01 % (0.1 mg/gram) vaginal cream 3 Active calcium carbonate-vitam in D3 (Calcium 600 + D,3,) 1500 mg (600 mg elemental) -400 units per tabletIndicatio ns:Prevention of Vitamin D Deficiency Take 1 tablet by mouth nightly 3 Active acetaminophen 500 mg capsuleIndicati ons:Pain Take 2 capsules (1,000 mg total) by mouth every 8 (eight) hours 90 tablet 3 Active Additional Information Patient not taking.Reported on 02/11/2024 senna-docusate (PERICOLACE) 8.6-50 mgIndications:c onstipation Take 2 tablets by mouth 2 (two) times a day 80 tablet 3 Active Additional Information Patient not taking.Reported on 02/11/2024 aspirin 81 mg enteric coated tabletIndicatio ns:Deep Vein Thrombosis Prevention Take 1 tablet (81 mg total) by mouth 2 (two) times a day 60 tablet 3 Active traMADoL (ULTRAM) 50 mg tabletIndicatio ns:Pain Take 1 tablet (50 mg total) by mouth every 8 (eight) hours as needed for pain for up to 7 days 21 tablet 3 Active Additional Information Patient not taking.Reported on 02/11/2024 apixaban (Eliquis) 5 mg tabletIndicatio ns:Venous Thrombosis Take 10 mg BID x 7 days, then drop to 5 mg BID, follow up with PCP for continuation of care 88 tablet 3 Active cranberry-vitam in C-mannose 250-30-50 mg tablet,chewable Take by mouth Active cyanocobalamin (Vitamin B-12) 1,000 mcg tablet Take 1 tablet (1,000 mcg total) by mouth daily Active multivitamin tablet Take 1 tablet by mouth daily Active levETIRAcetam (KEPPRA) 1,000 mg tablet TAKE 1 TABLET TWICE A DAY 180 tablet 3 4 Active levETIRAcetam (KEPPRA) 250 mg tablet Take 1 tablet (250 mg total) by mouth 2 (two) times a day Take with the 1000mg tablet twice daily 180 tablet 1 4 Active Active Problems Problem Noted Date Diagnosed Date Tremors of nervous system 05/23/2023 Osteoarthritis of left hip, unspecified osteoart hritis type 09/19/2022 Primary osteoarthritis of left hip 08/08/2022 Dizziness 01/22/2018 Obesity due to excess calories with serious dmitriy rbidity 05/22/2017 Assessment & Plan (05/28/2018 10:45 AM CDT): increase exercise, limit carbohydrates BMI Follow-up includes: exercise counseling. Gastroesophageal reflux disease 04/05/2016 Overview (05/26/2016): GERD (gastroesophageal reflux disease) Assessment & Plan (05/28/2018 10:45 AM CDT): On PPI Assessment & Plan (05/22/2017 11:19 AM CDT): On PPI Malignant neoplasm of right female breast 2016 Overview (05/22/2017): R mastectomy '11 Onc Li Assessment & Plan (05/28/2018 10:37 AM CDT): Prior R mastectomy Recent mammo benign Assessment & Plan (05/22/2017 11:19 AM CDT): s/p R mastectomy '11 Recent imaging benign ABDIRIZAK Restless legs syndrome 05/29/2014 Overview (05/26/2016): RLS (restless legs syndrome) Insomnia 07/05/2013 Overview (05/26/2016): Insomnia Hyperlipidemia 11/26/2012 Overview (05/26/2016): Hyperlipidemia Seizure disorder 11/26/2012 Overview (05/22/2017): Neuro Aquilino Assessment & Plan (05/28/2018 10:38 AM CDT): No recurrent seizures on keppra Assessment & Plan (05/22/2017 11:18 AM CDT): Controlled with keppra f/u Neuro Resolved Problems Problem Noted Date Diagnosed Date Resolved Date Benign paroxysmal positional vertigo of left ear 02/22/2018 05/04/2018 Overview (02/22/2018): Starting in December - Saw neuro and got MRI (normal) Dizzy as well To ER for same on 02/06/18 and got steroid pack and antibiotic ear drops Also sudafed No fever No history of sinus problems Assessment & Plan (02/22/2018 1:07 PM SCALLOPER): MRI did not show any significant problems Got some temporary relief with steroids and antibiotic drops Can use Meclizine up to 3 times per day on bad days Start regular use of claritin and flonase Will give order for vestibular therapy - PT See ENT if not better. Disorder of both eustachian tubes 02/22/2018 05/04/2018 Overview (02/22/2018): Left ear has been bothering her since December Assessment & Plan (02/22/2018 1:08 PM SCALLOPER): Use claritin 10mg daily Use flonase 2 sprays per nostril daily Personal history of breast cancer 11/15/2016 04/19/2017 Breast mass 11/15/2016 04/19/2017 Osteopenia 11/28/2011 05/22/2017 Overview (05/26/2016): Osteopenia Encounters Date Type Department Care Team Description 02/15/2024 Orders Only [facility] Neurology [address] [place] [phone] Kinsey Candelario NP Seizure disorder (CMS/HCC) (HCC) 02/11/2024 10:00 AM SCALLOPER Office Visit [facility] Medical [facility] Neurology [facility] [address] [place] [phone] Kinsey Candelario NP Seizure disorder (CMS/HCC) (HCC) (Primary Dx) 02/11/2024 Orders Only [facility] Neurology [facility] [address] [place] [phone] Kinsey Candelario NP Seizure disorder (CMS/HCC) (HCC) 01/01/2024 Telephone [facility] Neurology [facility] [address] [place] [phone] Kinsey Candelario NP Had a seizure from Last 3 Months Immunizations Name Administration Dates Next Due Influenza, Quad, Adjuvantate d, Intramuscular 12/05/2019 Influenza, Quadrivalent, Spl it, Preservative Free, Intradermal 12/15/2014 Influenza, Trivalent, IM (MDV) 12/02/2013,2013 Influenza, Unspecified 05/28/2018(Deferr ed: Patient decision - declined) Moderna SARS-CoV-2 Monovalen t Vaccination (12+ YRS) 05/13/2020,04/16/2020 Pneumococcal Conjugate PCV 13 09/07/2015 Pneumococcal Polysaccharide PPV23 04/05/2016 Tdap 11/27/2010 Surgical History Surgery Date Site/Laterality Comments OTHER SURGICAL HISTORY Ulnar N. entrapment TONSILLECTOMY Tonsillectomy SHOULDER SURGERY Shoulder surgery BREAST BIOPSY REDUCTION MAMMAPLASTY MASTECTOMY Right APPENDECTOMY HERNIA REPAIR 02/19/1979 - 02/19/1980 HYSTERECTOMY 02/19/1979 - 02/19/1980 SHIRA-BSO for fibroids KNEE ARTHROSCOPY Left over 10+ yrs (07/31/22 reported) Medical History Medical History Date Comments Acid reflux 1973 High cholesterol 2006 Seizures (HCC) 1973 Nocturnal Seizu res Breast cancer (HCC) 2010 Right side Insomnia GERD (gastroesophageal reflux disease) Dizziness Osteoporosis 2020 Kidney stone 2003 TMJ (dislocation of temporomandibular joint) LEFT Family History Medical History Relation Name Comments Arthritis Father Morro Ethier Heart failure Father Morro Ethier heart failu re; /Heart Failure; Cancer Father's Sister 3 Rita Wall cancer; Breast cancer Father's Sister 4 Cancer, b reast; Cause of : Cancer, breast Hypertension Mother Mom Hypertension; Other Mother Mom alive and well; Skin cancer Mother Mom Cancer -skin; Breast cancer Mother's Sister Other Other Family history of Descent - Central/Eastern [place]; Hypertension Sister 2 Pat hypertension; Hypertension Sister 3 Fabiana Hypertension; Colon cancer Neg Hx Ovarian cancer Neg Hx Uterine cancer Neg Hx Relation Name Status Comments Father Morro Ethier Alive Father's Sister 1 Alive Father's Sister 2 (Age 85) Father's Sister 3 Rita Wall Father's Sister 4 Mother Mom Alive Mother's Sister Other Sister 1 Alive Sister 2 Pat Sister 3 Fabiana Social History Tobacco Use Types Packs/Day Years Used Date Smoking Tobacco: Never Smokeless Tobacco: Never Tobacco Cessation:Counseling Given: Not Answered Alcohol Use Standard Drinks/Week Comments Yes 0 (1 standard drink = 0.6 oz pur e alcohol) AUDIT-C Answer Date Recorded Q1: How often do you have a drink containing alcohol? 4 or more times a week 09/19/2022 Q2: How many drinks containi ng alcohol do you have on a typical day when you are drinking? 1 or 2 Q3: How often do you have si x or more drinks on one occasion? Never 09/19/2022 PHQ-2 Answer Date Recorded PHQ-2 Score 0 10/09/2018 Personal Safety Answer Date Recorded Have you ever been in or are you currently in a harmful physical or emotional relationship or is someone making you feel afraid or unsafe? Denies 09/19/2022 Comments No Sex and Gender Information Value Date Recorded Sex Assigned at Not on file Legal Sex Female 6:23 PM SCALLOPER Gender Identity Female 06/10/2020 8:32 AM CDT Sexual Orientation Not on file Obstetrics History Para Term AB IAB SAB Ectopic Multiple Livin g Live Births 2 2 2 2 Date Outcome GA Total Labor Labor/2nd/3rd Weight Sex Type Anes PTL Macey A1 A5 Name Clin 1975 Para 4.238 kg (9 lb 5.5 oz) Vag-Sp ont 1978 Para 3.685 kg (8 lb 2 oz) Vag-Sp ont Last Filed Vital Signs Vital Sign Reading Time Taken Comments Blood Pressure 136/78 02/11/2024 9:55 AM SCALLOPER Pulse 64 02/11/2024 9:55 AM SCALLOPER Temperature 36.7 ??C (98.1 ??F) 09/20/2022 8:47 AM CD T Respiratory Rate 16 09/20/2022 8:47 AM CDT Oxygen Saturation 94% 05/23/2023 2:00 PM CDT Inhaled Oxygen Concentration - - Weight 91.4 kg (201 lb 6.4 oz) 02/11/2024 9:55 A M SCALLOPER Height 175.3 cm (5' 9 ) 02/11/2024 9:55 AM SCALLOPER Body Mass Index 29.74 02/11/2024 9:55 AM SCALLOPER Plan of Treatment Health Maintenance Due Date Last Done Comments Hepatitis C Screening 1950 Hepatitis B Screening 1968 Zoster Vaccine (1 of 2) 2000 Osteoporosis Screening-Bone Density Scan 07/15/2017 07/16/2015, 07/16/2015, 12/13/2012 Well Visit 65+ 05/29/2019 05/28/2018, 06/2017, 05/22/2017 Breast Cancer Screening-Mammogram 07/26/2019 019, 06/25/2017 Depression Screening 08/01/2019 07/31/2018, 05/28/2018, 05/22/2017, Additional history exists DTaP/Tdap/Td Vaccine (2 - Td or Tdap) 11/27/2020 11/27/2010 Fall Risk Assessment 09/21/2023 09/20/2022, 07/31/2018, 05/28/2018, Additional history exists Covid-19 Vaccine (3 - 2023-2 5 season) 2023 05/13/2020, 04/16/2020 Influenza Vaccine (#1) 2023 , 12/15/2014, 12/02/2013, Additional history exists Colon Cancer Screening-Colonoscopy 07/24/2024 07/24/2014 Colon Cancer Screening-CT Colonography Discontinued 07/24/2014 Colon Cancer Screening-DNA Stool Discontinued 07/25/19 15 Colon Cancer Screening-FIT Discontinued 07/24/2014 Colon Cancer Screening-Sigmoidoscopy Discontinued 07/24/2014 Pneumococcal vaccine 65+ Completed 04/05/2016, 07/1 10/2015 Medical Devices Implanted Type Area Telecommunications Support Device Identifier Shelf Expiration Date Model / Serial / Lot [employer] Bi Mentum 53mm Press Fit Femoral Proximal Cup Acetabular [id number] - [id number] Implanted:Qty: 1 on 09/19/2022 by Gamaliel Sampson MD at [facility] Left: Hip [employer] 10/19/2024 [id number] / / [id number] [employer] Liner Acet Hip Size 28 Poly Bi Mentum Altrx 53mm [id number] - [id number] Implanted:Qty: 1 on 09/19/2022 by Gamaliel Sampson MD at [facility] Left: Hip [employer] 11/18/2026 [id number] / / [id number] [employer] Actis Collar Hip 8 Standard Offset Stem Femoral [id number] - [id number] Implanted:Qty: 1 on 09/19/2022 by Gamaliel Sampson MD at [facility] Left: Hip [employer] 10/20/2031 [id number] / / [id number] [employer] Articul/Roman 28mm Cementless Hip +1.5mm 12/14 Taper Head Femoral Latex Free [id number] - [id number] Implanted:Qty: 1 on 09/19/2022 by Gamaliel Sampson MD at [facility] Left: Hip [employer] 07/20/2027 [id number] / / [id number] Procedures Procedure Name Priority Date/Time Associated Diagnosis Comments SCREENING MAMMOGRAM LEFT W AUDI UNILATERAL ONLY Schedule Routine, Read Routine (OP Routine) 07/25/2018 10:59 AM CDT Encounter for screening mammogram for malignant neoplasm of breast DEXA AXIAL SKELETON BONE DENSITY 1 OR MORE SITES Routine 07/16/2015 12:17 PM CDT HM COLONOSCOPY Routine 07/24/2014 from Last 3 Months or Most Recently Relevant to Health Maintenance Results * Screening Mammogram Left W Audi Unilateral Only (07/25/2018 10:59 AM CDT) Anatomical Region Laterality Modality Breast Left Mammography Narrative 07/29/2018 7:56 AM CDT Screening Mammogram Left W Audi Unilateral Only: 07/25/18 Clinical: Encounter for screening mammogram for malignant neoplasm of breast. ?? Prior Study Comparisons: Comparison was made to the prior available relevant studies at the time of interpretation. Findings: No significant masses, malignant type calcifications, skin thickening, nipple retraction, or significant lymphadenopathy is noted in this breast. ??The CAD review showed no significant findings. The breast is heterogeneously dense, which may obscure small masses. The patient will be notified of results by letter. Impression: BI-RADS?? ATLAS category (left): 1 Negative ?? There is no mammographic evidence of malignancy. Routine Screening Mammogram in 1 Yr is recommended for left Overall Assessment: 1 - Negative Aubree Burch MD IMG MAMMO PROCEDURES F inal Result * Dexa Axial Skeleton Bone Density 1 or 2 Site (07/16/2015 12:17 PM CDT) Anatomical Region Laterality Modality Body N/A Radiographic Sahra ging 07/16/2015 12:1 7 PM CDT Narrative 07/16/2015 1:22 PM CDT EXAM: ??Bone mineral density [facility]. HISTORY: ??Status post hysterectomy at the age of 29. Patient currently taking calcium and vitamin D. DXA BMD was done at [facility] on a [place] CI. Precision testing at this site has resulted in a least significant change of: Lumbar spine 0.035 g/sq cm Hip 0.025 g/sq cm BMD L1-L4 is 0.996 g/sq cm corresponding to a T score of -0.5. BMD left femoral neck is 0.771 g/sq cm corresponding to a T score of -0.7. BMD total left hip is 0.922 g/sq cm corresponding to a T score of -0.2. COMPARISON: ??When comparison is made with prior bone densitometry dated 12/13/2012, there has been 4.6% interval increase in total bone mineral density of the lumbar spine and no significant interval change in total bone mineral density of the left hip. IMPRESSION: BMD near the young adult mean. Based on BMD alone, there is no increased risk of fragility fracture. If followup is to be done, for technical reasons, it should be performed on this same machine. Electronically signed by: Vanessa Argueta M.D. Radiologist: VANESSA ARGUETA ??LyndseyD. ?? Attending: ??MIKEY MALLORY M.D. Requesting: MIKEY MALLORY M.D. Requesting Fax: ?? Requesting ID: [id number] Attending Fax: ?? Attending ID: ?? [id number] Completed Time: ?? 07/16/2015 12:17 AM Dictated Time: ?07/16/2015 1:22 PM Transcribed Time: 07/16/2015 1:22 PM Signed by: ?VANESSA ARGUETA ?? Jessica on 07/16/2015 1:22 PM Report To 1 ID: Report To 1 Name: , Report To 1 FAX: Report To 2 ID: Report To 2 Name: , Report To 2 FAX: Report To 3 ID: Report To 3 Name: , Report To 3 FAX: NextGen Order #: Procedure Note Provider, MD Colt - 06/21/2016 EXAM: Bone mineral density [facility]. HISTORY: Status post hysterectomy at the age of 29. Patient currently taking calcium and vitamin D. DXA BMD was done at [facility] on a [employer] CI. Precision testing at this site has resulted in a least significant change of: Lumbar spine 0.035 g/sq cm Hip 0.025 g/sq cm BMD L1-L4 is 0.996 g/sq cm corresponding to a T score of -0.5. BMD left femoral neck is 0.771 g/sq cm corresponding to a T score of -0.7. BMD total left hip is 0.922 g/sq cm corresponding to a T score of -0.2. COMPARISON: When comparison is made with prior bone densitometry dated 12/13/2012, there has been 4.6% interval increase in total bone mineral density of the lumbar spine and no significant interval change in total bone mineral density of the left hip. IMPRESSION: BMD near the young adult mean. Based on BMD alone, there is no increased risk of fragility fracture. If followup is to be done, for technical reasons, it should be performed on this same machine. Electronically signed by: Vanessa Argueta M.D. Radiologist: VANESSA ARGUETA M.D. Attending: MIKEY MALLORY M.D. Requesting: MIKEY MALLORY M.D. Requesting Requesting ID: [id number] Attending Attending ID: [id number] Completed Time: 07/16/2015 12:17 AM Dictated Time: 07/16/2015 1:22 PM Transcribed Time: 07/16/2015 1:22 PM Signed by: VANESSA ARGUETA M.D. on 07/16/2015 1:22 PM Report To 1 ID: Report To 1 Name: , Report To 1 FAX: Report To 2 ID: Report To 2 Name: , Report To 2 FAX: Report To 3 ID: Report To 3 Name: , Report To 3 FAX: NextGen Order #: us Historical Provider IMG DXA PROCEDURES Final Result * COLONOSCOPY (07/24/2014) Colonoscopy Normal us Historical Provider HEALTH MAINTENANCE Final Result from Last 3 Months or Most Recently Relevant to Health Maintenance Additional Health Concerns Infection Onset Date Last Indicated MDR gram neg/ESBL Comment:Patients who received care at a healthcare facility outside of the [place] will be placed in Contact Precautions until infection or colonization with specific highly resistant bacteria can be ruled out. Infection Prevention will arrange screening. Please contact Infection Prevention. 09/19/2022 09/19/2022 Insurance [employer] MEDICARE [facility] MEDICARE [facility] MEDICARE Advance Directives For more information, please contact: [phone] Documents on File Type Date Recorded Patient Chronometer Assembler And Adjuster Expl anation ADVANCE DIRECTIVE 09/21/2022 9:34 AM POWER OF CAPTAIN'S ASSISTANT-MEDICAL * Full Code (Latest Code Status on File) Date Activated Date Inactivated Comments 09/19/2022 11:51 AM 09/20/2022 3:36 PM Care Teams Scallop Raker Relationship Specialty Start Date End Date Jayy Morris DO [address] [facility] [address] [place] [address] PCP - General Internal Medicine 06/01/21 Aubree Burch MD Buffing And Sueding Machine Operator Obstetrics and Gynecology 11/15/16 Roddy Junior MD PhD [address] [place] [address] Medical Oncologist/Cementer Machine Hematology 11/15/16 [place] [address] [address] [facility] [address] [facility] [address] [place] [address] Plastic Surgery 11/15/16 Cristian Barrera MD [address] [facility] [facility] [address] [place] [address] Surgeon Orthopedic Surgery 08/09/20
--- OUTSIDE RECORDS SUMMARY | 2024-03-17 13:45 | XMS_ITS | Encounter Summary ---
Author Organization [facility] Address [address] [place] [address] Phone Care Team Providers Care Business Assistant Name Role Phone Jurgen Duenas MD Primary Care Provider + [phone] Aubree Burch MD Unavailable [phone] Roddy Junior MD PhD Unavailable [phone] Ester Carranza MD Unavailable [phone] Cristian Barrera MD Unavailable Jayy Morris DO Primary Care Provider [phone] Encounter Details Date Type Department Care Team (Late st Contact Info) Description 04/06/2017 Orders Only [facility] ProviderColt MD [address] [place] [id number] Social History Tobacco Use Types Packs/Day Years Used Date Smoking Tobacco: Never Smokeless Tobacco: Never Alcohol Use Standard Drinks/Week Comments Yes 0 (1 standard drink = 0.6 oz pur e alcohol) Comments No Sex and Gender Information Value Date Recorded Sex Assigned at Not on file Legal Sex Female 6:23 PM COMMUNICATION ASSISTANT Gender Identity Female 06/10/2020 8:32 AM CDT Sexual Orientation Not on file documented as of this encounter Plan of Treatment Not on file documented as of this encounter Procedures Procedure Name Priority Date/Time Associated Diagnosis Comments DISCHARGE LABORATORY CUMULATIVE REPORT 04/06/2017 12:00 AM COMMUNICATION ASSISTANT documented in this encounter Results * DISCHARGE LABORATORY CUMULATIVE REPORT (04/06/2017 12:00 AM COMMUNICATION ASSISTANT) Narrative 04/06/2017 12:00 AM COMMUNICATION ASSISTANT Ordered by an unspecified provider. us Historical Provider LAB BLOOD ORDERABLES Olivia l Result documented in this encounter Visit Diagnoses Not on filedocumented in this encounter Additional Health Concerns Infection Onset Date Last Indicated Resolved Time MDR gram neg/ESBL Comment:Patients who received care at a healthcare facility outside of the [place] will be placed in Contact Precautions until infection or colonization with specific highly resistant bacteria can be ruled out. Infection Prevention will arrange screening. Please contact Infection Prevention. 09/19/2022 09/19/2022 documented as of this encounter Care Teams Business Assistant Relationship Specialty Start Date End Date Jurgen Duenas MD [address] [place] [address] PCP - General 05/19/16 11/16/20 Jayy Morris DO [address] [place] [address] PCP - General Internal Medicine 06/01/21 Aubree Burch MD [address] [place] [address] Service Developer Obstetrics and Gynecology 11/15/16 Roddy Junior MD PhD [address] [place] [address] Medical Oncologist/Wellness Ambassador Hematology 11/15/16 [place] [address] [place] [address] Plastic Surgery 11/15/16 Cristian Barrera MD [address] [place] [address] Surgeon Orthopedic Surgery 08/09/20 documented as of this encounter
--- OUTSIDE RECORDS SUMMARY | 2024-03-17 13:45 | XMS_ITS | Referral Summary ---
Author Organization [facility] Address [address] [place] [address] Care Team Providers Care Grain Spouter Name Role Phone Aubree Burch MD Unavailable [phone] Roddy Junior MD PhD Unavailable [phone] Ester Carranza MD Unavailable [phone] Cristian Barrera MD Unavailable [phone] Jayy Morris DO Primary Care Provider [phone] Encounters Date Type Department Care Team Description 02/15/2024 Orders Only [facility] Neurology [address] [place] [address] [place] [address] [phone] Kinsey Candelario NP Seizure disorder (CMS/HCC) (HCC) 02/11/2024 Orders Only [facility] Neurology [address] [place] [address] [place] [phone] Kinsey Candelario NP Seizure disorder (CMS/HCC) (HCC) 02/11/2024 10:00 AM CHURCH MUSICIAN Office Visit [facility] Neurology [address] [place] [address] [place] [phone] Kinsey Candelario NP Seizure disorder (CMS/HCC) (HCC) (Primary Dx) 01/01/2024 Telephone [facility] Neurology [address] [place] [address] [place] [phone] Dunajcik, Kinsey, SWEATBAND SEPARATOR Had a seizure from Last 3 Months Allergies Active Allergy Reactions Criticality Noted Date [...] 05/04/2018 Overview (02/22/2018): Starting in December - neuro and got MRI (normal) Dizzy as well To ER for same on 02/06/18 and got steroid pack and antibiotic ear drops Also sudafed No fever No history of sinus problems Assessment & Plan (02/22/2018 1:07 PM CHURCH MUSICIAN): MRI did not show any significant problems [...] December Assessment & Plan (02/22/2018 1:08 PM CHURCH MUSICIAN): Use claritin 10mg daily Use flonase 2 sprays per nostril daily Personal history of breast cancer 11/15/2016 04/19/2017 Breast mass 11/15/2016 04/19/2017 Osteopenia 11/28/2011 05/22/2017 Overview (05/26/2016): Osteopenia Immunizations Name Administration Dates Next Due Influenza, Quad, Adjuvantate d, Intramuscular 12/05/2019 Influenza, Quadrivalent, Spl it, Preservative Free, Intradermal 12/15/2014 Influenza, Trivalent, IM (MDV) 12/02/2013,2013 Influenza, Unspecified 05/28/2018(Deferr ed: Patient decision - declined) Moderna SARS-CoV-2 Monovalen t Vaccination (12+ YRS) 05/13/2020,04/16/2020 Pneumococcal Conjugate PCV 13 09/07/2015 Pneumococcal Polysaccharide PPV23 04/05/2016 Tdap 11/27/2010 Social History Tobacco Use Types Packs/Day Years [...] when you are drinking? 1 or 2 3 Q3: How often do you have si [...] on file Legal Sex Female 6:23 PM CHURCH MUSICIAN Gender Identity Female 06/10/2020 8:32 AM CDT Sexual Orientation Not on file Last Filed Vital Signs Vital Sign Reading Time Taken Comments Blood Pressure 136/78 02/11/2024 9:55 AM CHURCH MUSICIAN Pulse 64 02/11/2024 9:55 AM CHURCH MUSICIAN Temperature 36.7 ??C (98.1 ??F) 09/20/2022 8:47 AM CD T Respiratory Rate 16 09/20/2022 8:47 AM CDT Oxygen Saturation 94% 05/23/2023 2:00 PM CDT Inhaled Oxygen Concentration - - Weight 91.4 kg (201 lb 6.4 oz) 02/11/2024 9:55 A M CHURCH MUSICIAN Height 175.3 cm (5' 9 ) 02/11/2024 9:55 AM CHURCH MUSICIAN Body Mass Index 29.74 02/11/2024 9:55 AM CHURCH MUSICIAN Plan of Treatment Not on file Medical Devices Implanted Type Area Airplane Patrol Pilot Device Identifier Shelf Expiration Date Model / Serial / Lot [employer] Bi Mentum 53mm Press Fit Femoral Proximal Cup Acetabular [id number] - [id number] Implanted:Qty: 1 on 09/19/2022 by Gamaliel Sampson MD at [facility] Left: Hip [employer] 10/19/2024 [id number] / / [id number] [employer] Liner Acet Hip Size 28 Poly Bi Mentum Altrx 53mm [id number] - [id number] Implanted:Qty: 1 on 09/19/2022 by Gamlaiel Sampson MD at [facility] Left: Hip [employer] 11/18/2026 [id number] / / [id number] [employer] Actis Collar Hip 8 Standard Offset Stem Femoral [id number] - [id number] Implanted:Qty: 1 on 09/19/2022 by Gamaliel Sampson MD at [facility] Left: Hip [employer] 10/20/2031 [id number] / / [id number] [employer] Articul/Roman 28mm Cementless Hip +1.5mm 02/01 Taper Head Femoral Latex Free [id number] - [id number] Implanted:Qty: 1 on 09/19/2022 by Gamaliel Sampson MD at [facility] Left: Hip [employer] 07/20/2027 [id number] / / [id number] Procedures Procedure Name Priority Date/Time Associated Diagnosis [...] for left Overall Assessment: 1 - Negative us Aubree Burch MD IMG MAMMO PROCEDURES F inal Result * Dexa Axial Skeleton Bone Density 1 or 2 Site (07/16/2015 12:17 PM CDT) Anatomical Region Laterality Modality Body N/A Radiographic Sahra ging 07/16/2015 12:1 7 PM CDT Narrative 07/16/2015 1:22 PM CDT EXAM: ??Bone mineral density [facility]. HISTORY: ??Status post hysterectomy at the age of 29. Patient currently taking calcium and vitamin D. DXA BMD was done at [facility] on a [employer] CI. Precision testing at this site has [...] by: Vanessa Argueta M.D. Radiologist: VANESSA ARGUETA ??Jessica ?? Attending: ??MIKEY MALLORY M.D. Requesting: MIKEY MALLORY M.D. Requesting Fax: ?? Requesting ID: [id number] Attending Fax: ?? Attending ID: ?? [id number] Completed Time: ?? 07/16/2015 12:17 AM Dictated [...] Colt - 06/21/2016 EXAM: Bone mineral density [facility]. HISTORY: Status post hysterectomy at the age of 29. Patient currently taking calcium and vitamin D. DXA BMD was done at [facility] on a [employer] CI. Precision testing at this site has [...] Requesting: MIKEY MALLORY M.D. Requesting Requesting ID: [id number] Attending Attending ID: [id number] Completed Time: 07/16/2015 12:17 AM Dictated Time: [...] Please contact Infection Prevention. 09/19/2022 09/19/2022 Insurance [facility] MEDICARE [employer] MEDICARE AETNA MEDICARE Advance Directives For more information, please contact: [phone] Documents on File Type Date Recorded Patient Concrete Plant Laborer Expl anation ADVANCE DIRECTIVE 09/21/2022 9:34 AM POWER OF ORDER ENTRY-MEDICAL * Full Code (Latest Code Status on File) Date Activated Date Inactivated Comments 09/19/2022 11:51 AM 09/20/2022 3:36 PM Care Teams Grain Spouter Relationship Specialty Start Date End Date Jayy Morris DO [address] [place] [address] PCP - General Internal Medicine 06/01/21 Aubree Burch MD Supervisor Rose Grading Obstetrics and Gynecology 11/15/16 Roddy Junior MD PhD [address] [place] [address] Medical Oncologist/Electronics Technician Hematology 11/15/16 [place] [address] [place] [address] Plastic Surgery 11/15/16 Cristian Barrera MD [address] [address] Surgeon Orthopedic Surgery 08/09/20
--- OUTSIDE RECORDS SUMMARY | 2024-03-17 13:45 | XMS_ITS | Encounter Summary ---
Author Organization [facility] Address [address] [place] [address] Care Team Providers Care Bank Manager Name Role Phone Jayy Morris DO Primary Care Provider Encounter Details Date Type Department Care Team (Late Contact Info) Description 01/17/1999 Outpatient Historical Division of Neurology [address] [facility], [address] [address] Balaji Arciniega MD [address] [facility] [address] [place] [address] Social History Tobacco Use Types Packs/Day Years Used Date Smoking Tobacco: Never Assessed Comments Unknown Sex and Gender Information Value Date Recorded Sex Assigned at Not on file Legal Sex Female 4:23 AM PIPER HELPER Gender Identity Not on file Sexual Orientation Not on file documented as of this encounter Plan of Treatment Upcoming Encounters Date Type Department Care Team (Late Contact Info) Description 03/20/2024 1:00 PM PIPER HELPER Office Visit [facility] Oncology and Hematology - Mehul [address] [facility] [address] [place] [address] Pierre Andres MD [address] [facility] [address] [place] [address] documented as of this encounter Visit Diagnoses Not on filedocumented in this encounter Care Teams Bank Manager Relationship Specialty Start Date End Date Jayy Morris DO [address] [facility] [address] [place] [address] PCP - General Internal Medicine 01/02/23 documented as of this encounter
== END 2024-03-17 13:05 | disposition home or self-care (01) ==
LOC: ANHIMG 13:07
PROVIDERS: PCP Internal Medicine; Visit Provider Clinical Nurse Specialist
DX: Z78.0 Asymptomatic menopausal state (principal); M85.851 Other specified disorders of bone density and structure, right thigh
CPT/HCPCS: 77080

== ENCOUNTER 2024-03-20 12:31 | Outpatient (CLI) | payer MEDICARE, SELFPAY ==
[2024-03-20 12:40] LABS: Basophils Percent Auto 0.7 % (0.2-1.2); Eosinophils Absolute Auto 0.1 K/mm3 (0-0.3); Eosinophils Percent Auto 1.3 % (0-4.4); Hematocrit 40.8 % (37.0-47.0); Hemoglobin 13.1 g/dL (12.0-15.0); Immature Granulocyte Absolute 0.01 K/mm3 (0.00-0.031); Immature Granulocyte Percent A 0.2 % (0-0.5); Lymphocytes Absolute Auto 2.04 K/mm3 (0.9-3.2); Lymphocytes Percent Auto 38.1 % (18.3-44.2); Mean Corpuscular HGB Conc 32.1 g/dl (32-36); Mean Corpuscular Hemoglobin 31.6 pg (26-34); Mean Corpuscular Volume 98.3 fl (80-100); Mean Platelet Volume 8.9 fl (7.4-10.4); Monocytes Absolute Auto 0.5 K/mm3 (0.1-0.6); Monocytes Percent Auto 9.2 % (2.6-8.5); Neutrophils Absolute Auto 2.7 K/mm3 (1.3-6.7); Neutrophils Percent Auto 50.5 % (45.5-73.1); Platelet Count Result 223 k/mm3 (150-375); Red Blood Count 4.15 M/mm3 (4.2-5.4); Red Cell Distribution Width 13.1 % (11.5-14.5); White Blood Count 5.4 K/mm3 (4.5-10.0)
[2024-03-20 12:44] LABS: Blood Urea Nitrogen 12 mg/dL (8-26); Carbon Dioxide 28 mmol/L (22-30); Chloride 103 mmol/L (98-109); Estimated Glomerular Filt Rate > 60; Glucose 90 mg/dL (70-105); Ionized Calcium (POC) 1.25 mmol/L (1.11-1.31); Potassium 3.9 mmol/L (3.5-4.9); Sodium 141 mmol/L (138-146)
--- OUTSIDE RECORDS SUMMARY | 2024-03-20 13:16 | XMS_ITS | Encounter Summary ---
Author Organization [facility] Address [address] [place] [address] Care Team Providers Care Profiling Machine Setup Operator Name Role Phone Jayy Morris DO Primary Care Provider Encounter Details Date Type Department Care Team (Late st Contact Info) Description 12/20/2000 Outpatient Historical Division of Neurology [address] [address] Balaji Arciniega MD [address] [place] [address] Social History Tobacco Use Types Packs/Day Years Used Date Smoking Tobacco: Never Assessed Comments Unknown Sex and Gender Information Value Date Recorded Sex Assigned at Not on file Legal Sex Female 4:23 AM CRAFT RECRUITER Gender Identity Not on file Sexual Orientation Not on file documented as of this encounter Plan of Treatment Not on file documented as of this encounter Visit Diagnoses Not on filedocumented in this encounter Care Teams Profiling Machine Setup Operator Relationship Specialty Start Date End Date Jayy Morris DO [address] [phone] PCP - General Internal Medicine 01/02/23 documented as of this encounter
--- OUTSIDE RECORDS SUMMARY | 2024-03-20 13:16 | XMS_ITS | Clinical Summary ---
Author Organization [facility] Administrative Offices Address [address] [place] [address] Care Team Providers Care Control Board Operator Name Role Phone Jayy Morris Primary Care Provider Allergies Active Allergy Reactions [...] Active levETIRAcetam (KEPPRA) 1,000 mg tablet Take 1,000 mg by mouth 2 times daily. Also takes a 250 mg tablet 3 Active omeprazole (PriLOSEC) 20 mg Capsule, [...] Encounters Date Type Department Care Team Description 03/20/2024 1:00 PM MAIL ROOM CLERK Office Visit [facility] Oncology and Hematology - Mehul [address] [place] [address] Pierre Andres MD Arrived 03/19/2024 Orders Only [facility] Oncology and Hematology - [address] [place] [address] Pierre Andres MD Acute deep vein thrombosis (DVT) of proximal vein of left lower extremity (CMS/HCC) (Primary Dx) 03/13/2024 External Device Data STL ABSTRACTION Provider, [...] on file Legal Sex Female 4:23 AM MAIL ROOM CLERK Gender Identity Not on file Sexual Orientation Not on file Last Filed Vital Signs Vital Sign Reading Time Taken Comments Blood Pressure 138/78 03/20/2024 1:13 PM MAIL ROOM CLERK Pulse 67 03/20/2024 1:08 PM MAIL ROOM CLERK Temperature 37.1 ??C (98.8 ??F) 03/20/2024 1:08 PM CS T Respiratory Rate 15 03/20/2024 1:08 PM MAIL ROOM CLERK Oxygen Saturation 95% 03/20/2024 1:08 PM MAIL ROOM CLERK Inhaled Oxygen Concentration - - Weight 92.2 kg (203 lb 3.2 oz) 03/20/2024 1:08 P M MAIL ROOM CLERK Height 175.3 cm (5' 9 ) 01/02/2023 2:36 PM MAIL ROOM CLERK Body Mass Index 30.01 01/02/2023 2:36 PM MAIL ROOM CLERK Plan of Treatment Health Maintenance Due Date [...] Tdap) 11/27/2020 11/27/2010 INFLUENZA VACCINE (#1) 2023 0, 12/15/2014, 12/02/2013 COVID-19 Vaccine (3 - 2023-2 5 season) 2023 05/13/2020, 04/16/2020 [place]) Preventative Visit/Annual Wellness Visit 02/20/2024 07/24/2017 RSV VACCINE (60+ or ) (1 - 1-dose 75+ series) 2025 OSTEOPOROSIS SCREENING Completed 6, 07/16/2015, 12/13/2012 PNEUMOCOCCAL VACCINE 65+ YEARS Completed 04/05/2016 , 09/07/2015 Insurance AETNA PPO MCR Care Teams Control Board Operator Relationship Specialty Start Date End Date Jayy Morris DO [address] [phone] PCP - General Internal Medicine 01/02/23
--- OUTSIDE RECORDS SUMMARY | 2024-03-20 13:16 | XMS_ITS | Encounter Summary ---
Author Organization [facility] Address [address] [place] [address] Care Team Providers Care Roof Tiler Name Role Phone Jayy Morris DO Primary Care Provider Encounter Details Date Type Department Care Team (Late st Contact Info) Description 01/24/2002 Outpatient Historical Division of Neurology [address] [address] Balaji Arciniega MD [address] [facility] [address] [place] [address] Social History Tobacco Use Types Packs/Day Years Used Date Smoking Tobacco: Never Assessed Comments Unknown Sex and Gender Information Value Date Recorded Sex Assigned at Not on file Legal Sex Female 4:23 AM BONDING SUPERVISOR Gender Identity Not on file Sexual Orientation Not on file documented as of this encounter Plan of Treatment Not on file documented as of this encounter Visit Diagnoses Not on filedocumented in this encounter Care Teams Roof Tiler Relationship Specialty Start Date End Date Jayy Morris DO [address] [phone] PCP - General Internal Medicine 01/02/23 documented as of this encounter
--- OUTSIDE RECORDS SUMMARY | 2024-03-20 13:16 | XMS_ITS | Encounter Summary ---
Author Organization [facility] Address [address] [place] [address] Care Team Providers Care Rock Worker Name Role Phone Jayy Morris DO Primary Care Provider Encounter Details Date Type Department Care Team (Late st Contact Info) Description 05/04/2003 Outpatient Historical Division of Neurology [address] [address] Balaji Arciniega MD [address] [facility] [address] [place] [address] Social History Tobacco Use Types Packs/Day Years Used Date Smoking Tobacco: Never Assessed Comments Unknown Sex and Gender Information Value Date Recorded Sex Assigned at Not on file Legal Sex Female 4:23 AM FINANCIAL COACH Gender Identity Not on file Sexual Orientation Not on file documented as of this encounter Plan of Treatment Not on file documented as of this encounter Visit Diagnoses Not on filedocumented in this encounter Care Teams Rock Worker Relationship Specialty Start Date End Date Jayy Morris DO [address] [phone] PCP - General Internal Medicine 01/02/23 documented as of this encounter
--- OUTSIDE RECORDS SUMMARY | 2024-03-20 13:16 | XMS_ITS | Encounter Summary ---
Author Organization [facility] Address [address] [place] [address] Care Team Providers Care Improvement Manager Name Role Phone Jayy Morris DO Primary Care Provider Encounter Details Date Type Department Care Team (Late st Contact Info) Description 02/06/2000 Outpatient Historical Division of Neurology [address] [address] Balaji Arciniega MD [address] [facility] [address] [place] [address] Social History Tobacco Use Types Packs/Day Years Used Date Smoking Tobacco: Never Assessed Comments Unknown Sex and Gender Information Value Date Recorded Sex Assigned at Not on file Legal Sex Female 4:23 AM INTRAMURAL DIRECTOR Gender Identity Not on file Sexual Orientation Not on file documented as of this encounter Plan of Treatment Not on file documented as of this encounter Visit Diagnoses Not on filedocumented in this encounter Care Teams Improvement Manager Relationship Specialty Start Date End Date Jayy Morris DO [address] [phone] PCP - General Internal Medicine 01/02/23 documented as of this encounter
--- OUTSIDE RECORDS SUMMARY | 2024-03-20 13:16 | XMS_ITS | Encounter Summary ---
Author Organization [facility] Address [address] [place] [address] Care Team Providers Care Home Service Technician Name Role Phone CandaceJayy ayers Shayne Primary Care Provider Encounter Details Date Type Department Care Team (Late st Contact Info) Description 03/19/2024 Orders Only [facility] Oncology and Hematology - Mehul [address] [facility] [address] [place] [address] Pierre Andres MD [address] [facility] [address] [place] [address] Acute deep vein thrombosis (DVT) of proximal vein of left lower extremity (CMS/HCC) (Primary Dx) Social History Tobacco Use Types Packs/Day Years Used Date Smoking Tobacco: Never Smokeless Tobacco: Never Alcohol Use Standard Drinks/Week Comments Not Currently 0 (1 standard drink = 0.6 oz pur e alcohol) Comments Unknown Sex and Gender Information Value Date Recorded Sex Assigned at Not on file Legal Sex Female 4:23 AM GRAIN PACKER Gender Identity Not on file Sexual Orientation Not on file documented as of this encounter Plan of Treatment Scheduled Orders Name Type Priority Associated Diagnoses Orde r Schedule CBC WITH DIFFERENTIAL Lab Routine Acute deep vein thrombosis (DVT) of proximal vein of left lower extremity (CMS/HCC) Expected: 03/19/2024, Expires: 03/19/2025 COMPREHENSIVE METABOLIC PANEL Lab Routine Acute deep vein thrombosis (DVT) of proximal vein of left lower extremity (CMS/HCC) Expected: 03/19/2024, Expires: 03/19/2025 documented as of this encounter Visit Diagnoses Diagnosis Acute deep vein thrombosis (DVT) of proximal vein of left lower extremity (CMS/HCC)- Primary documented in this encounter Care Teams Home Service Technician Relationship Specialty Start Date End Date Jayy Morris DO [address] [phone] PCP - General Internal Medicine 01/02/23 documented as of this encounter
--- OUTSIDE RECORDS SUMMARY | 2024-03-20 13:16 | XMS_ITS | Encounter Summary ---
Author Organization [facility] Address [address] [place] [address] Care Team Providers Care Computer Help Desk Specialist Name Role Phone Jayy Morris DO Primary Care Provider Encounter Details Date Type Department Care Team (Late st Contact Info) Description 01/17/1999 Outpatient Historical Division of Neurology [address] [address] Balaji Arciniega MD [address] [place] [address] Social History Tobacco Use Types Packs/Day Years Used Date Smoking Tobacco: Never Assessed Comments Unknown Sex and Gender Information Value Date Recorded Sex Assigned at Not on file Legal Sex Female 4:23 AM STACK SUPERVISOR Gender Identity Not on file Sexual Orientation Not on file documented as of this encounter Plan of Treatment Not on file documented as of this encounter Visit Diagnoses Not on filedocumented in this encounter Care Teams Computer Help Desk Specialist Relationship Specialty Start Date End Date Jayy Morris DO [address] [phone] PCP - General Internal Medicine 01/02/23 documented as of this encounter
--- OUTSIDE RECORDS SUMMARY | 2024-03-20 13:17 | XMS_ITS | Encounter Summary ---
Author Organization [facility] Address [address] [place] [address] Care Team Providers Care Legal Compliance Officer Name Role Phone Jayy Morris DO Primary Care Provider Encounter Details Date Type Department Care Team (Late st Contact Info) Description 10/19/2005 Outpatient Historical Division of Neurology [address] [address] Balaji Arciniega MD [address] [place] [address] Social History Tobacco Use Types Packs/Day Years Used Date Smoking Tobacco: Never Assessed Comments Unknown Sex and Gender Information Value Date Recorded Sex Assigned at Not on file Legal Sex Female 4:23 AM GRAPHIC ART SALES REPRESENTATIVE Gender Identity Not on file Sexual Orientation Not on file documented as of this encounter Plan of Treatment Not on file documented as of this encounter Visit Diagnoses Not on filedocumented in this encounter Care Teams Legal Compliance Officer Relationship Specialty Start Date End Date Jayy Morris DO [address] [phone] PCP - General Internal Medicine 01/02/23 documented as of this encounter
--- OUTSIDE RECORDS SUMMARY | 2024-03-20 13:17 | XMS_ITS | Encounter Summary ---
Author Organization [facility] Address [address] [place] [address] Care Team Providers Care Street Sweeper Operator Name Role Phone Jayy Morris DO Primary Care Provider Encounter Details Date Type Department Care Team (Late st Contact Info) Description 05/10/2006 Outpatient Historical Division of Neurology 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
[2024-03-20 14:46] LABS: Alanine Aminotransferase 24 U/L (6-35); Albumin Level 4.6 g/dL (3.5-5.1); Alkaline Phosphatase 58 U/L (38-126); Anion Gap 11 mmol/L (4-12); Aspartate Amino Transferase 28 U/L (14-36); Bilirubin,Total 0.6 mg/dL (0.2-1.3); Blood Urea Nitrogen 12 mg/dL (7-17); Calcium 9.9 mg/dL (8.4-10.2); Carbon Dioxide 27 mmol/L (22-30); Chloride 103 mmol/L (98-107); Estimated Glomerular Filt Rate > 60; Glucose 88 mg/dL (65-110); Potassium 4.1 mmol/L (3.4-5.0); Sodium 141 mmol/L (137-145)
== END 2024-03-20 12:32 | disposition home or self-care (01) ==
LOC: ANHLAB 12:32
PROVIDERS: PCP Internal Medicine; Visit Provider Internal Medicine Hematology & Oncology
DX: I82.4Y2 Acute embolism and thrombosis of unspecified deep veins of left proximal lower extremity (principal)
CPT/HCPCS: 36415; 80047; 80053; 85025

== ENCOUNTER 2024-09-10 09:37 | Outpatient (CLI) | payer MEDICARE, SELFPAY ==
--- NOTE | ~2024-09-10 | XR_ITS ---
EXAM/ PROCEDURE: XR knee LT 3V - 09/10/2024 9:42 CDT HISTORY: 74 years old Female with M25.562 - Pain in left knee COMPARISON: None available TECHNIQUE: Three view(s) FINDINGS/ IMPRESSION: There are no fractures or dislocations.Joint space narrowing, subchondral sclerosis, subchondral cyst formation and osteophyte formation, compatible with mild osteoarthritis. Reviewed, dictated and finalized at location A.
== END 2024-09-10 09:38 | disposition home or self-care (01) ==
LOC: GOSHIMG 09:38
PROVIDERS: PCP Clinical Nurse Specialist; Visit Provider Clinical Nurse Specialist
DX: M25.562 Pain in left knee (principal)
CPT/HCPCS: 73562

== ENCOUNTER 2024-12-29 10:11 | Emergency (ER) | payer MEDICARE, SELFPAY ==
[2024-12-29 10:26] VITALS: BP 133/76; PULSE 88; RESP 16; TEMP 36.4; O2SAT 94
--- NOTE | 2024-12-29 10:33 | ED.DENTAL ---
HPI - Dental/Oral General Chief complaint: Dental/Oral Stated complaint: Headache/Tooth Pain/Ear Pain Time Seen by Provider: 12/29/24 10:32 Source: patient, family, RN notes reviewed and old records reviewed Mode of arrival: ambulatory Limitations: no limitations History of Present Illness HPI Narrative: 74 year old female who presents to [facility] care with complaints of tooth pain on the left upper jaw, ear pain, and headache pain to the left forehead region. Patient reports that she initially had root canal done in May and continued to have problem was referred to sewer head and had root canal redone and crown to left upper molar the end of November. Patent reports that she is still having some discomfort to the tooth and now also headache and left ear pain. Patient reports that 3 days last week she had 3 days of chills decreased appetite and also had fever but no recent fevers.Patient reports that she has taken Tylenol with little pain relief,she is on blood thinner Eliquis for history of blood clots and can not take any Ibuprofen. MD Complaint: tooth pain (headache,ear pain and had fevers and chills 3 days last week) Onset (ago): month(s) (several months increased symptoms past 2 weeks) Severity scale (1-10): 5 Treatment prior to arrival: oral analgesic (Tylenol) Related Data Home Medications ?Medication ?Instructions ?Recorded ?Confirmed ?Last Taken ?Type calcium carbonate (Calcium 600) 600 mg PO DAILY 04/13/20 12/29/24 12/25/20 History cholecalciferol (vitamin D3) 125 125 mcg PO DAILY 04/13/20 12/29/24 12/25/20 History mcg (5,000 unit) capsule mecobalamin (vitamin B12) 1,000 1,000 mcg PO DAILY 04/13/20 12/29/24 12/25/20 History mcg chewable tablet multivitamin (One-A-Day Essential 1 tablet PO DAILY 04/13/20 12/29/24 12/25/20 History tablet) vit C,E,copper,zinc-dbqiy0q 250 1 cap PO DAILY 04/13/20 12/29/24 12/25/20 History mg-lutein 5 mg-zeaxanthin 1 mg capsule (Ocuvite Adult 50 Plus) antiarthritic combination no.2 900 900 mg PO BID 11/17/20 12/29/24 12/25/20 History mg tablet (glucosamine-chondroitin) Allergies Allergy/AdvReac Type Severity Reaction Status Date / Time alendronate sodium (From Allergy Mild scalp Verified 12/29/24 10:29 Fosamax) burning,hairloss,acid reflux adhesive Allergy Unknown ITCHING Verified 12/29/24 10:29 cyclosporine (From Restasis) Allergy Blurry Verified 12/29/24 10:29 Vision exemestane Allergy Swelling Verified 12/29/24 10:29 ibandronate sodium (From Allergy Rash Verified 12/29/24 10:29 Boniva) melatonin Allergy Depression Verified 12/29/24 10:29 piroxicam Allergy Nose Bleed Verified 12/29/24 10:29 tamoxifen Allergy Gave leg Verified 12/29/24 10: blood clot zolpidem Allergy Depression Verified 12/29/24 10:29 Astrastatin Allergy Mild Nose Bleed Uncoded 06/17/24 13:03 crestor Allergy Mild Unknown Uncoded 06/17/24 13:03 Review of Systems Review of Systems: CONSTITUTIONAL: reports 3 days of fever, chills, or sweats last week presently no fevers. EYES: Denies visual changes, redness, or discharge. ENT: Denies rhinorrhea, congestion, sore throat, positive for left otalgia.some dental pain to left upper molar CARDIOVASCULAR: Denies chest pain, palpitations, or edema. RESPIRATORY: Denies cough or dyspnea. GASTROINTESTINAL: Denies abdominal pain, nausea, vomiting, or diarrhea. GENITOURINARY: Denies dysuria or hematuria admits to some frequency of urination lately. SKIN: Denies rash or itching. MUSCULOSKELETAL: Denies back pain, joint pain, or myalgia. NEUROLOGIC: Reports headache to left temporal side of head, no numbness, or weakness. PSYCHIATRIC: Denies anxiety or depression. All systems reviewed & are unremarkable except as noted in HPI and below PMFSH Past Medical History Medical History Cough Fatigue Shortness of Breath History of breast cancer Swelling of right lower extremity Screening for colon cancer Left groin pain Diarrhea Other specified disorders of nose and nasal sinuses TMJ (temporomandibular joint disorder) Otalgia of left ear Vitamin D deficiency Chest discomfort Adenomatous colon polyp Broken leg Right 03/2020 Seizures Mild acid reflux Constipation Wears glasses Vision changes Osteopenia High cholesterol Nocturnal seizures Breast cancer Surgical History Surgical History Status post left hip replacement Hx of total mastectomy of right breast H/O reduction mammoplasty 11/28/2010: Left breast Liposuction, non acoustic operator removed, permanent put in Right nipple reconstruction: 06/05/2011 H/O shoulder surgery Right: 03/24/2005 H/O hernia repair 1979 History of appendectomy 1979 History of tonsillectomy 1958 History of hysterectomy 1979 History of arthroscopy of left knee 09/14/1997 History of rotator cuff surgery H/O mastectomy Right: 06/28/2010 Family History Family History Mother Cerebrovascular accident Sibling Thyroid disease Other Arthritis Social History Social History Alcohol intake: current Drinks per week: 7 Substance use: never Substance use type: does not use Do You Feel Safe in your Home?: Yes Lack of Transportation: No Lack of Food: Never True Current Housing: I Have Housing Concerned About Future Housing: No Difficulty Paying Gas/Electric Bills: No Difficulty Paying for Meds: No Currently Unemployed: No Difficulty w/ Childcare or Family Care: No Living arrangements: with family Gender identity (if verbalized by the patient): Female Spiritual care concerns: No Comments At time of signature, agree with nursing past medical, surgical, social and family history. There is no relevant family history pertinent to the presenting complaint Exam Narrative: GENERAL: Well-appearing, well-nourished, and in no some distress. HEAD: Normocephalic, atraumatic. EYES: PERRLA and EOMI. ENT: Nares clear, no rhinorrhea or epistaxis. Mucous membranes moist.TM's normal with good light reflex, throat pink with no swelling, ental pain to left upper molar with no swelling or any redness of gum or any sign of abscess, crown noted to tooth, No Cj angina or any trismus NECK: Supple.no lymphadenopathy CHEST: Clear to auscultation. No respiratory distress.SAO2 94% on room air HEART: Regular rate and rhythm. No murmur heard. Normal peripheral pulses. ABDOMEN: Soft, nontender, nondistended, normal active bowel sounds. EXTREMITIES: Normal range of motion. No edema. SKIN: Warm, dry, no rash. NEURO: No focal deficits. Alert and oriented x3.headache pain to left temporal area with normal equal temporal pulses, tongue is midline, face is symmetrical moves all extremities on own power with no drift. Course Course Emergency Course: Patient is aware of diagnosis, understands and agrees to treatment plan.? Anticipatory guidance given.? Patient agrees to follow-up as directed and is aware of reasons to seek care at the emergency department. Portions of this record may have been created with voice recognition software Level of Care: Express Care Visit Vital Signs Vital signs: Vital Signs Temperature 36.4 C 12/29/24 10:26 Pulse Rate 88 12/29/24 10:26 Respiratory Rate 16 12/29/24 10:26 Blood Pressure 133/76 12/29/24 10:26 Pulse Oximetry 94 12/29/24 10:26 Temperature 36.4 C 12/29/24 10:26 Pulse Rate 88 12/29/24 10:26 Respiratory Rate 16 12/29/24 10:26 Blood Pressure 133/76 12/29/24 10:26 Pulse Oximetry 94 12/29/24 10:26 Reviewed MDM - Dental/Oral Differential Diagnosis Differential diagnosis: Likely toothache and other (headache, left otalgia, UTI) Medical Records Attestation: I reviewed the patient's medical records. Lab Data Attestation: I reviewed the patient's lab results. Lab results narrative: urine dip: trace blood, trace Leukocytes, positive nitrite, protein 3+, ketones 1+ specific gravity 1.025 Labs: Lab Results 12/29/24 Range/Units 10:50 POC Urine Color Yellow POC Urine Clarity Clear POC Urine pH 5.5 POC Ur Specif [place] 1.025 POC Urine Protein 3+ (Negative) POC Ur Glucose (UA) Negative (Negative) POC Urine Ketones 1+ (Negative) POC Urine Blood Trace (Negative) POC Urine Nitrite Positive (Negative) POC Urine Bilirubin 1+ (Negative) POC Urine Urobilinogen 0.2 POC U Leukocyte Esteras Trace (Negative) reviewed Critical Care Time Critical Care Time Critical Care Time: No Discharge Plan Discharge Clinical Impression: Pain, dental Urinary tract infection Qualifiers: Urinary tract infection type: site unspecified Hematuria presence: with hematuria Qualified Code(s): N39.0 - Urinary tract infection, site not specified Headache Qualifiers: Headache type: unspecified Headache chronicity pattern: acute headache Intractability: not intractable Qualified Code(s): R51.9 - Headache, unspecified Patient Disposition: Home Condition: Stable Instructions: Antibiotic Form, Urinary Tract Infection in Women (ED), Acute Headache (ED), Toothache (ED) Additional Instructions: Increase fluids especially cranberry juice and water Avoid caffeine and carbonated beverages Antibiotic as directed Tylenol/ibuprofen for pain or fever Follow-up with her primary care provider if further problems or concerns Recheck if you have fever over 101, nausea and vomiting. Tylenol arthritis for pain or if acute discomfort may take Tylenol with codeine as prescribed If dental pain does not resolve need to contact your dentist Call your PCP if headache continues If your symptoms persist, change or worsen significantly before you can contact your personal physician then please, without delay, go to the emergency department for further evaluation. Follow-up with PCP in 7-10 days or sooner if needed Follow up with PCP soon in regards to your blood pressure which is elevated above threshold for referral. Blood pressure above 120/80 may indicate pre-hypertension. 133/76 Patient Language: Stateless Prescriptions: New amoxicillin-pot clavulanate 875-125 mg tablet 1 tablet PO Q12H Qty: 20 0RF Rx Instructions: take with food, recommend taking probiotic while taking this medication acetaminophen-codeine 300-30 mg tablet 1 tablet PO Q6H PRN (Reason: pain) Qty: 10 0RF Rx Instructions: headache No Action multivitamin [One-A-Day Essential] Tablet 1 tablet PO DAILY mecobalamin (vitamin B12) 1,000 mcg tablet,chewable 1,000 mcg PO DAILY cholecalciferol (vitamin D3) 125 mcg (5,000 unit) capsule 125 mcg PO DAILY calcium carbonate [Calcium 600] 600 mg calcium (1,500 mg) tablet 600 mg PO DAILY Ocuvite Adult 50 Plus 250-5-1 mg capsule 1 cap PO DAILY glucosamine-chondroitin 900 mg tablet 900 mg PO BID Eliquis 5 mg tablet 5 mg PO BID Qty: 180 0RF levetiracetam [Keppra] 750 mg tablet 1,000 mg PO BID Qty: 180 0RF Rx Instructions: LAST REFILL UNTIL SEEING NEUROLOGY pravastatin 40 mg tablet See Rx Instructions .ROUTE .COMPLEX Qty: 45 1RF Dose Instruction: TAKE 1 TABLET EVERY OTHER DAY Rx Instructions: TAKE 1 TABLET EVERY OTHER DAY Follow-up/Referrals: Jayy Morris, [Primary Care Provider, Internal Medicine] Stand Alone Forms: Work/School Release IP Time of Disposition: 11:14 Quality [place] Coma Scale Eyes: Open Verbal: Oriented and Alert Motor: Follows Commands [place] Coma Total Score: 15
[2024-12-29 11:01] LABS: EDUAAPPEAR Clear; EDUABILI 1+ (Negative); EDUABLOOD Trace (Negative); EDUACOLOR1 Yellow; EDUAGLUCOSE Negative (Negative); EDUAKETONE 1+ (Negative); EDUALEUKO Trace (Negative); EDUANITRATE Positive (Negative); EDUAPH 5.5; EDUAPROTEIN 3+ (Negative); EDUASPGRAVITY 1.025; EDUAUROBILI 0.2
== END 2024-12-29 11:20 | disposition home or self-care (01) ==
PROVIDERS: Emergency Provider Registered Nurse; PCP Internal Medicine
DX: K08.89 Other specified disorders of teeth and supporting structures (principal); N39.0 Urinary tract infection, site not specified; R51.9 Headache, unspecified; G40.909 Epilepsy, unspecified, not intractable, without status epilepticus; E78.00 Pure hypercholesterolemia, unspecified; K21.9 Gastro-esophageal reflux disease without esophagitis; E55.9 Vitamin D deficiency, unspecified; M85.80 Other specified disorders of bone density and structure, unspecified site; Z85.3 Personal history of malignant neoplasm of breast; Z90.11 Acquired absence of right breast and nipple; Z96.642 Presence of left artificial hip joint; Z86.2 Personal history of diseases of the blood and blood-forming organs and certain disorders involving the immune mechanism; Z79.01 Long term (current) use of anticoagulants
CPT/HCPCS: 81003; 87077; 87086; 87186; 99213; G0463

== ENCOUNTER 2025-01-20 11:44 | Emergency (ER) | payer MEDICARE, SELFPAY ==
--- NOTE | ~2025-01-20 | CT_ITS ---
EXAMINATION: CT lumbar spine wo con COMPARISON: None HISTORY: fall TECHNIQUE: Axial images were obtained through the spine without IV contrast. Coronal, sagittal reconstruction images were obtained from the axial views. CT scan performed using dose optimization techniques including the following automated exposure control; adjustment of mA and/or kV; use of iterative reconstruction technique. Automatic exposure control was used to reduce radiation dose. Permanent radiation dose record is archived to PACS. FINDINGS: Moderate loss of vertebral height throughout, no acute fracture identified. Grade 1 anterolisthesis of L3 on L4. There is a remote superior endplate fracture of T12. Moderate loss of disc height at L2-3 L3-4 and L4-5 with moderate to severe canal and foraminal stenosis. Soft tissues demonstrate simple appearing right peripelvic renal cyst 2 x 2 cm with the left renal calculi the largest 3 mm, there are bilateral adrenal nodules incompletely evaluated the largest right side 1.1 x 4.2 cm, outpatient adrenal MRI suggested. Impression: No acute abnormality. Reviewed, dictated and finalized at location P. R SEAMER Impression: No acute abnormality.
--- NOTE | ~2025-01-20 | CT_ITS ---
EXAMINATION: CT brain wo con, 01/20/2025 12:50 EXHIBITS MANAGER HISTORY: fall COMPARISON: No comparisons available. Technique: Axial images obtained of the brain without contrast. One or more of the following dose reduction techniques were used: automated exposure control, adjustment of the mA and/or kV according to patient size, use of iterative reconstruction technique. Findings: No acute infarct or parenchymal hemorrhage. No abnormal mass or mass effect. No midline shift. No extra-axial fluid collections. No hydrocephalus. Mastoid air cells unremarkable. Sinuses and orbits unremarkable. No acute fracture. No significant facial or scalp soft tissue swelling evident. No radiopaque foreign body is seen. Impression: 1.No acute intracranial abnormality. Reviewed, dictated and finalized at location P. BITS MANAGER Impression: 1.No acute intracranial abnormality.
--- NOTE | ~2025-01-20 | XR_ITS ---
XR hip BI 2V w AP pelvis 01/20/2025 12:58 Indication: Status post fall. Hip pain. Procedure: AP pelvis and 2 views each hip Comparison: 04/05/2022 Findings: Mild osteoarthritis of the right hip. There is a left bipolar hip hemiarthroplasty. Pelvic rings intact. Sacral foramen are symmetric. There is osteitis pubis. There is lower lumbar spondylosis. No acute fracture or traumatic malalignment. Impression: 1: No acute fracture. Reviewed, dictated and finalized at location I. MATIC TUBE OPERATOR Impression: 1: No acute fracture.
--- NOTE | ~2025-01-20 | CT_ITS ---
EXAMINATION: CT cervical spine wo con COMPARISON: None HISTORY: fall TECHNIQUE: Axial images were obtained through the spine without IV contrast. Coronal, sagittal reconstruction images were obtained from the axial views. CT scan performed using dose optimization techniques including the following automated exposure control; adjustment of mA and/or kV; use of iterative reconstruction technique. Automatic exposure control was used to reduce radiation dose. Permanent radiation dose record is archived to PACS. FINDINGS: Grade 1 anterolisthesis of C4 on C5, no fracture is identified. Moderate to severe loss of disc height at C3-4 C5-6 and C6-7 with moderate to severe canal and foraminal stenosis, MRI is suggested. Soft tissues unremarkable. Impression: No acute abnormality. Reviewed, dictated and finalized at location P. DRIER Impression: No acute abnormality.
[2025-01-20 11:48] VITALS: BP 130/102; PULSE 72; RESP 18; TEMP 36.2; O2SAT 99
--- OUTSIDE RECORDS SUMMARY | 2025-01-20 12:44 | XMS_ITS | Encounter Summary ---
Author Organization [facility] Address [address] [place] [address] Care Team Providers Care Assessment Counselor Name Role Phone Jayy Morris DO Primary Care Provider Encounter Details Date Type Department Care Team (Late Contact Info) Description 10/19/2005 Outpatient Historical Division of Neurology [address] 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 Gender Identity Not on file Sexual Orientation Not on file documented as of this encounter Plan of Treatment Upcoming Encounters Date Type Department Care Team (Late Contact Info) Description 03/23/2025 10:00 AM CYANIDE POT HARDENER Office Visit [facility] Oncology and Hematology - [address] [place] [address] Pierre Andres MD [address] [facility] [address] [place] [address] documented as of this encounter Visit Diagnoses Not on filedocumented in this encounter Care Teams Assessment Counselor Relationship Specialty Start Date End Date Jayy Morris DO [address] [facility] [address] [place] [address] PCP - General Internal Medicine 01/02/23 documented as of this encounter
--- OUTSIDE RECORDS SUMMARY | 2025-01-20 12:44 | XMS_ITS | Encounter Summary ---
Author Organization [facility] Address 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 Gender Identity Not on file Sexual Orientation Not on file documented as of this encounter Plan of Treatment Upcoming Encounters Date Type Department Care Team (Late Contact Info) Description 03/23/2025 10:00 AM LINE SUPERVISOR Office Visit [facility] Oncology and Hematology - [address] [place] [address] Pierre Andres MD [address] [facility] [address] [place] [address] documented as of this encounter Visit Diagnoses Not on filedocumented in this encounter Care Teams Avionic Technician Relationship Specialty Start Date End Date Jayy Morris DO [address] [facility] [address] [place] [address] PCP - General Internal Medicine 01/02/23 documented as of this encounter
--- OUTSIDE RECORDS SUMMARY | 2025-01-20 12:44 | XMS_ITS | Clinical Summary ---
Author Organization [facility] Administrative Offices Address [address] [place] [address] Care Team Providers Care Alarm Mechanism Adjuster Name Role Phone Jayy Morris Primary Care [...] by mouth twice daily. 180 Tablet 3 5 Active Active Problems No known active problems Encounters Date Type Department Care Team Description 12/10/2024 External Device Data STL ABSTRACTION Provider, Abstract 12/09/2024 External Device Data STL ABSTRACTION Provider, Abstract 11/11/2024 External Device Data STL ABSTRACTION Provider, Abstract 11/04/2024 External Device Data STL ABSTRACTION Provider, Abstract 10/28/2024 External Device Data STL ABSTRACTION Provider, Abstract [...] on file Legal Sex Female 4:23 AM LEGAL SUPPORT ASSISTANT Gender Identity Not on file Sexual Orientation Not on file Last Filed Vital Signs Vital Sign Reading Time Taken Comments Blood Pressure 138/78 03/20/2024 1:13 PM LEGAL SUPPORT ASSISTANT Pulse 67 03/20/2024 1:08 PM LEGAL SUPPORT ASSISTANT Temperature 37.1 C (98.8 F) 03/20/2024 1:08 PM LEGAL SUPPORT ASSISTANT Respiratory Rate 15 03/20/2024 1:08 PM LEGAL SUPPORT ASSISTANT Oxygen Saturation 95% 03/20/2024 1:08 PM LEGAL SUPPORT ASSISTANT Inhaled Oxygen Concentration - - Weight 92.2 kg (203 lb 3.2 oz) 03/20/2024 1:08 P M LEGAL SUPPORT ASSISTANT Height 175.3 cm (5' 9) 01/02/2023 2:36 PM LEGAL SUPPORT ASSISTANT Body Mass Index 30.01 01/02/2023 2:36 PM LEGAL SUPPORT ASSISTANT Plan of Treatment Upcoming Encounters Date Type Department Care Team (Late st Contact Info) Description 03/23/2025 10:00 AM LEGAL SUPPORT ASSISTANT Office Visit [facility] Oncology and Hematology - Mehul [address] [facility] [address] [place] [address] Pierre Andres MD [address] [facility] [address] [place] [address] Health Maintenance Due Date Last Done Comments COLORECTAL SCREENING 1995 Colorectal Cancer Screening 1995 FIT-DNA Q 3 years 1995 FIT/FOBT Q 1 year 1995 Flex Sig/CT Colonography Q 5 years 1995 ZOSTER VACCINE (1 of 2) 2000 OSTEOPOROSIS SCREENING 07/15/2020 6, 07/16/2015, 12/13/2012 BREAST CANCER SCREENING 08/04/2020 08/05/19 20, 07/25/2018, 07/25/2018, Additional history exists DTAP/TDAP/TD VACCINES (2 - T d or Tdap) 11/27/2020 11/27/2010 INFLUENZA VACCINE (#1) 2024 0, 12/15/2014, 12/02/2013 COVID-19 Vaccine (3 - 2024-2 6 season) 2024 05/13/2020, 04/16/2020 RSV VACCINE (60+ or ) (1 - 1-dose 75+ series) 2025 PNEUMOCOCCAL VACCINE 50+ YEARS Completed 04/05/2016 , 09/07/2015 [address] [employer] [place] [address] [place] [address] Care Teams Alarm Mechanism Adjuster Relationship Specialty Start Date End Date Jayy Morris DO [address] [facility] [address] [place] [address] PCP - General Internal Medicine 01/02/23
--- OUTSIDE RECORDS SUMMARY | 2025-01-20 12:44 | XMS_ITS | Encounter Summary ---
Author Organization [facility] Address [address] [place] [address] Care Team Providers Care White Metal Corrosion Proofer Name Role Phone Jayy Morris DO Primary Care Provider Encounter Details Date Type Department Care Team (Late Contact Info) Description 01/17/1999 Outpatient Historical Division of Neurology [address] 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 Oncology and Hematology - [address] [place] [address] Pierre Andres MD [address] [facility] [address] [place] [address] documented as of this encounter Visit Diagnoses Not on filedocumented in this encounter Care Teams White Metal Corrosion Proofer Relationship Specialty Start Date End Date Jayy Morris DO [address] [facility] [address] [place] [address] PCP - General Internal Medicine 01/02/23 documented as of this encounter
--- OUTSIDE RECORDS SUMMARY | 2025-01-20 12:44 | XMS_ITS | Encounter Summary ---
Author Organization [facility] Address [address] [place] [address] Care Team Providers Care Home Extension Agent Name Role Phone Jayy Morris DO Primary Care Provider Encounter Details Date Type Department Care Team (Late Contact Info) Description 01/24/2002 Outpatient Historical Division of Neurology 1 [facility] [address] Balaji Arciniega MD [address] [facility] [address] [place] [address] Social History Tobacco Use Types Packs/Day Years Used Date Smoking Tobacco: Never Assessed Comments Unknown Sex and Gender Information Value Date Recorded Sex Assigned at Not on file Legal Sex Female 4:23 AM VIDEO CLERK Gender Identity Not on file Sexual Orientation Not on file documented as of this encounter Plan of Treatment Upcoming Encounters Date Type Department Care Team (Late Contact Info) Description 03/23/2025 10:00 AM VIDEO CLERK Office Visit [facility] Oncology and Hematology - [address] [place] [address] Pierre Andres MD [address] [facility] [address] [place] [address] documented as of this encounter Visit Diagnoses Not on filedocumented in this encounter Care Teams Home Extension Agent Relationship Specialty Start Date End Date Jayy Morris DO [address] [facility] [address] [place] [address] PCP - General Internal Medicine 01/02/23 documented as of this encounter
--- OUTSIDE RECORDS SUMMARY | 2025-01-20 12:44 | XMS_ITS | Encounter Summary ---
Author Organization [facility] Address [address] [place] [address] Care Team Providers Care Motor Equipment Commanding Officer Name Role Phone Jayy Morris DO Primary Care Provider Encounter Details Date Type Department Care Team (Late Contact Info) Description 05/10/2006 Outpatient Historical Division of Neurology [address] [facility] [address] Balaji Arciniega MD [address] [facility] [address] [place] [address] Social History Tobacco Use Types Packs/Day Years Used Date Smoking Tobacco: Never Assessed Comments Unknown Sex and Gender Information Value Date Recorded Sex Assigned at Not on file Legal Sex Female 4:23 AM EDUCATION DEAN Gender Identity Not on file Sexual Orientation Not on file documented as of this encounter Plan of Treatment Upcoming Encounters Date Type Department Care Team (Late Contact Info) Description 03/23/2025 10:00 AM EDUCATION DEAN Office Visit [facility] Oncology and Hematology - [address] [place] [address] Pierre Andres MD [address] [facility] [address] [place] [address] documented as of this encounter Visit Diagnoses Not on filedocumented in this encounter Care Teams Motor Equipment Commanding Officer Relationship Specialty Start Date End Date Jayy Morris DO [address] [facility] [address] [place] [address] PCP - General Internal Medicine 01/02/23 documented as of this encounter
--- OUTSIDE RECORDS SUMMARY | 2025-01-20 12:44 | XMS_ITS | Encounter Summary ---
Author Organization [facility] Address [address] [place] [address] Phone Care Team Providers Care Backwinder Name Role Phone Jurgen Duenas MD Primary Care Provider + [phone] Aubree Burch MD Unavailable [phone] Roddy Junior MD PhD Unavailable [phone] Ester Carranza MD Unavailable [phone] Cristian Barrera MD Unavailable [phone] Jayy Morris DO Primary Care Provider [phone] Encounter Details Date Type Department Care Team (Late st Contact Info) Description 04/06/2017 Orders Only [facility] ProviderColt MD [address] [place] [address] Social History Tobacco Use Types Packs/Day Years Used Date Smoking Tobacco: Never Smokeless Tobacco: Never Alcohol Use Standard Drinks/Week Comments Yes 0 (1 standard drink = 0.6 oz pur e alcohol) Comments No Sex and Gender Information Value Date Recorded Sex Assigned at Not on file Legal Sex Female 6:23 PM MANAGER INTEGRATED Gender Identity Female 06/10/2020 8:32 AM CDT Sexual Orientation Not on file documented as of this encounter Functional Status documented as of this encounter Plan of Treatment Not on file documented as of this encounter Procedures Procedure Name Priority Date/Time Associated Diagnosis Comments DISCHARGE LABORATORY CUMULATIVE REPORT 04/06/2017 12:00 AM MANAGER INTEGRATED documented in this encounter Results * DISCHARGE LABORATORY CUMULATIVE REPORT (04/06/2017 12:00 AM MANAGER INTEGRATED) Narrative 04/06/2017 12:00 AM MANAGER INTEGRATED Ordered by an unspecified provider. us Historical [...] documented as of this encounter Care Teams Backwinder Relationship Specialty Start Date End Date Jurgen Duenas MD [address] [facility] [address] [place] [address] PCP - General 05/19/16 11/16/20 Jayy Morris DO [address] [facility] [address] [place] [address] PCP - General Internal Medicine 06/01/21 Aubree Burch MD [address] [facility] [address] [place] [address] Pit Recorder Obstetrics and Gynecology 11/15/16 Roddy Junior MD PhD [address] [place] [address] Medical Oncologist/Flight Operations Specialist Hematology 11/15/16 Ester Carranza MD [address] [place] [address] Plastic Surgery 11/15/16 Cristian Barrera MD [address] [facility] [address] [place] [address] Surgeon Orthopedic Surgery 08/09/20 documented as of this encounter
--- OUTSIDE RECORDS SUMMARY | 2025-01-20 12:44 | XMS_ITS | Encounter Summary ---
Author Organization [facility] Address [address] [place] [address] Care Team Providers Care Continuous Process Tanner Rotary Drum Name Role Phone Jayy Morris DO Primary Care Provider Encounter Details Date Type Department Care Team (Late Contact Info) Description 05/04/2003 Outpatient Historical Division of Neurology [address] [facility] [address] Balaji Arciniega MD [address] [facility] [address] [place] [address] Social History Tobacco Use Types Packs/Day Years Used Date Smoking Tobacco: Never Assessed Comments Unknown Sex and Gender Information Value Date Recorded Sex Assigned at Not on file Legal Sex Female 4:23 AM SUPERVISOR GARAGE Gender Identity Not on file Sexual Orientation Not on file documented as of this encounter Plan of Treatment Upcoming Encounters Date Type Department Care Team (Late Contact Info) Description 03/23/2025 10:00 AM SUPERVISOR GARAGE Office Visit [facility] Oncology and Hematology - Mehul [address] [place] [address] Pierre Andres MD [address] [facility] [address] [place] [address] documented as of this encounter Visit Diagnoses Not on filedocumented in this encounter Care Teams Continuous Process Tanner Rotary Drum Relationship Specialty Start Date End Date Jayy Morris DO [address] [facility] [address] [place] [address] PCP - General Internal Medicine 01/02/23 documented as of this encounter
--- OUTSIDE RECORDS SUMMARY | 2025-01-20 12:44 | XMS_ITS | Clinical Summary ---
Author Organization [facility] Address [address] [place] [address] Care Team Providers Care Master Police Detective Name Role Phone Aubree Burch MD Unavailable [phone] Roddy Junior MD PhD Unavailable [phone] Ester Carranza MD Unavailable [phone] Cristian Barrera MD Unavailable [phone] Jayy Morris DO Primary Care Provider [phone] Allergies Active Allergy Reactions Criticality Noted Date Comments Adhesive Itching Low 09/25/2023 Adhesive Tape-Silicones Other (See comments) Low Alendronate Sodium Other (See comments) Low 024 Atorvastatin Cyclosporine Vision changes Medium 09/25/2023 Apixaban Diarrhea Low 06/01/2021 Exemestane Muscle pain,Swelling Medium 06/01/2021 Alendronate Urticaria Medium 06/01/2021 Ibandronate Ibandronate Sodium Rash Medium 09/25/2023 Melatonin Other (See comments),Mental status changes Low 09/21/2022 Meloxicam Other (See comments) Low 06/16/2021 Nose bleed Piroxicam Other (See comments) High 09/25/2023 Reaction: nose bleeds, Rosuvastatin Other (See comments),Unknown Low 06/01/2021 Stopped 2010 Tamoxifen Other (See comments) Low 11/15/2016 Blood clots Zolpidem Other (See comments) High 09/25/2023 Reaction: depression, Medications cholecalciferol (VITAMIN D-3) 5,000 unit tablet Take 1 tablet (5,000 Units total) by mouth daily Active pravastatin (PRAVACHOL) 40 mg tablet TAKE 1 TABLET BY MOUTH EVERY OTHER DAY 45 tablet 3 0 Active omeprazole (PriLOSEC) 20 mg capsule TAKE 1 CAPSULE BY MOUTH DAILY BEFORE BREAKFAST 90 capsule 1 Active amitriptyline (ELAVIL) 10 mg tablet TAKE 1 [...] Active Additional Information Patient not taking.Reported on 10/17/2024 senna-docusate (PERICOLACE) 8.6-50 mgIndications:c onstipation Take 2 tablets by mouth 2 (two) times a day 80 tablet 3 Active aspirin 81 mg enteric coated tabletIndicatio ns:Deep [...] Active Additional Information Patient not taking.Reported on 10/17/2024 apixaban (Eliquis) 5 mg tabletIndicatio ns:Venous Thrombosis [...] tablet by mouth daily Active levETIRAcetam (KEPPRA) 250 mg tablet Take 1 tablet (250 mg total) by mouth 2 (two) times a day Take with the 1000mg tablet twice daily 180 tablet 3 5 Active levETIRAcetam (KEPPRA) 1,000 mg tablet TAKE 1 TABLET TWICE A DAY 180 tablet 3 5 Active ketorolac (ACULAR) 0.5 % ophthalmic solution INSTILL 1 DROP INTO SURGICAL EYE THREE TIMES DAILY STARTING AFTER SURGERY AND CONTINUE FOR 3 WEEKS 5 Active calcium carbonate (OS-MERCEDES) 1,500 mg (600 mg elemental) tablet Take 600 mg by mouth 1 Active Active Problems Problem Noted Date Diagnosed [...] problems Assessment & Plan (02/22/2018 1:07 PM DESULFURIZER OPERATOR): MRI did not show any significant problems [...] December Assessment & Plan (02/22/2018 1:08 PM DESULFURIZER OPERATOR): Use claritin 10mg daily Use flonase 2 sprays per nostril daily Personal history of breast cancer 11/15/2016 04/19/2017 Breast mass 11/15/2016 04/19/2017 Osteopenia 11/28/2011 05/22/2017 Overview (05/26/2016): Osteopenia Immunizations Immunization Administration Dates Next Due Influenza, Quad, Adjuvantate [...] reflux 1973 High cholesterol 2006 Seizures (HCC) 1972 Nocturnal Seizu res Breast cancer (HCC) 2010 Right side Insomnia GERD (gastroesophageal reflux disease) Dizziness Osteoporosis 2020 Kidney stone 2003 TMJ (dislocation of temporomandibular joint) LEFT Family History Medical History Relation Name Comments Arthritis Father Morrologan Magañaer Heart failure Father Morro Ethier heart failu [...] on file Legal Sex Female 6:23 PM DESULFURIZER OPERATOR Gender Identity Female 06/10/2020 8:32 AM CDT [...] Sign Reading Time Taken Comments Blood Pressure 132/78 05/14/2024 2:24 PM CDT Pulse 64 05/14/2024 2:24 PM CDT Temperature 36.7 C (98.1 F) 09/20/2022 8:47 AM CDT Respiratory Rate 16 09/20/2022 8:47 AM CDT Oxygen Saturation 94% 05/23/2023 2:00 PM CDT Inhaled Oxygen Concentration - - Weight 91.2 kg (201 lb) 05/14/2024 2:24 PM CDT Height 175.3 cm (5' 9) 05/14/2024 2:24 PM CDT Body Mass Index 29.68 05/14/2024 2:24 PM CDT Plan of Treatment Health Maintenance Due Date Last Done Comments Hepatitis C Screening 1950 Hepatitis B Screening 1968 Osteoporosis Screening-Bone Density Scan 07/15/2017 07/16/2015, 12/13/2012 Well Visit 65+ 05/29/2019 05/28/2018, 06/2017, 05/22/2017 Breast Cancer Screening-Mammogram 07/26/2019 019, 06/25/2017 Depression Screening 08/01/2019 07/31/2018, 05/28/2018, 05/22/2017, Additional history exists DTaP/Tdap/Td Vaccine (2 - Td or Tdap) 11/27/2020 11/27/2010 Zoster Vaccine (3 of 3) 12/28/2021 11/02/2021, 07/07 Fall Risk Assessment 09/21/2023 09/20/2022, 07/31/2018, 05/28/2018, Additional history exists Colon Cancer Screening-Colonoscopy 07/24/2024 07/24/2014 Covid-19 Vaccine ( - 2024-2 6 season) 2024 07/07/2021, 12/13/2020, 05/13/2020, Additional history exists Influenza Vaccine (#1) 2024 , 12/15/2014, 12/02/2013, Additional history exists Colon Cancer Screening-CT Colonography Discontinued 07/24/2014 Colon Cancer Screening-DNA Stool Discontinued 07/25/19 15 Colon Cancer Screening-FIT Discontinued 07/24/2014 Colon Cancer Screening-Sigmoidoscopy Discontinued 07/24/2014 Pneumococcal vaccine 65+ Completed 017, 04/05/2016, 09/07/2015, Additional history exists Medical Devices Implanted Type Area Electronics Engineering Technician Device Identifier Shelf Expiration Date Model / Serial / Lot [employer] Bi Mentum 53mm Press Fit Femoral Proximal Cup Acetabular [id number] - [id number] Implanted:Qty: 1 on 09/19/2022 by Gamaliel Sampson MD at [facility] Left: Hip [employer] 10/19/2024 [id number] / / [id number] [employer] Liner Acet Hip Size 28 Poly Bi Mentum Altrx 53mm [id number] - [id number] Implanted:Qty: 1 on 09/19/2022 by Gamaliel Sampson MD at [facility] Left: Hip [employer] 11/18/2026 [id number] / / [id number] [employer] Actis Collar Hip 8 Standard Offset Stem Femoral [id number] - [id number] Implanted:Qty: 1 on 09/19/2022 by Gamaliel Sampson MD at [facility] Left: Hip [employer] 10/20/2031 [id number] / / [id number] [employer] Articul/Roman 28mm Cementless Hip +1.5mm 02/01 Taper Head Femoral Latex Free [id number] - [id number] Implanted:Qty: 1 on 09/19/2022 by Gamaliel Sampson MD at [facility] Left: Hip [employer] 07/20/2027 [id number] / / [id number] Procedures Procedure Name Priority Date/Time Associated Diagnosis [...] screening mammogram for malignant neoplasm of breast. Prior Study Comparisons: Comparison was made to the prior available relevant studies at the time of interpretation. Findings: No significant masses, malignant type calcifications, skin thickening, nipple retraction, or significant lymphadenopathy is noted in this breast. The CAD review showed no significant findings. The breast is heterogeneously dense, which may obscure small masses. The patient will be notified of results by letter. Impression: BI-RADS ATLAS category (left): 1 Negative There is no mammographic evidence of malignancy. [...] CDT Narrative 07/16/2015 1:22 PM CDT EXAM: Bone mineral density [facility]. HISTORY: Status post hysterectomy at the age of 29. Patient currently taking calcium and vitamin D. DXA BMD was done at [facility] on a Multiplicom CI. Precision testing at this site has [...] Requesting: MIKEY MALLORY M.D. Requesting Requesting ID: [id number] Attending Attending ID: [id number] Completed Time: 07/16/2015 12:17 AM Dictated Time: [...] Colt - 06/21/2016 EXAM: Bone mineral density [facility]. HISTORY: Status post hysterectomy at the age of 29. Patient currently taking calcium and vitamin D. DXA BMD was done at [facility] on a Multiplicom CI. Precision testing at this site has [...] Requesting: MIKEY MALLORY M.D. Requesting Requesting ID: [id number] Attending Attending ID: [id number] Completed Time: 07/16/2015 12:17 AM Dictated Time: [...] DXA PROCEDURES Final Result * COLONOSCOPY (07/24/2014) HM Colonoscopy Normal us Historical Provider HEALTH MAINTENANCE [...] Please contact Infection Prevention. 09/19/2022 09/19/2022 Insurance [facility] [facility] [place] [address] [employer] Advance Directives For more information, please contact: [phone] Documents on File Type Date Recorded Patient Air Sampling And Monitoring Expl anation ADVANCE DIRECTIVE 09/21/2022 9:34 AM POWER OF TROUBLE TRACER-MEDICAL * Full Code (Latest Code Status on File) Date Activated Date Inactivated Comments 09/19/2022 11:51 AM 09/20/2022 3:36 PM Care Teams Master Police Detective Relationship Specialty Start Date End Date Jayy Morris DO [address] [place] [address] PCP - General Internal Medicine 06/01/21 Aubree Burch MD Mig Tig Welder Obstetrics and Gynecology 11/15/16 Roddy Junior MD PhD [address] [place] [address] Medical Oncologist/Vending Manager Hematology 11/15/16 Ester Carranza MD [address] [place] [address] Plastic Surgery 11/15/16 Cristian Barrera MD [address] [address] Surgeon Orthopedic Surgery 08/09/20
--- OUTSIDE RECORDS SUMMARY | 2025-01-20 12:44 | XMS_ITS | Encounter Summary ---
Author Organization [facility] Address [address] [place] [address] Care Team Providers Care Central Sterile Technician Name Role Phone Jayy Morris DO Primary Care Provider Encounter Details Date Type Department Care Team (Late Contact Info) Description 02/06/2000 Outpatient Historical Division of Neurology [address] [place] [address], [address] [address] Balaji Arciniega MD [address] [facility] [address] [place] [address] Social History Tobacco Use Types Packs/Day Years Used Date Smoking Tobacco: Never Assessed Comments Unknown Sex and Gender Information Value Date Recorded Sex Assigned at Not on file Legal Sex Female 4:23 AM STRUCTURAL ENGINEERING DRAFTING OFFICER Gender Identity Not on file Sexual Orientation Not on file documented as of this encounter Plan of Treatment Upcoming Encounters Date Type Department Care Team (Late Contact Info) Description 03/23/2025 10:00 AM STRUCTURAL ENGINEERING DRAFTING OFFICER Office Visit [facility] Oncology and Hematology - Mehul [address] [place] [address] Pierre Andres MD [address] [facility] [address] [place] [address] documented as of this encounter Visit Diagnoses Not on filedocumented in this encounter Care Teams Central Sterile Technician Relationship Specialty Start Date End Date Jayy Morris DO [address] [facility] [address] [place] [address] PCP - General Internal Medicine 01/02/23 documented as of this encounter
[2025-01-20] MEDS: CYCLOBENZAPRINE HCL 10 MG TABLET PO (13:41)
[2025-01-20] MEDS: ACETAMINOPHEN 500 MG TABLET 1000 MG PO (13:41)
--- NOTE | 2025-01-20 16:13 | ED.GENADULT ---
HPI - General Adult General Chief complaint: Fall <SHIRA Bernardo - Last Filed: 01/20/25 18:46> Stated complaint: fall on 01/18 i think i broke my butt <SHIRA Bernardo - Last Filed: 01/20/25 18:46> Time Seen by Provider: 01/20/25 11:55 <SHIRA Bernardo - Last Filed: 01/20/25 18:46> History of Present Illness HPI narrative: 74-year-old female presenting after a fall on Sunday morning. She reports that she did affect the head but denies consciousness, nausea/vomiting constipation chills, dizziness, or weakness. She presently is not reporting a headache however she is endorsing bilateral upper buttock pain. The pain does not radiate anywhere and there are no overlying skin changes. She states that she is still able to ambulate but that it is painful. Patient is Eliquis for previous DVTs and had a left-sided hip replacement in 2022. Denies numbness/tingling and urine/bowel incontinence/retention. <SHIRA Bernardo - Last Filed: 01/20/25 18:46> Related Data Home medications: Home Medications ?Medication ?Instructions ?Recorded ?Confirmed ?Last Taken ?Type calcium carbonate (Calcium 600) 600 mg PO DAILY 04/13/20 12/29/24 12/25/20 History cholecalciferol (vitamin D3) 125 125 mcg PO DAILY 04/13/20 12/29/24 12/25/20 History mcg (5,000 unit) capsule mecobalamin (vitamin B12) 1,000 1,000 mcg PO DAILY 04/13/20 12/29/24 12/25/20 History mcg chewable tablet multivitamin (One-A-Day Essential 1 tablet PO DAILY 04/13/20 12/29/24 12/25/20 History tablet) vit C,E,copper,zinc-nksar0m 250 1 cap PO DAILY 04/13/20 12/29/24 12/25/20 History mg-lutein 5 mg-zeaxanthin 1 mg capsule (Ocuvite Adult 50 Plus) antiarthritic combination no.2 900 900 mg PO BID 11/17/20 12/29/24 12/25/20 History mg tablet (glucosamine-chondroitin) <SHIRA Bernardo - Last Filed: 01/20/25 18:46> Allergies/adverse reactions: Allergies Allergy/AdvReac Type Severity Reaction Status Date / Time alendronate sodium (From Allergy Mild scalp Verified 12/29/24 10:29 Fosamax) burning,hairloss,acid reflux adhesive Allergy Unknown ITCHING Verified 12/29/24 10:29 cyclosporine (From Restasis) Allergy Blurry Verified 12/29/24 10:29 Vision exemestane Allergy Swelling Verified 12/29/24 10:29 ibandronate sodium (From Allergy Rash Verified 12/29/24 10:29 Boniva) melatonin Allergy Depression Verified 12/29/24 10:29 piroxicam Allergy Nose Bleed Verified 12/29/24 10:29 tamoxifen Allergy Gave leg Verified 12/29/24 10:29 blood clot zolpidem Allergy Depression Verified 12/29/24 10:29 Astrastatin Allergy Mild Nose Bleed Uncoded 06/17/24 13:03 crestor Allergy Mild Unknown Uncoded 06/17/24 13:03 <SHIRA Bernardo - Last Filed: 01/20/25 18:46> Review of Systems Review of Systems: All systems reviewed & are unremarkable except as noted in HPI and below <SHIRA Bernardo - Last Filed: 01/20/25 18:46> PMFSH Past Medical History Medical History: Medical History Cough Fatigue Shortness of Breath History of breast cancer Swelling of right lower extremity Screening for colon cancer Left groin pain Diarrhea Other specified disorders of nose and nasal sinuses TMJ (temporomandibular joint disorder) Otalgia of left ear Vitamin D deficiency Chest discomfort Adenomatous colon polyp Broken leg Right 03/2020 Seizures Mild acid reflux Constipation Wears glasses Vision changes Osteopenia High cholesterol Nocturnal seizures Breast cancer <SHIRA Bernardo - Last Filed: 01/20/25 18:46> Surgical History Surgical History: Surgical History Status post left hip replacement Hx of total mastectomy of right breast H/O reduction mammoplasty 11/28/2010: Left breast Liposuction, signals intelligence analysis manager removed, permanent put in Right nipple reconstruction: 06/05/2011 H/O shoulder surgery Right: 03/24/2005 H/O hernia repair 1979 History of appendectomy 1979 History of tonsillectomy 1958 History of hysterectomy 1979 History of arthroscopy of left knee 09/14/1997 History of rotator cuff surgery H/O mastectomy Right: 06/28/2010 <SHIRA Bernardo - Last Filed: 01/20/25 18:46> Family History Family History: Family History Mother Cerebrovascular accident Sibling Thyroid disease Other Arthritis <SHIRA Bernardo - Last Filed: 01/20/25 18:46> Social History Social History: Social History Smoking status: Never smoker Alcohol intake: current Drinks per week: 7 Substance use: never Substance use type: does not use Lack of Transportation: No Lack of Food: Never True Current Housing: I Have Housing Concerned About Future Housing: No Difficulty Paying Gas/Electric Bills: No Difficulty Paying for Meds: No Currently Unemployed: No Difficulty w/ Childcare or Family Care: No Living arrangements: with family Gender identity (if verbalized by the patient): Female Spiritual care concerns: No <SHIRA Bernardo - Last Filed: 01/20/25 18:46> Exam Narrative: GENERAL: No acute distress. HEAD: Normocephalic, atraumatic. EYES: PERRLA and EOMI. ENT: Nares clear, no rhinorrhea or epistaxis. Mucous membranes moist. Oropharynx without tonsillar hypertrophy exudate or other lesions. Bilateral TMs pearly schreiber non-bulging NECK: Supple. No adenopathy or masses. No carotid bruits or JVD CHEST: Clear to auscultation. No respiratory distress. No wheezes rales or rhonchi HEART: Regular rate and rhythm. No murmur heard. Normal peripheral pulses. ABDOMEN: Soft, nontender, nondistended, normal active bowel sounds. EXTREMITIES: Normal range of motion. No edema. Bilateral upper buttocks TTP but no TTP of lumbar spine. SKIN: Warm, dry, no rash. NEURO: No focal deficits. Alert and oriented x3. No pronator drift or facial droop. PSYCH: Normal mood and affect <SHIRA Bernardo - Last Filed: 01/20/25 18:46> Course CHEMICAL LAB SUPERVISOR/PA Physician Supervision This visit was performed by both a physician and an APC; I performed all aspects of the medical decision making component of this evaluation as documented. <Tamera Fagan MD - Last Filed: 01/20/25 18:56> Vital Signs Vital signs: Vital Signs Temperature 97.2 F L 01/20/25 11:48 Pulse Rate 72 01/20/25 11:48 Respiratory Rate 18 01/20/25 11:48 Blood Pressure 130/102 H 01/20/25 11:48 Pulse Oximetry 99 01/20/25 11:48 Oxygen Delivery Room Air 01/20/25 11:48 Temperature 97.2 F L 01/20/25 11:48 Pulse Rate 72 01/20/25 11:48 Respiratory Rate 18 01/20/25 11:48 Blood Pressure 130/102 H 01/20/25 11:48 Pulse Oximetry 99 01/20/25 11:48 Oxygen Delivery Room Air 01/20/25 11:48 <SHIRA Bernardo - Last Filed: 01/20/25 18:46> Vital Signs Temperature 97.2 F L 01/20/25 11:48 Pulse Rate 72 01/20/25 11:48 Respiratory Rate 18 01/20/25 11:48 Blood Pressure 130/102 H 01/20/25 11:48 Pulse Oximetry 99 01/20/25 11:48 Oxygen Delivery Room Air 01/20/25 11:48 Temperature 97.2 F L 01/20/25 11:48 Pulse Rate 72 01/20/25 11:48 Respiratory Rate 18 01/20/25 11:48 Blood Pressure 130/102 H 01/20/25 11:48 Pulse Oximetry 99 01/20/25 11:48 Oxygen Delivery Room Air 01/20/25 11:48 <Tamera Fagan MD - Last Filed: 01/20/25 18:56> MDM MDM Narrative Medical decision making narrative: 74-year-old female presenting after a fall on Sunday. She reports that she did affect the head but denies consciousness, nausea/vomiting constipation chills, dizziness, or weakness. She presently is not reporting a headache however she is endorsing bilateral upper buttock pain. The pain does not radiate anywhere and there are no overlying skin changes. She states that she is still able to ambulate but that it is painful. Patient is Eliquis for previous DVTs. Denies numbness/tingling and urine/bowel incontinence/retention. Upon my initial assessment patient is nontoxic and has stable vitals. Neuro exam intact. All imaging demonstrates no acute abnormalities. Administered Flexeril and Tylenol which improved patient's symptoms. Will plan to discharge home with Flexeril. Patient agrees with discussion and after shared medical decision making agrees with plan of care. All questions were answered to the patient's satisfaction. The patient is appropriate for outpatient treatment and follow-up. Given reasons to return <SHIRA Bernardo - Last Filed: 01/20/25 18:46> Differential Diagnosis Differential Diagnosis: Differential diagnostic considerations for back pain include herniated disc, sciatica, abscess, strain/sprain, discitis, myelitis, fracture, hematoma, cauda equina, osteomyelitis, metastatic and/or primary malignancy, renal colic, pyelonephritis, AAA. <SHIRA Bernardo - Last Filed: 01/20/25 18:46> Lab Data MDM Lab Attestation statement: I personally reviewed the patient's lab results. <SHIRA Bernardo - Last Filed: 01/20/25 18:46> Imaging Data Attestation: I personally reviewed and interpreted this imaging study as follows: <SHIRA Bernardo - Last Filed: 01/20/25 18:46> Radiologist's impression: ITS Impressions Hip/Pelvis X-Ray 01/20/25 13:01 Impression: 1: No acute fracture. Lumbar Spine CT 01/20/25 13:19 Impression: No acute abnormality. Head CT 01/20/25 13:20 Impression: 1.No acute intracranial abnormality. Cervical Spine CT 01/20/25 13:21 Impression: No acute abnormality. <SHIRA Bernardo - Last Filed: 01/20/25 18:46> ITS Impressions Hip/Pelvis X-Ray 01/20/25 13:01 Impression: 1: No acute fracture. Lumbar Spine CT 01/20/25 13:19 Impression: No acute abnormality. Head CT 01/20/25 13:20 Impression: 1.No acute intracranial abnormality. Cervical Spine CT 01/20/25 13:21 Impression: No acute abnormality. <Tamera Faagn MD - Last Filed: 01/20/25 18:56> Discharge Plan Discharge Clinical Impression: Fall, Lower back pain, Buttock pain <SHIRA Bernardo - Last Filed: 01/20/25 18:46> Patient Disposition: Home <SHIRA Bernardo - Last Filed: 01/20/25 18:46> Condition: Stable <SHIRA Bernardo - Last Filed: 01/20/25 18:46> Instructions: Back Pain (ED) <SHIRA Bernardo - Last Filed: 01/20/25 18:46> Additional Instructions: You may take Tylenol as needed for pain. Take muscle relaxers as needed and prescribed. Recommend taking these at night as they may cause sedation. Do not drive, operate heavy machinery, drink alcohol while on muscle relaxers as this may cause further sedation. Follow-up with your primary care doctor in the next 1 week for further evaluation. Return to the ED if you experience worsening or severe pain, recurrent injury, numbness in groin, weakness of legs, going to the bathroom without meaning to, unable to keep down food or drink, or any other symptoms of concern. <SHIRA Bernardo - Last Filed: 01/20/25 18:46> Patient Language: Malay <SHIRA Bernardo - Last Filed: 01/20/25 18:46> Prescriptions: New cyclobenzaprine 10 mg tablet 10 mg PO TID PRN (Reason: muscle spasm) Qty: 20 0RF No Action amoxicillin-pot clavulanate 875-125 mg tablet 1 tablet PO Q12H Qty: 20 0RF Rx Instructions: take with food, recommend taking probiotic while taking this medication acetaminophen-codeine 300-30 mg tablet 1 tablet PO Q6H PRN (Reason: pain) Qty: 10 0RF Rx Instructions: headache multivitamin [One-A-Day Essential] Tablet 1 tablet PO DAILY mecobalamin (vitamin B12) 1,000 mcg tablet,chewable 1,000 mcg PO DAILY cholecalciferol (vitamin D3) 125 mcg (5,000 unit) capsule 125 mcg PO DAILY calcium carbonate [Calcium 600] 600 mg calcium (1,500 mg) tablet 600 mg PO DAILY Ocuvite Adult 50 Plus 250-5-1 mg capsule 1 cap PO DAILY glucosamine-chondroitin 900 mg tablet 900 mg PO BID Eliquis 5 mg tablet 5 mg PO BID Qty: 180 0RF levetiracetam [Keppra] 750 mg tablet 1,000 mg PO BID Qty: 180 0RF Rx Instructions: LAST REFILL UNTIL SEEING NEUROLOGY pravastatin 40 mg tablet See Rx Instructions .ROUTE .COMPLEX Qty: 45 1RF Dose Instruction: TAKE 1 TABLET EVERY OTHER DAY Rx Instructions: TAKE 1 TABLET EVERY OTHER DAY <SHIRA Bernardo - Last Filed: 01/20/25 18:46> Follow-up/Referrals: Jayy Morris DO [Primary Care Provider, Internal Medicine] <SHIRA Bernardo - Last Filed: 01/20/25 18:46>
== END 2025-01-20 14:00 | disposition home or self-care (01) ==
PROVIDERS: PCP Internal Medicine
DX: S39.92XA Unspecified injury of lower back, initial encounter (principal); E78.00 Pure hypercholesterolemia, unspecified; E55.9 Vitamin D deficiency, unspecified; K21.9 Gastro-esophageal reflux disease without esophagitis; M85.80 Other specified disorders of bone density and structure, unspecified site; Z96.642 Presence of left artificial hip joint; Z86.0101 Personal history of adenomatous and serrated colon polyps; Z85.3 Personal history of malignant neoplasm of breast; Z90.11 Acquired absence of right breast and nipple; Z90.710 Acquired absence of both cervix and uterus; Z79.01 Long term (current) use of anticoagulants; Z79.899 Other long term (current) drug therapy; W19.XXXA Unspecified fall, initial encounter
CPT/HCPCS: 70450; 72125; 72131; 73521; 99284; A9270

== ENCOUNTER 2025-02-16 15:28 | Outpatient (CLI) | payer MEDICARE, SELFPAY ==
--- NOTE | ~2025-02-16 | MM_ITS ---
EXAMINATION: MM screening kemal LT w enrike HISTORY: Screening. Right mastectomy. Left reduction. TECHNIQUE: Craniocaudal and mediolateral oblique 3-D tomosynthesis images were obtained and synthetic 2-D images were generated. CAD analysis was submitted and interpreted. COMPARISON: 2023, 2022, and 2020. BREAST PARENCHYMAL COMPOSITION: The breast tissue is heterogeneously dense. The dense tissue may obscure small masses mammographically. FINDINGS: There are findings consistent with the known breast cysts. No suspicious masses are seen. There are no suspicious calcifications. Postop changes are seen. No unexplained architectural distortion is seen. There are no skin or nipple abnormalities identified. There is no adenopathy seen on the images submitted. IMPRESSION: No mammographic evidence to suggest malignancy is seen. The patient may return to screening mammography as per ACR guidelines. BI-RADS 2 - Benign. Reviewed, dictated and finalized at location C. AINABILITY MANAGER
== END 2025-02-16 15:29 | disposition home or self-care (01) ==
LOC: MICIMG 15:28
PROVIDERS: PCP Internal Medicine; Visit Provider Clinical Nurse Specialist
DX: Z12.31 Encounter for screening mammogram for malignant neoplasm of breast (principal)
CPT/HCPCS: 77063; 77067